=== PATIENT | male | born 1965 | race Caucasian/White ===

== ENCOUNTER 2016-07-20 06:43 | Day surgery (SDC) | payer BC ==
[2016-07-16 11:26] VITALS: BMI 33.0
[~2016-07-20 06:43] MED LIST: LACTATED RINGERS 1,000 ML IV SCH
[2016-07-20 07:04] VITALS: RESP 18; TEMP 98.2
[2016-07-20] MEDS ORDERED: LIDOCAINE 1% 20 ML VIAL (10MG/ML) FOR IV START SQ ONE (07:14)
[2016-07-20] MEDS ORDERED: LACTATED RINGERS 1,000 ML IV ONE (07:16)
[2016-07-20] MEDS ORDERED: fentaNYL (PF) 50 MCG/ML 2 ML AMP ONE (07:40)
[2016-07-20] MEDS ORDERED: IOHEXOL 180 MG/ML 1 ML ML ONE (07:40)
[2016-07-20] MEDS ORDERED: BUPIVACAINE (PF) 0.25% 30 ML VIAL ONE (07:40)
[2016-07-20] MEDS ORDERED: MIDAZOLAM 2 MG/2 ML VIAL ONE (07:40)
[2016-07-20] MEDS ORDERED: TRIAMCINOLONE ACETONIDE 40 MG/ML 1 ML VIAL ONE (07:40)
--- NOTE | 2016-07-20 08:14 | P.PCN ---
Date of Procedure: 07/20/16 Preoperative Diagnosis: Left lumbar radiculopathy Postoperative Diagnosis: Left lumbar radiculopathy Procedure(s) Performed: Lumbar epidural steroid injection under fluoroscopic guidance Implants: Anesthesia: MAC Surgeon: Librado Valdez Pathology: none sent Condition: stable Disposition: PACU Indications for Procedure: Operative Findings: Description of Procedure: The patient was seen in preoperative holding area consent was obtained then he was brought into the procedure room and placed in prone position. Skin was prepped with Betadine 3 and draped in a sterile manner. Lidocaine 1% was used to numb the skin over the target point was at the L4 5 level in the left paramedian approach. I used 5 inch 18-gauge Touhy epidural needle with loss-of- resistance to air to identify the epidural space. There was positive loss-of- resistance to air at about 11 cm from skin negative aspiration for any CSF or blood negative paresthesia. 1 mL of Omnipaque was given given which showed typical epidurogram on AP and lateral views of fluoroscopy after that I injected 40 mg of Kenalog +2 MLS of Marcaine 0.25% +4 MLS of preservative free normal saline to a total volume of 7 MLS in epidural space. Pt tolerated Procedure well. I ordered an MRI on the lumbar spine without contrast for the patient's lumbar radiculopathy on the left side and I will give him prescription of Percocet to last him until he comes back to see us on August 16. The patient also will be given prescription for Lyrica 50 mg 3 times a day for 3 months.
[2016-07-20] MEDS ORDERED: IV FLUID CONTINUATION 1,000 ML IV ONE (08:16)
[2016-07-20 08:41] VITALS: BP 105/67; PULSE 53
--- NOTE | 2016-07-20 11:59 | FL ---
EXAMINATION TYPE: FL guided pain mgmt statistic DATE OF EXAM: 07/20/2016 8:11 AM COMPARISON: NONE HISTORY: Back pain Fluoroscopy support supplied to the referring clinician. See dictated report from anesthesia, 2 intr aoperative C-arm images document the procedure, 11 seconds of fluoroscopy time supplied
== END 2016-07-20 09:02 | disposition home or self-care (01) ==
LOC: ORPAIN 06:43
PROVIDERS: ATTEND Anesthesiology
DX: M54.16 Radiculopathy, lumbar region (principal); I10 Essential (primary) hypertension; Z79.899 Other long term (current) drug therapy
CPT/HCPCS: 62323; J2250; J3301; Q9965; J3010

== ENCOUNTER → 2016-08-17 | Outpatient (CLI) | payer BC ==
[2016-08-17 13:48] VITALS: BP 143/79; PULSE 71; RESP 16; TEMP 98.4
--- NOTE | 2016-08-18 11:56 | P.PN ---
Subjective This is follow-up visit for this patient with a history of severe and chronic low back pain secondary to lumbar degenerative disc disease, lumbar facet arthropathy, sacroiliitis we have done interventional pain management injection , lumbar epidural steroid injections, and is currently on pain medications 1- fentanyl patch 75 g every 72 hours 2-Percocet 10/325 every 4-6 hours 3-baclofen 10 mg daily to 8 hours, trazodone 100 mg daily at bedtime , amitriptyline 50 mg daily at bedtime , Lyrica 50 3 times a day Patient denies any side effects of the medication, denies excessive drowsiness or sleepiness, denies suicidal ideation, and reports that the current pain medication is helping To control the pain and improve activity of daily living, he reported that he has difficulty sleeping at night, and he feel depressed mood and he is asking if he can refer him to get professional help regarding his depression Physical Examinations : 1-Constitutiona : Cooperative , not in acute distress . 2-HEENT : nech ; supple , no Lymphadenopathy , no Thyromegaly , normal thyroid size . eyes : no ptosis , no icterus, no photophobia . ENT : normal of hearing , normal oropharynx , no Thrush . 3- Respiratory : Chest clear to auscultations Bilaterally , no wheezing , no Rhonchi . 4- Cardiovascular : regular rate and rhythem , S1 , S2 , no S3 , no S4. 5- Gastrointestinal : abdomen soft no tenderness , bowel sounds positive all four quadrents , no organomegally . 6- Genitourinary : Defferred . 7- neurologic : Cranial nerve II to XII intact , no focal neurological deffecit . 8-psychatric : alert , oriented X 3 , appropriate affect , intact judgment and insight . 9-Lymphatic : no Lymphadenopathy . 10- musculoskeltal : exams of the cervical spine = motor strength normal bilateral upper extremities facet loading test cervical area positive. exams of the Lumber spine = motor strength lower extremities ,thigh and legs .5/5 deep tendon reflexes : normal Knee Jerk , normal ankle Jerk . lumber facet Loading Test positive strait leg raising test positive at 30 degree , RT ,LT , Fabere test positive RT and positive LT . Range of motion: Range of motion in flexion of the lumbar spine 30 degrees Range of motion range of motion of extension of the lumbar spine 10 Sever tenderness over the Sacroiliac joint on the Left side Assessment and plan = - Chronic low back pain secondary to lumbar degenerative disc disease , lumbar spondylosis with facet arthropathy without myelopathy , and left sacroiliitis -chronic and current use of high-risk medication (Opioids). The patient was counseled about risk of opioid use, psychological risk associated with opioids and was orally counseled to not overuse , abuse , divert ,or sell dictations to take medications as prescribed only , and to restore medication in safe location , and patient counseled against driving while using narcotic medications, and also not to use alcohol or any illicit recreational drugs the patient's verbalized understanding that the lack of compliance will result in failure to renew narcotic prescription and possible discharge from the clinic - diagnoses, prognosis, and treatment options including but not limited to physical therapy, surgical interventions, interventional therapies and medication management including narcotics and adjuvant medication were discussed with the patient and all questions answered to the patient's satisfaction. -medication refile =1-fentanyl patch 75 g every 72 hours 2-increased trazodone to 200 mg daily at bedtime to improve his sleeping habits and also to help his depression 3-discontinue amitriptyline 4-start patient on Cymbalta 30 mg daily 5-continue baclofen 10 mg every 8 hours continue Lyrica 50 mg every 8 hours , and patient will be referred to psychology/ psychiatry evaluation regarding his depression and patient will follow up with the pain clinic in 2 months Objective - Vital Signs Vital signs: Vital Signs Temp 98.4 F 08/17/16 13:37 Pulse 71 08/17/16 13:37 Resp 16 08/17/16 13:37 BP 143/79 08/17/16 13:37 Pulse Ox 96 08/17/16 13:37 Intake & Output 08/17/16 08/18/16 08/18/16 18:59 06:59 18:59 Weight 104.326 kg
== END | disposition home or self-care (01) ==
LOC: PNWHC3 12:49
PROVIDERS: ATTEND Specialist
DX: G89.29 Other chronic pain (principal); M51.36 Other intervertebral disc degeneration, lumbar region; M46.96 Unspecified inflammatory spondylopathy, lumbar region; M47.816 Spondylosis without myelopathy or radiculopathy, lumbar region; M46.1 Sacroiliitis, not elsewhere classified; F32.9 Major depressive disorder, single episode, unspecified; Z79.891 Long term (current) use of opiate analgesic; Z79.899 Other long term (current) drug therapy
CPT/HCPCS: 99211

== ENCOUNTER → 2016-10-13 | Outpatient (CLI) | payer BC ==
[2016-10-13 14:33] VITALS: BP 116/69; PULSE 62; RESP 16; TEMP 98.1
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
== END | disposition home or self-care (01) ==
LOC: PNWHC3 13:20
PROVIDERS: ATTEND Anesthesiology
DX: G89.29 Other chronic pain (principal); I10 Essential (primary) hypertension; D64.9 Anemia, unspecified; Z79.899 Other long term (current) drug therapy; Z98.1 Arthrodesis status
CPT/HCPCS: 80307; 80354; 80364; 99211

== ENCOUNTER → 2016-11-03 | Outpatient (CLI) | payer BC ==
--- NOTE | 2016-11-03 18:38 | MR ---
EXAMINATION TYPE: MR lumbar spine wo con DATE OF EXAM: 11/03/2016 4:35 PM COMPARISON: NONE HISTORY: LOW BACK PAIN SINCE 2001 TECHNIQUE: Multiplanar, multisequence images of the lumbar spine were acquired. L1-L2: Normal disc appearance without desiccation. No herniation, protrusion or disc bulging. No ca nal stenosis is present. Foramina are patent bilaterally. L2-L3: Normal disc appearance without desiccation. No herniation, protrusion or disc bulging. No ca nal stenosis is present. Foramina are patent bilaterally. L3-L4: Normal disc appearance without desiccation. No herniation, protrusion or disc bulging. No ca nal stenosis is present. Foramina are patent bilaterally. L4-L5: Mild decreased signal compatible with degenerative disc desiccation. Mild posterior disc bulge . No herniation or protrusion. No evidence for central stenosis. Foramina are patent. There is grade 1 anterolisthesis of L4 on L5 measuring 2 mm. No evidence of spondylolysis. L5-S1: Mild decreased signal compatible with degenerative disc desiccation. Mild posterior disc bulge . No herniation or protrusion. No evidence for central stenosis. Foramina are patent. There is grade 1 posterior listhesis of L5 on S1 measuring 2 mm. No evidence of spondylolysis. Lumbar segments are intact. No paraspinal masses are identified. Conus medullaris has a normal appe arance. IMPRESSION: 1. Mild degenerative disc disease at L4-5 and L5-S1 with associated degenerative listhesis.
== END | disposition home or self-care (01) ==
LOC: RADMRIMAIN 15:44
PROVIDERS: ATTEND Anesthesiology
DX: M51.17 Intervertebral disc disorders with radiculopathy, lumbosacral region (principal)
CPT/HCPCS: 72148

== ENCOUNTER → 2016-12-15 | Outpatient (CLI) | payer BC ==
[2016-12-15 12:20] VITALS: BP 110/64; PULSE 56; RESP 18; TEMP 97.9
--- NOTE | 2016-12-15 12:51 | P.PN ---
Subjective This is follow-up visit for this patient with a history of severe and chronic low back pain secondary to lumbar degenerative disc diseases , lumbar spondylosis with facet arthropathy , we have done interventional pain management injection,, continued to have severe low back pain and is currently on pain medications 1-fentanyl patch 75 g every 72 hours 2-Percocet 10/325 every 4-6 hours 3-Lyrica 50 mg every 8 hours 4-baclofen 10 mg 3 times a day Patient denies any side effects of the medication, denies excessive drowsiness or sleepiness, denies suicidal ideation, and reports that the current pain medication is helping To control the pain and improve activity of daily living Patient denies any motor or sensory deficit , patient denies any fever or night sweats, denies any change in the bowel movements or urination Objective - Vital Signs Vital signs: Vital Signs Temp 97.9 F 12/15/16 12:15 Pulse 56 L 12/15/16 12:15 Resp 18 12/15/16 12:15 BP 110/64 12/15/16 12:15 Pulse Ox 97 12/15/16 12:15 Intake & Output 12/14/16 12/15/16 12/15/16 18:59 06:59 18:59 Weight 104.326 kg - Exam Physical Examinations : 1-Constitutiona : Cooperative , not in acute distress . 2-HEENT : nech ; supple , no Lymphadenopathy , normal thyroid size . eyes : no ptosis , no icterus, no photophobia . ENT : normal of hearing , normal oropharynx , no Thrush . 3- Respiratory : Chest clear to auscultations Bilaterally , no wheezing , no Rhonchi . 4- Cardiovascular : regular rate and rhythem , S1 , S2 , no S3 , no S4. 5- Gastrointestinal : abdomen soft no tenderness , bowel sounds positive all four quadrents , no organomegally . 6- Genitourinary : Defferred . 7- neurologic : Cranial nerve II to XII intact , no focal neurological deffecit . 8-psychatric : alert , oriented X 3 , appropriate affect , intact judgment and insight . 9-Lymphatic : no Lymphadenopathy . 10- musculoskeltal : exams of the Lumber spine = normal moter stegnth lower extremities ,thigh and legs .5/5 deep tendon reflexes : normal Knee Jerk , normal ankle Jerk . positive lumber facet Loading Test strait leg raising test positive at 30 degree , RT ,LT , Fabere test positive RT and positive LT . Sever tenderness over the Sacroiliac joint on the Right , and Left side Assessment and Plan Plan: Assessment and plan = - Chronic low back pain secondary to lumbar degenerative disc disease , lumbar spondylosis with facet arthropathy without myelopathy , sacroiliitis -chronic and current use of high-risk medication (Opioids). -Patient denies any side effect of the medication, and the current medication helped the patient to control the pain and improve activity of daily living, The patient was counseled about risk of opioid use, psychological risk associated with opioids discussed with the patient, body mass index and exercise. Patient signed the narcotic agreement , and was orally counseled not to overuse , abuse , divert, or sell medications ,and take them as prescribed only , and the patient was counseled against driving and while you are using the narcotic medication also not to use alcohol or any illicit drugs and the patient verbalized understanding that lack of compliance and could result in failure to renew narcotics prescriptions and possible discharge from the clinic - diagnoses, prognosis, and treatment options including but not limited to physical therapy, surgical interventions, interventional therapies and medication management including narcotics and adjuvant medication were discussed with the patient and all questions answered to the patient's satisfaction. -medication refile =1-fentanyl patch 75 g every 72 hours dispense 10 with one refill 2-Percocet 10/325 every 4-6 hours dispense 150 with 1 refill 3-increase Lyrica to 75 g 3 times a day dispense 90 with 1 refill -procedure=none Time with Patient: Less than 30
== END | disposition home or self-care (01) ==
LOC: PNWHC3 11:50
PROVIDERS: ATTEND Specialist
DX: M51.36 Other intervertebral disc degeneration, lumbar region (principal); M47.816 Spondylosis without myelopathy or radiculopathy, lumbar region; M46.86 Other specified inflammatory spondylopathies, lumbar region; M46.1 Sacroiliitis, not elsewhere classified
CPT/HCPCS: 99211

== ENCOUNTER → 2017-02-09 | Outpatient (CLI) | payer BC ==
[2017-02-09 12:59] VITALS: BP 103/69; PULSE 50; RESP 16; TEMP 97.1
--- NOTE | 2017-02-09 13:41 | P.PN ---
Progress Note - Text Patient returns for followup for chronic back pain with radiation to left leg > R leg. Patient underwent MRI in October, results below. Patient continues on high-dose fentanyl patch, Percocet, Lyrica medications for pain with good relief. Patient denies adverse drug effects from medications. Today, pt denies new-onset weakness, bowel/bladder incontinence, or any other signs or symptoms of cauda equina syndrome. There are no signs of acute intoxication, and no indications of medication diversion or overuse. In addition to above, 13-point review of systems is also negative for chest pain , shortness of breath, changes in vision, changes in hearing, new onset weakness , abdominal pain, diarrhea, extreme fatigue, malaise, fever, skin changes, homicidal or suicidal ideation, or bowel or bladder incontinence. Vital Signs: Reviewed in EMR Gen: WDWN, AAOx3, NAD HEENT: NCAT, EOMI, hearing grossly normal Pulm: resp unlabored Abd: soft, NT, ND Neck: supple, trachea midline ROM in flexion lumbar spine: reduced ROM in extension lumbar spine: reduced Lumbar paravertebral tenderness: ++ Facet loading: ++ bilateral SI joint tenderness: + bilaterally Stas's test: + R > L Straight leg raise: + RLE at 30 degrees Lower extremity: +4/5 strength bilateral LEs due to pain, more pain with movement of RLE Neuro: CN II-XII grossly intact, muscle strength lower extremities PRESERVED Imaging: MRI lumbar spine dated 11/03/2016 demonstrates a mild posterior disc bulge at the L4-L5 level with no evidence of herniation or protrusion or evidence of's central canal stenosis. There is grade 1 anterolisthesis of L4 on L5 measuring 2 mm. The L5-S1 level there is mild decreased signal compatible with degenerative disc desiccation. There is a mild posterior disc bulge without evidence of central canal stenosis, herniation, or protrusion. There is grade 1 posterolisthesis of L5 on S1 measuring 2 mm. Assessment: 1. lumbar DDD 2. sacroiliitis 3. lumbar spondylosis without myelopathy 4. knee OA Plan: 1. Explanation: Opioid and psychological risk scores were reviewed. Diagnoses , prognoses, and multiple treatment options including but not limited to physical therapy, interventional therapies, adjuvant medical therapies, narcotic medication therapies, and surgery were discussed with the patient and all questions were answered to the patient's satisfaction. 2. Opioid agreement: Patient has previously signed narcotic agreement, and was orally counseled to not overuse, abuse, divert, or cell medications, and to take them as prescribed by only 1 healthcare provider. The patient was also counseled to store opioid medications in a safe and preferably locked location. Patient was also counseled against driving while using narcotic medications and also to not use alcohol or any illicit or recreational drugs. The patient verbalized understanding that lack of compliance with any of the above and likely result in failure to renew narcotic prescriptions, possible discharge from the clinic, and possible legal ramifications thereafter if indicated. 3. Counseling: The patient was counseled extensively on BODY MASS INDEX, EXERCISE. Specifically, the patient was instructed regarding the importance of smoking cessation, obesity, and exercise in the context of both chronic pain and overall health. 4. Procedures: none for now 5. Consultations: None 6. Investigations: None 7. Medications: refill fentanyl patch 75 mcg x 10 with one refill, Percocet 10/ 325 #135 and then #120 8. Disposition: f/u for re-eval in 2 months. MRI findings from October are largely negative. I believe strongly that this patient's pain is due to some component of psychological issues (depression/anxiety) and in part from opioid- induced hyperalgesia. For this reason and the fact that he is at 270 MME/day with his opioids, we will decrease his Percocet to #120 over the next two months and to #90 over the next two months after that. Once this is completed, we can begin to decrease his fentanyl patch and I anticipate that his pain will improve. PQRS measures: 1-Patient's medications are documented in the chart. 2-Tobacco use is negative, counseling NOT given 3-Patient has not had a pneumococcal vaccine. 4-Advanced care planning discussed, patient unable to give. 5-Opioid contract signed with the patient. 6-Pain positive, follow-up visit or procedure scheduled 7-Patient's blood pressure measured and documented, and patient will follow up with the primary care due to hypertension. 8-Patient's weight was measured, and body mass index ABOVE the normal limits, and counseling was done. Patient instructed to follow up with PCP. 9-Patient WAS NOT identified as an unhealthy alcohol user.
== END ==
LOC: PNWHC3 12:24
PROVIDERS: ATTEND Anesthesiology
DX: M51.36 Other intervertebral disc degeneration, lumbar region (principal); M47.816 Spondylosis without myelopathy or radiculopathy, lumbar region; M53.3 Sacrococcygeal disorders, not elsewhere classified; M17.9 Osteoarthritis of knee, unspecified; Z79.899 Other long term (current) drug therapy; Z79.891 Long term (current) use of opiate analgesic
CPT/HCPCS: 99211

== ENCOUNTER 2017-03-29 12:29 | Emergency (ER) | payer BC ==
--- NOTE | 2017-03-29 14:29 | XR ---
Lumbosacral spine HISTORY: Pain 10 views of the lumbosacral spine are submitted. There is multilevel spondylosis. No spondylolysis or spondylolisthesis. Lumbar vertebral bodies show preserved height and bone mineralization. Minimal anterolisthesis grade 1 L4-5. Loss of disc height p resent at L4-5. Vascular calcifications are noted incidentally. Large amount of retained fecal debris is suspected. IMPRESSION: Degenerative disc disease, spondylolisthesis. Correlate for possible fecal stasis.
--- NOTE | 2017-03-29 14:31 | XR ---
Thoracic spine HISTORY: Pain 3 views of the thoracic spine submitted on 6 images There is a mild levoscoliosis centered at the lower thoracic spine. Postop changes are noted in the l ower cervical spine. There is multilevel spondylosis. Thoracic vertebral bodies show preserved height , alignment, and bone mineralization. Mild disc height loss present at the inferior thoracic spine. IMPRESSION: Scoliosis, degenerative disc disease. Postop changes.
--- NOTE | 2017-03-29 14:38 | XR ---
PA chest x-ray with right RIBS HISTORY: Pain Frontal view of the chest and 4 views of the right ribs are submitted on a total of 11 images. Exam correlated to the thoracic spine same date. Postop changes are noted to the lower cervical spine. Chest x-ray shows no acute cardiopulmonary dise ase. Cardiac mediastinal silhouette, pulmonary vascularity and jordan within normal limits. There is no evident pneumonia, pneumothorax, or pleural effusion. There is no evident displaced rib fracture, bone mineralization is maintained. Thoracic spondylosis is present. Acromioclavicular joint arthropathy changes present. IMPRESSION: No acute abnormality. Bone scan could be performed for increased sensitivity as indicated .
[2017-03-29 14:55] VITALS: BP 110/68; PULSE 66; RESP 18; TEMP 98.6
== END 2017-03-29 14:53 ==
LOC: EC 12:29
DX: M51.36 Other intervertebral disc degeneration, lumbar region (principal); M41.9 Scoliosis, unspecified; Z79.899 Other long term (current) drug therapy
CPT/HCPCS: 72072; 72110; 96372; 99283

== ENCOUNTER → 2017-04-06 | Outpatient (CLI) | payer BC ==
[2017-04-06 13:12] VITALS: BP 129/77; PULSE 53; RESP 16
--- NOTE | 2017-04-06 13:25 | P.PN ---
Progress Note - Text Patient returns for followup for chronic back pain with radiation to left leg > R leg. Patient recently went to ER with right-sided thoracic pain and rib pain , MRI ordered for later this week. Patient continues on high-dose fentanyl patch, Percocet, Lyrica medications for pain with some relief. Patient denies adverse drug effects from medications. Today, pt denies new-onset weakness, bowel/bladder incontinence, or any other signs or symptoms of cauda equina syndrome. There are no signs of acute intoxication, and no indications of medication diversion or overuse. In addition to above, 13-point review of systems is also negative for chest pain , shortness of breath, changes in vision, changes in hearing, new onset weakness , abdominal pain, diarrhea, extreme fatigue, malaise, fever, skin changes, homicidal or suicidal ideation, or bowel or bladder incontinence. Vital Signs: Reviewed in EMR Gen: WDWN, AAOx3, NAD HEENT: NCAT, EOMI, hearing grossly normal Pulm: resp unlabored Abd: soft, NT, ND Neck: supple, trachea midline Thoracic spine: + TTP R thoracic facets, TTP over lower right ribs Neuro: CN II-XII grossly intact, muscle strength lower extremities PRESERVED Imaging: MRI lumbar spine dated 11/03/2016 demonstrates a mild posterior disc bulge at the L4-L5 level with no evidence of herniation or protrusion or evidence of's central canal stenosis. There is grade 1 anterolisthesis of L4 on L5 measuring 2 mm. The L5-S1 level there is mild decreased signal compatible with degenerative disc desiccation. There is a mild posterior disc bulge without evidence of central canal stenosis, herniation, or protrusion. There is grade 1 posterolisthesis of L5 on S1 measuring 2 mm. Assessment: 1. lumbar DDD 2. sacroiliitis 3. lumbar spondylosis without myelopathy 4. knee OA Plan: 1. Explanation: Opioid and psychological risk scores were reviewed. Diagnoses , prognoses, and multiple treatment options including but not limited to physical therapy, interventional therapies, adjuvant medical therapies, narcotic medication therapies, and surgery were discussed with the patient and all questions were answered to the patient's satisfaction. 2. Opioid agreement: Patient has previously signed narcotic agreement, and was orally counseled to not overuse, abuse, divert, or cell medications, and to take them as prescribed by only 1 healthcare provider. The patient was also counseled to store opioid medications in a safe and preferably locked location. Patient was also counseled against driving while using narcotic medications and also to not use alcohol or any illicit or recreational drugs. The patient verbalized understanding that lack of compliance with any of the above and likely result in failure to renew narcotic prescriptions, possible discharge from the clinic, and possible legal ramifications thereafter if indicated. 3. Counseling: The patient was counseled extensively on BODY MASS INDEX, EXERCISE. Specifically, the patient was instructed regarding the importance of smoking cessation, obesity, and exercise in the context of both chronic pain and overall health. 4. Procedures: none for now 5. Consultations: None 6. Investigations: None 7. Medications: refill fentanyl patch 75 mcg x 10 with no refill, Percocet 10/ 325 #120 with no refill 8. Disposition: f/u for re-eval in 1 month. Will review MRI findings at next visit. Consider R intercostal nerve blocks vs. thoracic MBB at next visit. PQRS measures: 1-Patient's medications are documented in the chart. 2-Tobacco use is negative, counseling NOT given 3-Patient has not had a pneumococcal vaccine. 4-Advanced care planning discussed, patient unable to give. 5-Opioid contract signed with the patient. 6-Pain positive, follow-up visit or procedure scheduled 7-Patient's blood pressure measured and documented, and patient will follow up with the primary care due to hypertension. 8-Patient's weight was measured, and body mass index ABOVE the normal limits, and counseling was done. Patient instructed to follow up with PCP. 9-Patient WAS NOT identified as an unhealthy alcohol user.
== END | disposition home or self-care (01) ==
LOC: PNWHC3 12:45
PROVIDERS: ATTEND Anesthesiology
DX: M51.36 Other intervertebral disc degeneration, lumbar region (principal); M47.816 Spondylosis without myelopathy or radiculopathy, lumbar region; M46.1 Sacroiliitis, not elsewhere classified; M17.10 Unilateral primary osteoarthritis, unspecified knee
CPT/HCPCS: 99211

== ENCOUNTER → 2017-04-08 | Outpatient (CLI) | payer BC ==
--- NOTE | 2017-04-10 07:46 | MR ---
MR thoracic spine without contrast HISTORY: Thoracic spine pain Multiplanar multisequence imaging through the thoracic spine Correlation to plain film 03/29/2017 There is a levoscoliosis as noted on plain film. No significant foraminal encroachment is evident, no significant spinal stenosis. There is artifact on the exam. Postop changes noted in the cervical spi ne. There is multilevel spondylosis. Loss of disc height and signal is greatest at T7-8, T8-9, T9-10 and T10-11. Some endplate Schmorl's nodes are present. Thoracic vertebral bodies show preserved heigh t. Endplate discogenic marrow signal changes are present compatible with degenerative disc disease. T horacic cord signal is maintained. Posterior to the T10 vertebral body to the right of midline suspect there is right paracentral disc h erniation with possible sequestered fragment causing minimal anterolateral mass effect on the thecal sac. This is not well seen in the axial plane however. This may arise from T10-11 disc space. IMPRESSION: Scoliosis, degenerative disc disease. Suspect disc herniation as described with possible sequestered fragment with limitations as above.
== END | disposition home or self-care (01) ==
LOC: RADMRIMAIN 20:59
PROVIDERS: ATTEND Nurse Practitioner
DX: M51.34 Other intervertebral disc degeneration, thoracic region (principal); M41.9 Scoliosis, unspecified
CPT/HCPCS: 72146

== ENCOUNTER → 2017-09-01 | Outpatient (CLI) | payer BC ==
[2017-09-01 13:28] VITALS: BP 111/68; PULSE 68; RESP 18; TEMP 98.7
--- NOTE | 2017-09-01 15:05 | P.PN ---
Subjective Progress Note Date: 09/01/17 This is follow-up visit for this patient with a history of severe and chronic mid and low back pain secondary to lumbar degenerative disc disease, lumbar facet arthropathy,, and also patient had thoracic degenerative disc disease , currently is complaining of severe left-sided low back pain patient currently on Percocet 10/325 every 6 hours , fentanyl patch 75 g every 72 hours , baclofen 10 mg 3 times a day Patient denies any side effects of the medication, denies excessive drowsiness or sleepiness, denies suicidal ideation, and reports that the current pain medication is NOT helping To control the pain and improve activity of daily living . Patient denies any motor or sensory deficit, denies change in bowel movement or urination, patient denies any fever or night sweats and patient here for follow-up visit and medication refill Objective - Vital Signs Vital signs: Vital Signs Temp 98.7 F 09/01/17 13:22 Pulse 68 09/01/17 13:22 Resp 18 09/01/17 13:22 BP 111/68 09/01/17 13:22 Pulse Ox 97 09/01/17 13:22 Intake & Output 08/31/17 09/01/17 09/01/17 18:59 06:59 18:59 Weight 92.986 kg - Exam Physical Examinations : 1-Constitutiona : Cooperative , not in acute distress . 2-HEENT : nech ; supple , no Lymphadenopathy , normal thyroid size . eyes : no ptosis , no icterus, no photophobia . ENT : normal of hearing , normal oropharynx , no Thrush . 3- Respiratory : Chest clear to auscultations Bilaterally , no wheezing , no Rhonchi . 4- Cardiovascular : regular rate and rhythem , S1 , S2 , no S3 , no S4. 5- Gastrointestinal : abdomen soft no tenderness , bowel sounds positive all four quadrents , no organomegally . 6- Genitourinary : Defferred . 7- neurologic : Cranial nerve II to XII intact , no focal neurological deffecit . 8-psychatric : alert , oriented X 3 , appropriate affect , intact judgment and insight . 9-Lymphatic : no Lymphadenopathy . 10- musculoskeltal : cervical spine = motor stregnth in the deltoid and biceps, motor stregnth biceps and the wrist extensors (C6) . motor stregnth in the triceps muscle . deep tendon reflexes normal at the biceps , normal at Brachioradialis , normal at the Triceps positive cervical facet loading test . , Lumber spine = normal moter stegnth lower extremities ,thigh and legs .5/5 deep tendon reflexes : normal Knee Jerk , normal ankle Jerk . lumber facet Loading Test positive strait leg raising test positive at 30 degree Right , positve at 30 degree Left Fabere test positive Right and positive Left Sever tenderness over the Sacroiliac joint on the Left side Assessment and Plan Plan: Assessment and plan= chronic low back pain secondary to lumbar degenerative disc disease , lumbar spondylosis with lumbar facet arthropathy , thoracic degenerative disc disease Currently is complaining of severe low back pain mainly on the left side, and excellent support that the cause of his pain mostly from the sacroiliitis chronic and current use of high-risk medication (opioids) Patient denies any side effects of the current pain medication and the current treatment/medication ML and the patient to do activity of daily living , Diagnoses, prognosis, treatment options, including but not limited to physical therapy, medication management, interventional therapies, and surgery, were discussed with the patient All the questions answered Patient signed the narcotic agreement, and he was orally counseled, not to overuse, not to abuse, not to Divert , not tp sell pain medication, and to take it as prescribed only, Patient was counseled not to drive or operate heavy equipment while using narcotic medication, and advised not to use alcohol or any Illicit drugs while using the narcotis, the patient's verbalized understanding that lack of compliance with any of the above instructions and will likely to cause discharge from the pain service, not to renew his narcotic prescriptions Medication managements= e prescription refills for Percocet 10/325 every 6 hours dispensed 120 with one refill, fentanyl patch 75 g every 72 hours dispense 10 with one refill, Baclofen 10 mg 3 times a day dispense 90 with 1 refill Patient could benefit from left-sided sacroiliac joint steroid injection , will do it was initially had good relief on 2 different occasions and he will be good candidate to have left- sided radiofrequency ablation of the left sacroiliac joint , Time with Patient: Less than 30
== END | disposition home or self-care (01) ==
LOC: PNWHC3 13:00
PROVIDERS: ATTEND Specialist
DX: G89.29 Other chronic pain (principal); M51.36 Other intervertebral disc degeneration, lumbar region; M47.816 Spondylosis without myelopathy or radiculopathy, lumbar region; M46.86 Other specified inflammatory spondylopathies, lumbar region; M51.34 Other intervertebral disc degeneration, thoracic region; Z79.891 Long term (current) use of opiate analgesic; Z79.899 Other long term (current) drug therapy
CPT/HCPCS: 99211

== ENCOUNTER 2017-09-21 08:35 | Day surgery (SDC) | payer BC ==
[2017-09-20 11:46] VITALS: BMI 29.4
[~2017-09-21 08:35] MED LIST changes: +LACTATED RINGERS 1,000 ML IV ONE; -LACTATED RINGERS 1,000 ML IV SCH
[2017-09-21 09:25] VITALS: TEMP 98.3
--- NOTE | 2017-09-21 10:00 | P.PCN ---
Date of Procedure: 09/21/17 Procedure(s) Performed: Preoperative diagnoses= 1-left sacroiliitis. 2-left sacroiliac joint degenerations Postoperative diagnoses= same as preoperative diagnosis. Procedure= Left sacroiliac joint steroid injection under fluoroscopic guidance. Anesthesia= moderate sedation with Versed 4 mg and fentanyl 100 micrograms and local infiltration with lidocaine 1% 2 ml Estimated blood loss=minimal. Procedure indication= the patient had a history of severe chronic low back pain , diagnosed with sacroiliitis and lumbar sacral facet arthropathy unresponsive to conservative treatment. Procedure description= the patient was seen and identified in the preoperative holding area, risks and benefits and alternative of the procedure and possible complications discussed with the patient, and he agreed with the preceding, patient signed the consent, an IV was started, and vital signs were monitored and were stable throughout the procedure, patient was placed in the prone position or table and the lumbosacral area was prepped and draped with a sterile fashion, vital signs were closely monitored during the procedure, the fluoroscopy camera was placed in the contralateral oblique view on the left sacroiliac joint and the lower part of the joint was identified, local infiltration of the skin and subcutaneous tissue with lidocaine 1% 2 mL then a 22-gauge Quincke-type spinal needle advanced slowly under fluoroscopy and placed in the posterior and inferior border of the left sacroiliac joint, placement confirmed with AP and lateral view, and after appropriate needle placement confirmed and after negative aspiration for heme and CSF and there was no paresthesia during the injection, 3 ml of Marcaine 0.5% and 40 mg of Kenalog injected after negative aspiration, the needle removed, Patient tolerated the procedure well without any complication, The patient returned to supine position after the back was cleaned and a Band- Aid applied, the patient transported to recovery room in stable condition and he was monitored for 30 minutes before he was discharged home and then patient was reexamined before going home and patient was discharged in stable condition and patient will follow up with the pain clinic in a few weeks
[2017-09-21] MEDS ORDERED: IV FLUID CONTINUATION 1,000 ML IV ONE (10:02)
[2017-09-21 10:09] VITALS: RESP 18
[2017-09-21 10:37] VITALS: BP 109/78; PULSE 78
--- NOTE | 2017-09-26 11:01 | FL ---
EXAMINATION TYPE: FL guided pain mgmt statistic DATE OF EXAM: 09/21/2017 COMPARISON: NONE HISTORY: Sacroiliac joint injection secondary to pain TECHNIQUE: Fluoroscopy. FINDINGS/IMPRESSION: Fluoroscopic guidance was provided during procedure performed by Dr. Pate. A total of 32 seconds of fluoroscopic time was utilized during the procedure and 1 spot images was a cquired demonstrating localization of the sacroiliac joint.
== END 2017-09-21 10:48 | disposition home or self-care (01) ==
LOC: ORPAIN 08:35
PROVIDERS: ATTEND Specialist
DX: G89.29 Other chronic pain (principal); M46.1 Sacroiliitis, not elsewhere classified; M47.817 Spondylosis without myelopathy or radiculopathy, lumbosacral region; I10 Essential (primary) hypertension; Z98.84 Bariatric surgery status
CPT/HCPCS: 27096; J2250; J3301; J3010; 99152

== ENCOUNTER 2017-10-17 09:34 | Day surgery (SDC) | payer BC ==
[2017-10-12 09:28] VITALS: BMI 29.4
[~2017-10-17 09:34] MED LIST changes: -LACTATED RINGERS 1,000 ML IV ONE; +LACTATED RINGERS 1,000 ML IV SCH
[2017-10-17] MEDS ORDERED: LIDOCAINE 1% 20 ML VIAL (10MG/ML) FOR IV START INTRADERMA ONE (10:51)
[2017-10-17 10:54] VITALS: TEMP 98.4
--- NOTE | 2017-10-17 11:47 | P.PCN ---
Date of Procedure: 10/17/17 Procedure(s) Performed: Preoperative diagnoses= 1-sacroiliitis. 2-lumbar spondylosis Postoperative diagnoses= same as preoperative diagnosis. Procedure= Left sacroiliac joint steroid injection under fluoroscopic guidance. Anesthesia= moderate sedation with Versed 2 mg and fentanyl 100 micrograms and local infiltration with lidocaine 1% 4 ml Estimated blood loss=minimal. Procedure indication= the patient had a history of severe chronic low back pain , diagnosed with sacroiliitis and lumbar sacral facet arthropathy unresponsive to conservative treatment. Procedure description= the patient was seen and identified in the preoperative holding area, risks and benefits and alternative of the procedure and possible complications discussed with the patient, and he agreed with the preceding, patient signed the consent, an IV was started, and vital signs were monitored and were stable throughout the procedure, patient was placed in the prone position or table and the lumbosacral area was prepped and draped with a sterile fashion, vital signs were closely monitored during the procedure, the fluoroscopy camera was placed in the contralateral oblique view on the right sacroiliac joint and the lower part of the joint was identified, local infiltration of the skin and subcutaneous tissue with lidocaine 1% 2 mL then a 22-gauge Quincke-type spinal needle advanced slowly under fluoroscopy and placed in the posterior and inferior border of the left sacroiliac joint, placement confirmed with AP and lateral view, and after appropriate needle placement confirmed and after negative aspiration for heme and CSF and there was no paresthesia during the injection, 4 ml of Marcaine 0.5% and 40 mg of Kenalog injected after negative aspiration, the needle removed, Patient tolerated the procedure well without any complication, The patient returned to supine position after the back was cleaned and a Band- Aid applied, the patient transported to recovery room in stable condition and he was monitored for 30 minutes before he was discharged home and then patient was reexamined before going home and patient was discharged in stable condition and patient will follow up with the pain clinic in a few weeks
--- NOTE | 2017-10-17 11:55 | FL ---
EXAMINATION TYPE: FL guided pain mgmt statistic DATE OF EXAM: 10/17/2017 FLUOROSCOPY Fluoroscopy time of 6 seconds was used during left SI joint injection. 1 image/s document/s the proc edure.
[2017-10-17] MEDS ORDERED: IV FLUID CONTINUATION 600 ML IV ONE (12:03)
[2017-10-17 12:37] VITALS: BP 103/66; PULSE 62; RESP 16
== END 2017-10-17 12:44 | disposition home or self-care (01) ==
LOC: ORPAIN 09:34
PROVIDERS: ATTEND Specialist
DX: G89.29 Other chronic pain (principal); M46.1 Sacroiliitis, not elsewhere classified; M47.816 Spondylosis without myelopathy or radiculopathy, lumbar region; I10 Essential (primary) hypertension
CPT/HCPCS: 27096; J2250; J3301; J3010

== ENCOUNTER → 2017-10-27 | Outpatient (CLI) | payer BC ==
[2017-10-27 12:34] VITALS: BP 157/87; PULSE 53; RESP 16
--- NOTE | 2017-10-27 13:12 | P.PN ---
Progress Note - Text Progress Note Date: 10/27/17 Patient returns for followup for chronic back pain with radiation to left leg > R leg. Patient continues on high-dose fentanyl patch, Percocet, Lyrica medications for pain with some relief. Patient denies adverse drug effects from medications. Today, pt denies new-onset weakness, bowel/bladder incontinence, or any other signs or symptoms of cauda equina syndrome. There are no signs of acute intoxication, and no indications of medication diversion or overuse. I reviewed patient's MRI with him and discuss his diagnosis of anterior listhesis. Patient states that he has radicular pain on his left side radiating down to the anterior aspect of his foot along the dorsum. Also describes radiating pain into his big toe. I discussed with him a transforaminal epidural steroid injection as a diagnostic and therapeutic tool to identify if that is the nerve root that is causing the majority of his low back pain and radiating pain. If he does have relief with transforaminal epidural injection we will likely refer him back to Dr. Thorne for surgical evaluation. In addition to above, 13-point review of systems is also negative for chest pain , shortness of breath, changes in vision, changes in hearing, new onset weakness , abdominal pain, diarrhea, extreme fatigue, malaise, fever, skin changes, homicidal or suicidal ideation, or bowel or bladder incontinence. Vital Signs: Reviewed in EMR Gen: WDWN, AAOx3, NAD HEENT: NCAT, EOMI, hearing grossly normal Pulm: resp unlabored Abd: soft, NT, ND Neck: supple, trachea midline Thoracic spine: + TTP R thoracic facets > L side Lumbar spine: + facet loading bilateral, L > R. lumbar flexion limited secondary to pain. Positive straight leg raise left at 30 with reproduced symptoms along L5 nerve root. Dorsiflexion left foot 4/5, left extensor hallux longus 4/5 Gait: Antalgic Neuro: CN II-XII grossly intact, muscle strength lower extremities PRESERVED Imaging: MRI lumbar spine dated 11/03/2016 demonstrates a mild posterior disc bulge at the L4-L5 level with no evidence of herniation or protrusion or evidence of's central canal stenosis. There is grade 1 anterolisthesis of L4 on L5 measuring 2 mm. The L5-S1 level there is mild decreased signal compatible with degenerative disc desiccation. There is a mild posterior disc bulge without evidence of central canal stenosis, herniation, or protrusion. There is grade 1 posterolisthesis of L5 on S1 measuring 2 mm. MRI thoracic spine demonstrates a potential right paracentral disc herniation at the T10 level with possible sequestered fragment. This is only seen in the sagittal not in the axial plane. There is also endplate discogenic marrow signal changes compatible with degenerative disc disease. There is multilevel spondylosis. There is loss of disc height and signal greatest at the T7-T8, T8- T9, T9-T10, and T10-T11 levels. Assessment: 1. Lumbar anterior listhesis L4-5 L5-S1 2. lumbar and thoracic DDD 3. Lumbosacral spondylosis 4.. lumbar spondylosis without myelopathy Plan: 1. Explanation: Opioid and psychological risk scores were reviewed. Diagnoses , prognoses, and multiple treatment options including but not limited to physical therapy, interventional therapies, adjuvant medical therapies, narcotic medication therapies, and surgery were discussed with the patient and all questions were answered to the patient's satisfaction. 2. Opioid agreement: Patient has previously signed narcotic agreement, and was orally counseled to not overuse, abuse, divert, or cell medications, and to take them as prescribed by only 1 healthcare provider. The patient was also counseled to store opioid medications in a safe and preferably locked location. Patient was also counseled against driving while using narcotic medications and also to not use alcohol or any illicit or recreational drugs. The patient verbalized understanding that lack of compliance with any of the above and likely result in failure to renew narcotic prescriptions, possible discharge from the clinic, and possible legal ramifications thereafter if indicated. 3. Counseling: The patient was counseled extensively on BODY MASS INDEX, EXERCISE. Specifically, the patient was instructed regarding the importance of smoking cessation, obesity, and exercise in the context of both chronic pain and overall health. 4. Procedures: Left L5 transforaminal epidural steroid injection 5. Consultations: Possible future referral to Dr. Thorne if patient has positive response to L5 transforaminal 6. Investigations: Maps reviewed and appropriate. UDS today 7. Medications: refill fentanyl patch 75 mcg x 10 with one refill, Percocet 10/ 325 #120 with one refill 8. Disposition: L5 left transforaminal PQRS measures: 1-Patient's medications are documented in the chart. 2-Tobacco use is negative, counseling NOT given 3-Patient has not had a pneumococcal vaccine. 4-Advanced care planning discussed, patient unable to give. 5-Opioid contract signed with the patient. 6-Pain positive, follow-up visit or procedure scheduled 7-Patient's blood pressure measured and documented, and patient will follow up with the primary care due to hypertension. 8-Patient's weight was measured, and body mass index ABOVE the normal limits, and counseling was done. Patient instructed to follow up with PCP. 9-Patient WAS NOT identified as an unhealthy alcohol user.
== END | disposition home or self-care (01) ==
LOC: PNWHC3 11:56
PROVIDERS: ATTEND Anesthesiology
DX: M43.17 Spondylolisthesis, lumbosacral region (principal); M51.35 Other intervertebral disc degeneration, thoracolumbar region; M47.816 Spondylosis without myelopathy or radiculopathy, lumbar region; Z79.899 Other long term (current) drug therapy
CPT/HCPCS: 80356; 99211

== ENCOUNTER → 2017-11-24 | Outpatient (CLI) | payer BC ==
[2017-11-24 13:23] VITALS: BP 116/77; PULSE 74; RESP 16
--- NOTE | 2017-11-25 11:13 | P.PAINPG ---
Subjective Progress Note Date: 11/24/17 This is follow-up visit for this patient with a history of severe and chronic mid and low back pain secondary to lumbar degenerative disc disease, lumbar facet arthropathy,,and Sacroiliitis , she had good result after the sacroiliac joint steroid injection , he reports occasionally the pain radiates to the lower extremity with occasional numbness and tingling sensation ,currently is complaining of severe left-sided low back pain patient currently on Percocet 10/325 every 6 hours , fentanyl patch 75 g every 72 hours , baclofen 10 mg 3 times a day ,cymbalta 60 mg Q hs Patient denies any side effects of the medication, denies excessive drowsiness or sleepiness, denies suicidal ideation, and reports that the current pain medication is helping To control the pain and improve activity of daily living . Patient denies any motor or sensory deficit, denies change in bowel movement or urination, patient denies any fever or night sweats and patient here for follow-up visit and medication refill, vision denies any side effects of the medication he denies any suicidal ideations. Objective - Vital Signs Vital signs: Vital Signs Temp Pulse 74 11/24/17 13:17 Resp 16 11/24/17 13:17 BP 116/77 11/24/17 13:17 Pulse Ox 96 11/24/17 13:17 Intake & Output 11/24/17 11/25/17 11/25/17 18:59 06:59 18:59 Weight 104.326 kg - Exam Physical Examinations : 1-Constitutiona : Cooperative , not in acute distress . 2-HEENT : nech ; supple , no Lymphadenopathy , normal thyroid size . eyes : no ptosis , no icterus, no photophobia . ENT : normal of hearing , normal oropharynx , no Thrush . 3- Respiratory : Chest clear to auscultations Bilaterally , no wheezing , no Rhonchi . 4- Cardiovascular : regular rate and rhythem , S1 , S2 , no S3 , no S4. 5- Gastrointestinal : abdomen soft no tenderness , bowel sounds , no organomegally . 6- Genitourinary : Defferred . 7- neurologic : Cranial nerve II to XII intact , no focal neurological deffecit . 8-psychatric : alert , oriented X 3 , appropriate affect , intact judgment and insight . 9-Lymphatic : no Lymphadenopathy . 10- musculoskeltal : cervical spine = motor stregnth in the deltoid and biceps, Lumber spine = normal moter stegnth lower extremities ,thigh and legs 4/5 deep tendon reflexes : normal Knee Jerk , normal ankle Jerk . lumber facet Loading Test positive strait leg raising test positive at 30 degree Right , positve at 30 degree Left Fabere test positive Right and positive Left Sever tenderness over the Sacroiliac joint on the Left side >right side Assessment and Plan Plan: Assessment and plan= - chronic low back pain secondary to lumbar spondylosis with lumbar facet arthropathy , sacroiliitis Patient had good results after the sacroiliac joint steroid injection x2 - chronic and current use of high-risk medication (opioids) Patient denies any side effects of the current pain medication and the current treatment/medication helping the patient to do activity of daily living , Diagnoses, prognosis, treatment options, including but not limited to physical therapy, medication management, interventional therapies, and surgery, were discussed with the patient Patient signed the narcotic agreement, and was orally counseled, not to overuse, not to abuse, not to Divert , not tp sell pain medication, and to take it as prescribed only, Patient was counseled not to drive or operate heavy equipment while using narcotic medication, and advised not to use alcohol or any Illicit drugs while using the narcotis, the patient's verbalized understanding that lack of compliance with any of the above instructions, will likely to cause discharge from, the pain service, not to renew his narcotic prescriptions Medication managements= patient will be given prescription refills for fentanyl patch 75 g every 72 hours dispense 10 with one refills, Percocet 10/ 325 every 6 hours dispense 120 with one refill, Lyrica 75 mg 3 times a day dispense 90 with 1 refill Patient had sacroiliac joint steroid injections 2 and he would be a good candidate to have radiofrequency ablation of the left side L5-S1 dorsal ramus, and radiofrequency ablation of the left side lateral branches S1/S2/S3 , PQRS Measure Charge Sheet Measure #130: Documentation of Current Meds in Medical Chart: Patient's medications documented in chart Measure #226: Tobacco Use: Screen & Cessation Intervention: Pt not a tobacco user Measure #111: Pneumonia Vaccination: Pneumococcal vaccine NOT administered or previously given Measure #47: Advance Care Plan: Advance care planning discussed & documented, plan or surrogate given Measure #412: Opioid Treatment Agreement: Documented signed opioid trtmnt agreemnt min once during opioid trtmnt Measure #408: Opioid Therapy Follow-up Evaluation: Patient had f/u eval minimum every 3 months during opioid therapy Measure #317: Preventitive Care & Scrn High Bld Press & F/U: Normal blood pressure, f/u not required Measure #128: Body Mass Index (BMI) Screening & Follow-up: BMI documented ABOVE normal parameters - f/u documented Measure #131: Pain Assessment & Follow-up: Pain positive & plan documented, Follow-up scheduled Measure #431: Unhealthy Alcohol Use Preventative Care & Scrn: Patient identified as unhealthy alcohol user; counseling given PQRS Narrative: Smoking Status Never smoker Do You Want the Pneumonia No Vaccine AT THIS TIME? Narcotic Agreement Date Signed 08/17/16 Blood Pressure 116/77 Pain Intensity [Left Lower 6 Back] Scale Used Numeric (1 - 10) Hx Alcohol Use (MH) No Home Medications: Ambulatory Orders Atenolol [Tenormin] 25 mg PO DAILY 01/07/14 Furosemide [Lasix] 20 mg PO BID 09/20/14 Ascorbic Acid [Vitamin C] 500 mg PO BID 08/25/15 Cholecalciferol [Vitamin D3] 20,000 unit PO DAILY 08/25/15 Cyanocobalamin (Vitamin B-12) [Vitamin B-12] 3,000 mcg PO DAILY 06/02/16 Melatonin 10 mg PO HS 08/17/16 Baclofen [Lioresal] 10 mg PO TID #270 tablet 09/01/17 DULoxetine HCL [Cymbalta] 60 mg PO HS 09/01/17 QUEtiapine [SEROquel] 50 mg PO HS 09/20/17 traZODone HCL [Desyrel] 300 mg PO HS 09/20/17 Naloxegol Oxalate [Movantik] 25 mg PO DAILY 10/17/17 Pregabalin [Lyrica] 75 mg PO TID #90 cap 11/24/17 fentaNYL 75MCG/HR PATCH [Duragesic 75MCG/HR] 1 patch TRANSDERM Q72H #10 patch fentaNYL 75MCG/HR PATCH [Duragesic 75MCG/HR] 75 mcg TRANSDERM Q72H #10 patch 05/04 oxyCODONE HCL/ACETAMINOPHEN [Percocet 10-325 mg] 1 tab PO Q6HR PRN #120 tab 05/04 oxyCODONE HCL/ACETAMINOPHEN [Percocet 10-325 mg] 1 tab PO Q6HR PRN #120 tab 05/04 Controlled Substance Measures - Controlled Substance Measures Is patient prescribed a controlled substance at discharge?: Yes If prescribed controlled substance>3 days was MAPS reviewed?: Yes When asked, does pt state using other controlled substances?: No
== END | disposition home or self-care (01) ==
LOC: PNWHC3 13:04
PROVIDERS: ATTEND Specialist
DX: G89.29 Other chronic pain (principal); M47.816 Spondylosis without myelopathy or radiculopathy, lumbar region; M46.96 Unspecified inflammatory spondylopathy, lumbar region; M46.1 Sacroiliitis, not elsewhere classified; Z79.899 Other long term (current) drug therapy; Z79.891 Long term (current) use of opiate analgesic
CPT/HCPCS: 99211

== ENCOUNTER 2017-12-21 08:51 | Day surgery (SDC) | payer BC ==
[2017-12-20 10:39] VITALS: BMI 33.0
[2017-12-21 09:15] VITALS: TEMP 98
[2017-12-21] MEDS ORDERED: LACTATED RINGERS 1,000 ML IV ONE (09:32)
[2017-12-21] MEDS ORDERED: LIDOCAINE 1% 20 ML VIAL (10MG/ML) FOR IV START INTRADERMA ONE (09:32)
[2017-12-21] MEDS ORDERED: LACTATED RINGERS 1,000 ML IV SCH (10:00)
[2017-12-21] MEDS ORDERED: KETOROLAC 30 MG/ML 1 ML VIAL IVP STA (10:15)
[2017-12-21] MEDS ORDERED: IV FLUID CONTINUATION 1,000 ML IV ONE (10:24)
--- NOTE | 2017-12-21 10:25 | P.PCN ---
Date of Procedure: 12/21/17 Surgeon: Leonardo Perkins Pathology: none sent Condition: stable Disposition: PACU Description of Procedure: PREOPERATIVE DIAGNOSIS: Sacroiliitis; lumbar spondylosis without myelopathy POSTOPERATIVE DIAGNOSIS: Sacroiliitis; lumbar spondylosis without myelopathy PROCEDURE: Radiofrequency thermocoagulation/ablation of the Medial branch of L5 and S1, S2, S3 lateral branch levels under fluoroscopic guidance, left side ANESTHESIA: Local with 1% lidocaine; IV sedation with Versed/fentanyl EBL: Minimal PROCEDURE INDICATION: The patient with low back pain secondary to sacroiliitis with marked decrease in pain with prior sacroiliac joint injections. No use of blood thinners. PROCEDURE DESCRIPTION: The patient was seen and identified in the preoperative area. Risks, benefits, complications, and alternatives were discussed with the patient, with risks including but not limited to bleeding, infection, nerve damage, incomplete pain relief, and allergic reactions to medications. The patient agreed to proceed with the procedure and signed the informed consent after all questions were answered. IV was started. Vital signs were stable throughout the procedure. Patient was taken to the OR and time out was completed.The patient was placed in the prone position on procedure table and a pillow was placed under the abdomen to reduce lumbar lordosis. The lumbosacral area was prepped and draped in the usual sterile fashion. Critical pause was taken. Vital signs were closely monitored during the procedure. L5 Medial Branch: Using left oblique fluoroscopy, the junction of the transverse process and the superior articular process of the top of the sacrum on the right side, which correspond to the fluoroscopic image of the "eye of the Isaías dog" was identified. Skin and deeper tissues were localized with 1% lidocaine at the identified level. Then using fluoroscopy, a 10-cm 20-gauge radiofrequency cannula with a 10-mm active tip was was advanced under fluoroscopic guidance until contact was made with periosteum. At this level, the Sensory testing of L5 Medial branch was performed at 50 Hz and 0 to 1 volt with production of concordant pain. Motor stimulation was done at 2 Hz with stimulation of multifidus muscle contraction at (0.1-2.5) volts. No radicular symptoms or paresthesias were produced during the testing. Subsequently, the L5 medial branch was subjected to a radiofrequency ablation at a mode of 90 seconds at 80 degrees Celsius after negative motor and sensory testing as indicated and after injecting 0.5 ml of preservative free Lidocaine 1%. Then after the radiofrequency procedure was done, 1 mL of a solution containing 4 mL of 0.5% preservative-free lidocaine mixed with 40 mg of Kenalog. S1, S2, and S3 Medial branches: Using the oblique position, the left sacroiliac joint was identified. Skin and deeper tissues corresponding to the site were anesthetized with 1% lidocaine. Under fluoroscopic guidance, a total of three 10-cm 18-gauge radiofrequency cannula with 10-mm active tips were advanced to the lateral aspects of the S1, S2, and S3 vertebral foramina. Subsequently, sensory and motor testings were performed at a total of 3 segments at 50 Hz and 2 Hz respectively which produced concordant pain without radiculopathy or paresthesia. Then each segment was subjected to radiofrequency ablation at a mode of 90 seconds at 80 degrees Celsius for a total of 3 lesions with the bipolar technique. Then after the radiofrequency procedure was done, each site was injected with 1 mL of the aforementioned solution containing 4 mL of 1% preservative-free lidocaine mixed with 40 mg of Kenalog. The needles were withdrawn. Area was cleaned. Band-Aid was applied. COMPLICATIONS: None. COMMENTS: DISPOSITION / PLANS: The patient was placed in a supine position and transferred to the recovery area in a stable condition for observation and was discharged from the recovery room after meeting discharge criteria. Home discharge instructions given to the patient by the staff. The patient was reexamined prior to discharge and there were no issues. Patient was also given a prescription for baclofen 10 mg TID #90 with one refill. Patient will follow- up for re-eval in clinic in 4-6 weeks.
[2017-12-21 10:28] VITALS: RESP 16
[2017-12-21] MEDS ORDERED: KETOROLAC 30 MG/ML 1 ML VIAL IVP ONE (10:30)
[2017-12-21 10:46] VITALS: BP 99/50; PULSE 51
--- NOTE | 2017-12-21 10:53 | FL ---
EXAMINATION TYPE: FL guided pain mgmt statistic DATE OF EXAM: 12/21/2017 HISTORY: Pain rad freq epi lt si. dr river. 5 sec fluoro 3 images saved
== END 2017-12-21 11:05 | disposition home or self-care (01) ==
LOC: ORPAIN 08:51
PROVIDERS: ATTEND Anesthesiology
DX: G89.29 Other chronic pain (principal); M46.1 Sacroiliitis, not elsewhere classified; I10 Essential (primary) hypertension; M51.36 Other intervertebral disc degeneration, lumbar region; Z98.84 Bariatric surgery status; M47.816 Spondylosis without myelopathy or radiculopathy, lumbar region; Z79.891 Long term (current) use of opiate analgesic; Z79.899 Other long term (current) drug therapy
CPT/HCPCS: 64640 ×3; 64635; J2250; J3301; J3010; J1885; 99152

== ENCOUNTER → 2018-01-19 | Outpatient (CLI) | payer BC ==
[2018-01-19 12:15] VITALS: BP 120/81; PULSE 73; RESP 18
--- NOTE | 2018-01-19 13:05 | P.PAINPG ---
Subjective Progress Note Date: 01/19/18 Principal diagnosis: Left sacroiliac pain, left myofascial pain This is a pleasant 52 year old gentleman with a history of substantial left- sided low back and buttock pain. He is recently undergone a left-sided sacroiliac radio frequency ablation. He reports that this does help his pain somewhat. He still has significant pain in the area. He is taking his pain medicines as prescribed and reports minimal side effects from them. He does walk with a cane. He denies bowel or bladder dysfunction. Objective - Vital Signs Vital signs: Vital Signs Temp Pulse 73 01/19/18 12:07 Resp 18 01/19/18 12:07 BP 120/81 01/19/18 12:07 Pulse Ox 98 01/19/18 12:07 Intake & Output 01/18/18 01/19/18 01/19/18 18:59 06:59 18:59 Weight 104.326 kg - Exam General: The patient is alert and oriented. Patient is not sedateded Patient answers all question appropriately. Cardiac: Heart is regular in rate and rhythm Respiratory: Clear to auscultation. No audible wheezes. Abdomen: Soft nontender nondistended. Lower extremities: Strength is normal bilaterally. Sensation is normal bilaterally. Reflexes are preserved and symmetric bilaterally. Straight leg raise is negative bilaterally. The patient is very sensitive to palpation over his left sacroiliac joint. Sacroiliac joint stressing maneuvers are floridly positive. Palpation over his lumbar facets is negative. Reflexes are blunted but symmetric at the Achilles and patella bilaterally. Assessment and Plan (1) Myofascial pain dysfunction syndrome Narrative/Plan: Plan of Care 1. Medications: I will refill the patient's medications today. He did sign the [place] start talking form today. I have reviewed the patient's MAPS report and it reveals expected results. Patient has signed an opiate agreement as well as opiate consent for treatment in our clinic. They understand the risks and benefits of opiate medications. They are aware of the potential for addiction. 2. Interventions: No interventions are indicated this time. 3. Referrals: I did refer the patient to physical therapy. 4. Testing: No testing was ordered today. The patient feels receive any benefit from physical therapy I would recommend ordering a CAT scan with SPECT to evaluate for the possibility of occult fracture 5. Psychological: Patient denies any significant depression or anxiety today. Current Visit: Yes Status: Acute Code(s): M79.1 - MYALGIA SNOMED Code(s): 984698662 (2) Sacroiliac joint dysfunction of left side Current Visit: No Status: Acute Code(s): M53.3 - SACROCOCCYGEAL DISORDERS, NOT ELSEWHERE CLASSIFIED SNOMED Code(s): 832334840 PQRS Measure Charge Sheet Measure #130: Documentation of Current Meds in Medical Chart: Patient's medications documented in chart Measure #226: Tobacco Use: Screen & Cessation Intervention: Pt not a tobacco user Measure #111: Pneumonia Vaccination: Pneumococcal vaccine NOT administered or previously given Measure #47: Advance Care Plan: Advance care planning discussed & documented, pt chose/unable to give Measure #412: Opioid Treatment Agreement: Documented signed opioid trtmnt agreemnt min once during opioid trtmnt Measure #408: Opioid Therapy Follow-up Evaluation: Patient had f/u eval minimum every 3 months during opioid therapy Measure #317: Preventitive Care & Scrn High Bld Press & F/U: Normal blood pressure, f/u not required Measure #128: Body Mass Index (BMI) Screening & Follow-up: BMI documented within normal parameters Measure #131: Pain Assessment & Follow-up: Pain positive & plan documented Measure #431: Unhealthy Alcohol Use Preventative Care & Scrn: Patient identified as unhealthy alcohol user; counseling given PQRS Narrative: Smoking Status Never smoker Do You Want the Pneumonia No Vaccine AT THIS TIME? Narcotic Agreement Date Signed 08/17/16 Blood Pressure 120/81 Pain Intensity [Left Hip] 8 Scale Used Numeric (1 - 10) Hx Alcohol Use (MH) No Home Medications: Ambulatory Orders Atenolol [Tenormin] 25 mg PO DAILY 01/07/14 Furosemide [Lasix] 20 mg PO BID 09/20/14 Ascorbic Acid [Vitamin C] 500 mg PO BID 08/25/15 Cholecalciferol [Vitamin D3] 20,000 unit PO DAILY 08/25/15 Cyanocobalamin (Vitamin B-12) [Vitamin B-12] 3,000 mcg PO DAILY 06/02/16 Melatonin 10 mg PO HS 08/17/16 Baclofen [Lioresal] 10 mg PO TID #270 tablet 09/01/17 DULoxetine HCL [Cymbalta] 60 mg PO HS 09/01/17 QUEtiapine [SEROquel] 50 mg PO HS 09/20/17 traZODone HCL [Desyrel] 300 mg PO HS 09/20/17 Naloxegol Oxalate [Movantik] 25 mg PO DAILY 10/17/17 Pregabalin [Lyrica] 75 mg PO TID #90 cap 11/24/17 fentaNYL 75MCG/HR PATCH [Duragesic 75MCG/HR] 1 patch TRANSDERM Q72H #10 patch oxyCODONE HCL/ACETAMINOPHEN [Percocet 10-325 mg] 1 tab PO Q6HR PRN #120 tab 05/04 Controlled Substance Measures - Controlled Substance Measures Is patient prescribed a controlled substance at discharge?: Yes When asked, does pt state using other controlled substances?: No If Rx opioid, was Start Talking consent form obtained?: Yes Was information provided regarding opioid addiction?: Yes
== END | disposition home or self-care (01) ==
LOC: PNWHC3 11:52
PROVIDERS: ATTEND Pain Medicine Pain Medicine
DX: M79.1 Myalgia (principal); M53.3 Sacrococcygeal disorders, not elsewhere classified; Z79.899 Other long term (current) drug therapy
CPT/HCPCS: 99211

== ENCOUNTER → 2018-03-16 | Outpatient (CLI) | payer BC ==
[2018-03-16 13:05] VITALS: BP 147/85; PULSE 60; RESP 16
--- NOTE | 2018-03-16 13:55 | P.PAINPG ---
Subjective Progress Note Date: 03/16/18 This is follow-up visit for this patient with a history of severe and chronic low back pain secondary to lumbar degenerative disc disease, and sacroiliitis We have done an interventional pain procedure sacroiliac joint steroid injection , and later on did radiofrequency ablation of the left sacroiliac joint, he continued to have severe low back pain The patient currently on fentanyl patch 75 g every 72 hours, Lyrica 75 mg 3 times a day, baclofen 10 mg 3 times a day, Percocet 10/325 every 6 hours Patient denies any side effect of the medication , patient denies any excessive drowsiness or sleepiness, patient denies any suicidal ideation, Patient reported that the current medication is helping to control the pain and improve the activity of daily livings, Patient denies any motor or sensory deficit, denies any change in the bowel movement or urination, patient denies any fever or night sweats. Patient here today for follow-up visit and medication refill , last visit patient was referred to have aquatic therapy, but he couldn't do it , because he lives in [place] , and they don't have aquatic physical therapy . Objective - Vital Signs Vital signs: Vital Signs Temp Pulse 60 03/16/18 12:57 Resp 16 03/16/18 12:57 BP 147/85 03/16/18 12:57 Pulse Ox 97 03/16/18 12:57 Intake & Output 03/15/18 03/16/18 03/16/18 18:59 06:59 18:59 Weight 102.058 kg - Exam Physical Examinations : 1-Constitutiona : Cooperative , not in acute distress . 2-HEENT : nech ; supple , no Lymphadenopathy , normal thyroid size . eyes : no ptosis , no icterus , no photophobia . ENT : normal of hearing , normal oropharynx , no Thrush . 3- Respiratory : Chest clear to auscultations Bilaterally , no wheezing , no Rhonchi . 4- Cardiovascular : regular rate and rhythem , S1 , S2 , no S3 , no S4. 5- Gastrointestinal : abdomen soft no tenderness , bowel sounds , no organomegally . 6- Genitourinary : Defferred . 7- neurologic : Cranial nerve II to XII intact , no focal neurological deffecit . 8-psychatric : alert , oriented X 3 , appropriate affect , intact judgment and insight . 9-Lymphatic : no Lymphadenopathy . 10- musculoskeltal : Lumber spine moter stegnth lower extremities ,thigh and legs 5/5 Right side , 5/5 Left side deep tendon reflexes : normal Knee Jerk , normal ankle Jerk positive lumber facet Loading Test Range of motion of the lumbar spine Flexion 30 degrees, extension 10 degrees strait leg raising test , positive at degree Fabere test positive RT and positive LT . Sever tenderness over the Sacroiliac joint on the R and L sides Assessment and Plan Plan: Assessment and plan= chronic low back pain secondary to lumbar degenerative disc diseases , sacroiliitis . Patient continued to have severe low back pain ,after interventional pain management, patient was seen by orthopedics spine surgeon Dr. Thorne and he did not recommend surgical intervention chronic and current use of high-risk medication (opioids) Patient denies any side effects of the current pain medication and the current treatment/medication helping the patient to do activity of daily living , Diagnoses, prognosis, treatment options, including but not limited to physical therapy, medication management, interventional therapies, and surgery, were discussed with the patient All the questions answered The narcotic consent was signed and patient agreed and understood the side effects and complications of opioid treatment. Patient signed the narcotic agreement, and was orally counseled, not to overuse, not to abuse, not to Divert , not tp sell pain medication, and to take it as prescribed only, Patient was counseled not to drive or operate heavy equipment while using narcotic medication, and advised not to use alcohol or any Illicit drugs while using the narcotis, the patient's verbalized understanding that lack of compliance with any of the above instructions, will likely to cause discharge from, the pain service, not to renew his narcotic prescriptions Medication managements= patient will be given prescription refills for Percocet 10/325 every 6 hours dispense 120 with one refill, fentanyl patch 75 g every 72 hours dispense 10 with 1.,refile, baclofen 10 mg 3 times a day dispense 270, Lyrica 75 mg 3 times a day dispensed 70 MAPS reviewed and it was appropriate, patient signed narcotic agreement, opioid risk and benefits discussed with the patient and patient understood. Discussed with the patient the option of referring him for Suboxone treatment , and he will think about this option. Patient will follow up with the pain clinic in 2 months , Time with Patient: Less than 30 PQRS Measure Charge Sheet Measure #130: Documentation of Current Meds in Medical Chart: Patient's medications documented in chart Measure #226: Tobacco Use: Screen & Cessation Intervention: Pt not a tobacco user Measure #111: Pneumonia Vaccination: Pneumococcal vaccine NOT administered or previously given Measure #47: Advance Care Plan: Advance care planning discussed & documented, pt chose/unable to give Measure #412: Opioid Treatment Agreement: Documented signed opioid trtmnt agreemnt min once during opioid trtmnt Measure #408: Opioid Therapy Follow-up Evaluation: Patient had f/u eval minimum every 3 months during opioid therapy Measure #317: Preventitive Care & Scrn High Bld Press & F/U: Pre-hypertensive or hypertensive BP documented, pt will f/u with PCP Measure #128: Body Mass Index (BMI) Screening & Follow-up: BMI documented ABOVE normal parameters - f/u documented Measure #131: Pain Assessment & Follow-up: Pain positive & plan documented, Follow-up scheduled Measure #431: Unhealthy Alcohol Use Preventative Care & Scrn: Patient not identified as an unhealthy alcohol user PQRS Narrative: Smoking Status Never smoker Do You Want the Pneumonia No Vaccine AT THIS TIME? Narcotic Agreement Date Signed 08/17/16 Blood Pressure 147/85 Pain Intensity [Bilateral 7 Lower Back] Scale Used Numeric (1 - 10) Hx Alcohol Use (MH) No Home Medications: Ambulatory Orders Atenolol [Tenormin] 25 mg PO DAILY 01/07/14 Furosemide [Lasix] 20 mg PO BID 09/20/14 Ascorbic Acid [Vitamin C] 500 mg PO BID 08/25/15 Cholecalciferol [Vitamin D3] 20,000 unit PO DAILY 08/25/15 Cyanocobalamin (Vitamin B-12) [Vitamin B-12] 3,000 mcg PO DAILY 06/02/16 Melatonin 10 mg PO HS 08/17/16 DULoxetine HCL [Cymbalta] 60 mg PO HS 09/01/17 QUEtiapine [SEROquel] 50 mg PO HS 09/20/17 traZODone HCL [Desyrel] 300 mg PO HS 09/20/17 Naloxegol Oxalate [Movantik] 25 mg PO DAILY 10/17/17 Baclofen [Lioresal] 10 mg PO TID #270 tablet 03/16/18 Pregabalin [Lyrica] 75 mg PO TID #270 cap 03/16/18 fentaNYL 75MCG/HR PATCH [Duragesic 75MCG/HR] 1 patch TRANSDERM Q72H #10 patch fentaNYL 75MCG/HR PATCH [Duragesic 75MCG/HR] 75 mcg TRANSDERM Q72H 30 Days #10 patch 03/16/18 oxyCODONE HCL/ACETAMINOPHEN [Percocet 10-325 mg] 1 tab PO Q6HR PRN #120 tab oxyCODONE HCL/ACETAMINOPHEN [Percocet 10-325 mg] 1 tab PO Q6HR PRN 30 Days #120 tab 03/16/18 Controlled Substance Measures - Controlled Substance Measures Is patient prescribed a controlled substance at discharge?: Yes When asked, does pt state using other controlled substances?: No If prescribed controlled substance>3 days was MAPS reviewed?: Yes If Rx opioid, was Start Talking consent form obtained?: Yes If opioid is for acute pain is fill amount 7 days or less?: No Was information provided regarding opioid addiction?: Yes
== END | disposition home or self-care (01) ==
LOC: PNWHC3 12:45
PROVIDERS: ATTEND Specialist
DX: G89.29 Other chronic pain (principal); M51.36 Other intervertebral disc degeneration, lumbar region; M46.1 Sacroiliitis, not elsewhere classified; Z79.899 Other long term (current) drug therapy
CPT/HCPCS: 99211

== ENCOUNTER → 2018-05-11 | Outpatient (CLI) | payer BC ==
[2018-05-11 13:27] VITALS: BP 139/90; PULSE 78; RESP 18
--- NOTE | 2018-05-11 13:57 | P.PN ---
Subjective Progress Note Date: 05/11/18 Principal diagnosis: Lumbar degenerative disc disease Lumbar spondylosis without myelopathy Left sacroiliitis This is a 52-year-old gentleman with history of chronic lower back pain due to lumbar DDD, spondylosis, and sacroiliitis. The patient had notable injections in his back which gave him temporary relief of pain and his pain right now is controlled with oral opioids including Percocet 10 mg 4 times a day as needed for pain and transdermal fentanyl patch 75 mics an hour every 72 hours. The patient denies any side effects to these medications except for constipation which is treated with Movantik. The patient does not show any drug-seeking behavior and he denies any bowel or bladder dysfunction except for constipation mentioned above. Objective - Vital Signs Vital signs: Vital Signs Temp Pulse 78 05/11/18 13:18 Resp 18 05/11/18 13:18 BP 139/90 05/11/18 13:18 Pulse Ox 96 05/11/18 13:18 Intake & Output 05/10/18 05/11/18 05/11/18 18:59 06:59 18:59 Weight 104.326 kg - EENT Eyes: Present: PERRLA - Respiratory Respiratory: bilateral: CTA - Neurologic Neurologic: Present: CNII-XII intact - Musculoskeletal Musculoskeletal Comment(s): + tenderness around the left sacroiliac joint - Psychiatric Psychiatric: Present: A&O x's 3, appropriate affect, intact judgment & insight Assessment and Plan Plan: 52-year-old gentleman with chronic lower back pain that responded temporarily for interventional pain procedures. Continue the medications including fentanyl patch 75 mics an hour every 72 hours and Percocet 10 mg every 6 hours when necessary pain. Present to clinic in 3 months for reevaluation
== END | disposition home or self-care (01) ==
LOC: PNWHC3 12:40
PROVIDERS: ATTEND Anesthesiology
DX: G89.29 Other chronic pain (principal); M54.5 Low back pain; Z79.891 Long term (current) use of opiate analgesic
CPT/HCPCS: 99211

== ENCOUNTER → 2018-08-03 | Outpatient (CLI) | payer BC ==
[2018-08-03 12:31] VITALS: BP 134/84; PULSE 74; RESP 16
--- NOTE | 2018-08-03 15:01 | P.PN ---
Subjective Progress Note Date: 08/03/18 This is follow-up visit for this patient with a history of severe and chronic low back pain secondary to lumbar degenerative disc disease, and sacroiliitis We have done an interventional pain procedure sacroiliac joint steroid injection , and later on did radiofrequency ablation of the left sacroiliac joint, he continued to have severe low back pain The patient currently on fentanyl patch 75 g every 72 hours, Lyrica 100 mg 3 times a day, baclofen 10 mg 3 times a day, Percocet 10/325 every 6 hours Patient denies any side effect of the medication , patient denies any excessive drowsiness or sleepiness, patient denies any suicidal ideation, Patient reported that the current medication is helping to control the pain and improve the activity of daily livings, Patient denies any motor or sensory deficit, denies any change in the bowel movement or urination, patient denies any fever or night sweats. Patient here today for follow-up visit and medication refill , last visit patient was referred to have aquatic therapy, but he couldn't do it , because he lives in [place] , and they don't have aquatic physical therapy . Physical Examinations : 1-Constitutiona : Cooperative , not in acute distress . 2-HEENT : nech ; supple , no Lymphadenopathy , normal thyroid size . eyes : no ptosis , no icterus , no photophobia . ENT : normal of hearing , normal oropharynx , no Thrush . 3- Respiratory : Chest clear to auscultations Bilaterally , no wheezing , no Rhonchi . 4- Cardiovascular : regular rate and rhythem , S1 , S2 , no S3 , no S4. 5- Gastrointestinal : abdomen soft no tenderness , bowel sounds , no organomegally . 6- Genitourinary : Defferred . 7- neurologic : Cranial nerve II to XII intact , no focal neurological deffecit . 8-psychatric : alert , oriented X 3 , appropriate affect , intact judgment and insight . 9-Lymphatic : no Lymphadenopathy . 10- musculoskeltal : Lumber spine moter stegnth lower extremities ,thigh and legs 5/5 Right side , 5/5 Left side deep tendon reflexes : normal Knee Jerk , normal ankle Jerk positive lumber facet Loading Test Range of motion of the lumbar spine Flexion 30 degrees, extension 10 degrees strait leg raising test , positive at degree Fabere test positive RT and positive LT . Sever tenderness over the Sacroiliac joint on the R and L sides Assessment and plan= chronic low back pain secondary to lumbar degenerative disc diseases , sacroiliitis . Patient continued to have severe low back pain ,after interventional pain management, patient was seen by orthopedics spine surgeon Dr. Thorne and he did not recommend surgical intervention chronic and current use of high-risk medication (opioids) Patient denies any side effects of the current pain medication and the current treatment/medication helping the patient to do activity of daily living , Diagnoses, prognosis, treatment options, including but not limited to physical therapy, medication management, interventional therapies, and surgery, were discussed with the patient All the questions answered The narcotic consent was signed and patient agreed and understood the side effects and complications of opioid treatment. Patient signed the narcotic agreement, and was orally counseled, not to overuse, not to abuse, not to Divert , not tp sell pain medication, and to take it as prescribed only, Patient was counseled not to drive or operate heavy equipment while using narcotic medication, and advised not to use alcohol or any Illicit drugs while using the narcotis, the patient's verbalized understanding that lack of compliance with any of the above instructions, will likely to cause discharge from, the pain service, not to renew his narcotic prescriptions Medication managements= patient will be given prescription refills for Percocet 10/325 every 6 hours dispense 120 with one refill, fentanyl patch 75 g every 72 hours dispense 10 with 1.,refile, baclofen 10 mg 3 times a day dispense 270, Lyrica 100 mg 3 times a day dispensed 270 MAPS reviewed and it was appropriate, patient signed narcotic agreement, opioid risk and benefits discussed with the patient and patient understood. Discussed with the patient the option of referring him for Suboxone treatment , and he will think about this option. Patient will follow up with the pain clinic in 2 months , PQRS Measure Charge Sheet Measure #130: Documentation of Current Meds in Medical Chart: Patient's medications documented in chart Measure #226: Tobacco Use: Screen & Cessation Intervention: Pt not a tobacco user Measure #111: Pneumonia Vaccination: Pneumococcal vaccine NOT administered or previously given Measure #47: Advance Care Plan: Advance care planning discussed & documented, pt chose/unable to give Measure #412: Opioid Treatment Agreement: Documented signed opioid trtmnt agreemnt min once during opioid trtmnt Measure #408: Opioid Therapy Follow-up Evaluation: Patient had f/u eval minimum every 3 months during opioid therapy Measure #317: Preventitive Care & Scrn High Bld Press & F/U: normal BP documented, pt will f/u with PCP Measure #128: Body Mass Index (BMI) Screening & Follow-up: BMI documented ABOVE normal parameters - f/u documented Measure #131: Pain Assessment & Follow-up: Pain positive & plan documented, Follow-up scheduled Measure #431: Unhealthy Alcohol Use Preventative Care & Scrn: Patient not identified as an unhealthy alcohol user PQRS Narrative: - Controlled Substance Measures Is patient prescribed a controlled substance at discharge?: Yes When asked, does pt state using other controlled substances?: No If prescribed controlled substance>3 days was MAPS reviewed?: Yes If Rx opioid, was Start Talking consent form obtained?: Yes If opioid is for acute pain is fill amount 7 days or less?: No Was information provided regarding opioid addiction?: Yes Objective - Vital Signs Vital signs: Vital Signs Temp Pulse 74 08/03/18 12:26 Resp 16 08/03/18 12:26 BP 134/84 08/03/18 12:26 Pulse Ox 97 08/03/18 12:26 Intake & Output 08/02/18 08/03/18 08/03/18 18:59 06:59 18:59 Weight 104.326 kg
== END | disposition home or self-care (01) ==
LOC: PNWHC3 12:07
PROVIDERS: ATTEND Specialist
DX: G89.29 Other chronic pain (principal); M54.5 Low back pain; M51.36 Other intervertebral disc degeneration, lumbar region; M46.1 Sacroiliitis, not elsewhere classified; F11.20 Opioid dependence, uncomplicated; Z79.899 Other long term (current) drug therapy
CPT/HCPCS: 99211

== ENCOUNTER → 2018-09-28 | Outpatient (CLI) | payer BC ==
[2018-09-28 13:34] VITALS: BP 116/67; PULSE 62; RESP 16
--- NOTE | 2018-09-28 13:58 | P.PN ---
Subjective Progress Note Date: 09/28/18 This is a 52-year-old gentleman with history of chronic lower back pain with radiation to the left lower extremity with occasional numbness and tingling. The patient has been having a combination of interventional pain procedures and opioids to control his pain. Currently he takes Percocet 10 mg 4 times a day as needed for pain and fentanyl patch 75 mics an hour every 72 hours. He is also on baclofen and Lyrica. His pain has been getting worse lately. Today, pt denies new-onset weakness, bowel/bladder incontinence, or any other signs or symptoms of cauda equina syndrome. There are no signs of acute intoxication, and no indications of medication diversion or overuse. In addition to above, 13-point review of systems is also negative for chest pain, shortness of breath, changes in vision, changes in hearing, new onset weakness, abdominal pain, diarrhea, extreme fatigue, malaise, fever, skin changes, homicidal or suicidal ideation, or bowel or bladder incontinence. Vital Signs: Reviewed in EMR Gen: AAOx3, NAD HEENT: PERRLA,hearing grossly normal Pulm: resp unlabored,CTA Heart:S1,S2, No Mur Neck: supple, trachea midline Neuro exam of the lower extremities: Normal muscle strength in the lower extremities Straight leg raising test: Stas's test: Range of motion of the lumbar spine: Facet loading test: Tenderness in the paravertebral musculature: Positive tenderness in the lumbar paravertebral musculature more on the left side than the right side. Neuro: CN II-XII grossly intact, Imaging: Reviewed in EMR/chart Assessment: Morbid obesity Lumbar spondylosis without myelopathy Lumbar DDD Plan: 1. Explanation: Opioid and psychological risk scores were reviewed. Diagnoses, prognoses, and multiple treatment options including but not limited to physical therapy, interventional therapies, adjuvant medical therapies, narcotic medication therapies, and surgery were discussed with the patient and all questions were answered to the patient's satisfaction. 2. Opioid agreement: Signed with the patient and the patient is warned not to use opioids while driving or before driving and not to combine opioids with benzodiazepines or alcohol. 3. Counseling: The patient was counseled extensively on SMOKING CESSATION, BODY MASS INDEX, EXERCISE. Specifically, the patient was instructed regarding the importance of smoking cessation, obesity, and exercise in the context of both chronic pain and overall health. 4. Procedures: Scheduled for lumbar epidural steroid injection under fluoroscopic guidance at the L4 5 or L5-S1 level. 5. Consultations: None 6. Investigations: We will do UDS today 7. Medications: Decrease Percocet 10 mg to 3 times a day, increase baclofen to 4 times a day, continue Lyrica and fentanyl at 75 mics an hour every 72 hours. 8. Disposition: Return to the above-mentioned procedure as soon as possible and to our pain clinic in 2 months. 9. Maps were reviewed and were appropriate. PQRS measures: 1-Patient's medications are documented in the chart. 2-Tobacco use is negative, counseling given 3-Patient has not had a pneumococcal vaccine. 4-Advanced care planning discussed, patient unable to give 5-Opioid contract signed with the patient. 6-Pain positive, follow-up visit or procedure scheduled 7-Patient's blood pressure measured and documented within normal limits. 8-Patient's weight was measured, and body mass index ABOVE the normal limits, and counseling was done. Patient instructed to follow up with PCP. 9-Patient WAS NOT identified as an unhealthy alcohol user. Controlled Substance Measures Is patient prescribed a controlled substance at discharge?: Yes When asked, does pt state using other controlled substances?: No If prescribed controlled substance>3 days was MAPS reviewed?: Yes If Rx opioid, was Start Talking consent form obtained?: Yes If opioid is for acute pain is fill amount 7 days or less?: No Was information provided regarding opioid addiction?: Yes Objective - Vital Signs Vital signs: Vital Signs Temp Pulse 62 09/28/18 13:27 Resp 16 09/28/18 13:27 BP 116/67 09/28/18 13:27 Pulse Ox 95 09/28/18 13:27 Intake & Output 09/27/18 09/28/18 09/28/18 18:59 06:59 18:59 Weight 108.862 kg
== END | disposition home or self-care (01) ==
LOC: PNWHC3 13:17
PROVIDERS: ATTEND Anesthesiology
DX: G89.29 Other chronic pain (principal); M51.36 Other intervertebral disc degeneration, lumbar region; M47.816 Spondylosis without myelopathy or radiculopathy, lumbar region; E66.01 Morbid (severe) obesity due to excess calories; Z51.81 Encounter for therapeutic drug level monitoring; Z68.34 Body mass index [BMI] 34.0-34.9, adult
CPT/HCPCS: 80307; 99211; G0482

== ENCOUNTER 2018-10-26 06:52 | Day surgery (SDC) | payer BC ==
[2018-10-24 11:03] VITALS: BMI 33.0
[2018-10-26 07:23] VITALS: TEMP 98.5
[2018-10-26] MEDS ORDERED: LIDOCAINE 1% 20 ML VIAL (10MG/ML) FOR IV START INTRADERMA ONE (07:34)
[2018-10-26] MEDS: LACTATED RINGERS 1,000 ML IV SCH ×2 (07:34→08:24)
--- NOTE | 2018-10-26 08:39 | P.PCN ---
Date of Procedure: 10/26/18 Procedure(s) Performed: PREOPERATIVE DIAGNOSIS: 1- Lumbar Degenerative Disc Diseases 2-Lumbar spondylosis with Facet arthropathy without myelopathy POSTOPERATIVE DIAGNOSIS: 1-Lumber Degenerative Disc Diseases 2-Lumbar spondylosis with Facet arthropathy without myelopathy PROCEDURE 1. Lumbar epidural steroid injection under fluoroscopic guidance at the L5-S1 level. 2. Lumbar epidurogram. ANESTHESIA: Local with 1% lidocaine 3 ml and , moderate sedation with intravenous Versed 2 mg ,and fentanyle 100 Mcg EBL: Minimal PROCEDURE INDICATION: The patient with low back pain and radiculitis symptoms unresponsive to conservative treatment. Fluoroscopy was used to optimize visualization of the needle placement and to maximize safety. PROCEDURE DESCRIPTION / TECHNIQUE: The patient was seen and identified in the preoperative area. Risks, benefits, complications including but not limited to infections ,bleeding ,allergic reaction to the medications ,nerve damage and not complete pain releife , and alternatives were discussed with the patient. The patient agreed to proceed with the procedure and signed the consent. IV was started, and vital signs were stable. Patient was taken to the OR and time out was completed. The patient was placed in the prone position on procedure table and a pillow was placed under the abdomen to reduce lumbar lordosis. The lumbosacral area was prepped and draped in the usual sterile fashion.ere closely monitored during the procedure. Conscious sedation was used during the procedure to decrease patients anxiety. Vital signs was monitered during the entire procedure. Using anterior-posterior fluoroscopy, the L5-S1 interlaminar space was identified and the skin over this site was marked and then infiltrated with 1% lidocaine subcutaneously. Subsequently, a 20-gauge Tuohy epidural needle was inserted and advanced toward the epidural space using the ``Loss of resistance technique and guided by AP and lateral fluoroscopy. The correct needle position in the epidural space was verified with the injection of 2 mL of the water soluble contrast dye Isovue 200 contrast and observing an excellent epidurogram with the epidural spread of the dye, after negative aspiration for blood and CSF and in the absence of paresthesias. Again after negative aspiration, a 6 ml mixture containing 80 mg of Depo-medrol , and 2 ml of preservative free Normal Saline, and 2 ml of preservative free lidocaine 1% solution was injected and a washout of epidurogram was seen. Needle was withdrawn intact, skin was cleansed, and bandages were applied. COMPLICATIONS: None DISPOSITION / PLANS: The patient was placed in a supine position and transferred to the recovery area in a stable condition for observation. There was no evidence of lower extremity motor or sensory deficit after the procedure. Patient was discharged from the recovery room after meeting discharge criteria. Home discharge instructions were given to the patient by the staff. The patient was reexamined prior to discharge. The patient will schedule a follow up in the clinic in 2-4 weeks.
[2018-10-26 08:44] VITALS: PULSE 65; RESP 18
[2018-10-26] MEDS ORDERED: IV FLUID CONTINUATION 1,000 ML IV ONE (08:53)
[2018-10-26 08:59] VITALS: BP 115/78
--- NOTE | 2018-10-26 10:03 | FL ---
EXAMINATION TYPE: FL guided pain mgmt statistic DATE OF EXAM: 10/26/2018 HISTORY: Flouroscopy time 2 seconds of fluoroscopy provided. IMPRESSION: 1. Fluoroscopy time.
== END 2018-10-26 09:16 | disposition home or self-care (01) ==
LOC: ORPAIN 06:52
PROVIDERS: ATTEND Specialist
DX: M47.816 Spondylosis without myelopathy or radiculopathy, lumbar region (principal); M51.36 Other intervertebral disc degeneration, lumbar region; M46.1 Sacroiliitis, not elsewhere classified; I10 Essential (primary) hypertension
CPT/HCPCS: 62323; J2250; J1030; J3010; Q9966

== ENCOUNTER 2018-11-09 07:25 | Day surgery (SDC) | payer BC ==
[2018-11-09] MEDS ORDERED: LACTATED RINGERS 1,000 ML IV SCH (07:40)
[2018-11-09 07:51] VITALS: RESP 16; TEMP 98.6
[2018-11-09] MEDS ORDERED: LIDOCAINE 1% 20 ML VIAL (10MG/ML) FOR IV START INTRADERMA ONE (07:55)
[2018-11-09] MEDS ORDERED: LACTATED RINGERS 1,000 ML IV ONE (07:55)
--- NOTE | 2018-11-09 08:59 | P.PCN ---
Date of Procedure: 11/09/18 Procedure(s) Performed: PREOPERATIVE DIAGNOSIS: 1- Lumbar Degenerative Disc Diseases 2-Lumbar spondylosis with Facet arthropathy without myelopathy POSTOPERATIVE DIAGNOSIS: 1-Lumber Degenerative Disc Diseases 2-Lumbar spondylosis with Facet arthropathy without myelopathy PROCEDURE 1. Lumbar epidural steroid injection under fluoroscopic guidance at the L5-S1 level. 2. Lumbar epidurogram. ANESTHESIA: Local with 1% lidocaine 3 ml and , moderate sedation with intravenous Versed 2 mg ,and fentanyle 100 Mcg EBL: Minimal PROCEDURE INDICATION: The patient with low back pain and radiculitis symptoms unresponsive to conservative treatment. Fluoroscopy was used to optimize vis ualization of the needle placement and to maximize safety. PROCEDURE DESCRIPTION / TECHNIQUE: The patient was seen and identified in the preoperative area. Risks, benefits, complications including but not limited to infections ,bleeding ,allergic reaction to the medications ,nerve damage and not complete pain releife , and alternatives were discussed with the patient. The patient agreed to proceed with the procedure and signed the consent. IV was started, and vital signs were stable. Patient was taken to the OR and time out was completed. The patient was placed in the prone position on procedure table and a pillow was placed under the abdomen to reduce lumbar lordosis. The lumbosacral area was prepped and draped in the usual sterile fashion.ere closely monitored during the procedure. Conscious sedation was used during the procedure to decrease patients anxiety. Vital signs was monitered during the entire procedure. Using anterior-posterior fluoroscopy, the L5-S1 interlaminar space was identified and the skin over this site was marked and then infiltrated with 1% lidocaine subcutaneously. Subsequently, a 20-gauge Tuohy epidural needle was inserted and advanced toward the epidural space using the ``Loss of resistance technique and guided by AP and lateral fluoroscopy. The correct needle position in the epidural space was verified with the injection of 2 mL of the water soluble contrast dye Isovue 200 contrast and observing an excellent epidurogram with the epidural spread of the dye, after negative aspiration for blood and CSF and in the absence of paresthesias. Again after negative aspiration, a 6 ml mixture containing 80 mg of Depo-medrol , and 2 ml of preservative free Normal Saline, and 2 ml of preservative free lidocaine 1% solution was injected and a w ashout of epidurogram was seen. Needle was withdrawn intact, skin was cleansed, and bandages were applied. COMPLICATIONS: None DISPOSITION / PLANS: The patient was placed in a supine position and transferred to the recovery area in a stable condition for observation. There was no evidence of lower extremity motor or sensory deficit after the procedure. Patient was discharged from the recovery room after meeting discharge criteria. Home discharge instructions were given to the patient by the staff. The patient was reexamined prior to discharge. The patient will schedule a follow up in the clinic in 2-4 weeks.
[2018-11-09] MEDS ORDERED: IV FLUID CONTINUATION 1,000 ML IV ONE (09:05)
[2018-11-09 09:35] VITALS: BP 108/70; PULSE 78
--- NOTE | 2018-11-09 12:13 | FL ---
EXAMINATION TYPE: FL guided pain mgmt statistic DATE OF EXAM: 11/09/2018 FLUOROSCOPY Fluoroscopy time of 2 seconds was used during lumbar epidural steroid injection. 1 image/s document/ s the procedure.
== END 2018-11-09 09:37 | disposition home or self-care (01) ==
LOC: ORPAIN 07:25
PROVIDERS: ATTEND Specialist
DX: M51.36 Other intervertebral disc degeneration, lumbar region (principal); M47.816 Spondylosis without myelopathy or radiculopathy, lumbar region; I10 Essential (primary) hypertension
CPT/HCPCS: 62323; J2250; J1030; J3010; Q9966

== ENCOUNTER → 2018-11-23 | Outpatient (CLI) | payer BC ==
[2018-11-23 13:51] VITALS: BP 173/65; PULSE 84; RESP 18
--- NOTE | 2018-11-24 20:52 | P.PN ---
Subjective Progress Note Date: 11/23/18 This is follow-up visit for this patient with a history of severe and chronic low back pain secondary to lumbar degenerative disc disease ,ghassanley we have done lumbar epidural steroid injections 2 ,he continue to have severe low back pain , with radiation to the left buttock mainly The patient currently on fentanyl patch 75 g every 72 hours, Lyrica 100 mg 3 times a day, baclofen 10 mg 3 times a day, Percocet 10/325 every 6 hours, Patient denies any side effect of the medication , patient denies any excessive drowsiness or sleepiness, patient denies any suicidal ideation, Patient reported that the current medication is helping to control the pain and improve the activity of daily livings, Patient denies any motor or sensory deficit, denies any change in the bowel movement or urination, patient denies any fever or night sweats. Patient here today for follow-up visit and medication refill . Physical Examinations : -Constitutiona : Cooperative , not in acute distress . -HEENT : nech ; supple , no Lymphadenopathy , normal thyroid size . eyes : no ptosis , no icterus, no photophobia . ENT : normal of hearing , normal oropharynx , no Thrush . - Respiratory : Chest clear to auscultations Bilaterally , no wheezing , no Rhonchi . - Cardiovascula : regular rate and rhythem , S1 , S2 , no S3 , no S4. - Gastrointestina : abdomen soft no tenderness , bowel sounds , no organomegally . - Genitourinary : Defferred . - neurologic : Cranial nerve II to XII intact , no focal neurological deffecit . -psychatric : alert , oriented X 3 , appropriate affect , intact judgment and insight . -Lymphatic : no Lymphadenopathy . - musculoskeltal : Lumber spine moter stegnth lower extremities ,thigh and legs 5/5 Right side , 5/5 Left side deep tendon reflexes : normal Knee Jerk , normal ankle Jerk positive lumber facet Loading Test Range of motion of the lumbar spine Flexion 30 degrees, extension 10 degrees strait leg raising test , positive at 45 degree Fabere test positive RT and positive LT . Sever tenderness over the Sacroiliac joint on the Left sides Gaenslen test positive on the left side Seated flexion test positive on the left side Assessment and plan= chronic low back pain secondary to lumbar degenerative disc diseases ,left sacroiliitis . Patient continued to have severe low back pain with radiation into the left buttock area ,after lumbar epidural steroid injection x2 intervention chronic and current use of high-risk medication (opioids) Patient denies any side effects of the current pain medication and the current treatment/medication helping the patient to do activity of daily living , Diagnoses, prognosis, treatment options, including but not limited to physical therapy, medication management, interventional therapies, and surgery, were discussed with the patient All the questions answered The narcotic consent was signed and patient agreed and understood the side effects and complications of opioid treatment. Patient signed the narcotic agreement, and was orally counseled, not to overuse, not to abuse, not to Divert , not tp sell pain medication, and to take it as prescribed only, Patient was counseled not to drive or operate heavy equipment while using narcotic medication, and advised not to use alcohol or any Illicit drugs while using the narcotis, the patient's understanding that lack of compliance with any of the above instructions, will likely to cause discharge from, the pain service, not to renew his narcotic prescriptions Medication managements= patient will be given prescription refills for Percocet 10/325 every 6 hours dispense 120 with one refill, fentanyl patch 75 g every 72 hours dispense 10 with 1.,refile, baclofen 10 mg 3 times a day dispense 270, Lyrica 100 mg 3 times a day dispensed 270 MAPS reviewed and it was appropriate, patient signed narcotic agreement, opioid risk and benefits discussed with the patient and patient understood. Patient will follow up with the pain clinic in 2 months Patient will be scheduled to have left side sacroiliac joint steroid injections under fluoroscopy , PQRS Measure Charge Sheet Measure #130: Documentation of Current Meds in Medical Chart: Patient's medications documented in chart Measure #226: Tobacco Use: Screen & Cessation Intervention: Pt not a tobacco user Measure #111: Pneumonia Vaccination: Pneumococcal vaccine NOT administered or previously given Measure #47: Advance Care Plan: Advance care planning discussed & documented, pt chose/unable to give Measure #412: Opioid Treatment Agreement: Documented signed opioid trtmnt agreemnt min once during opioid trtmnt Measure #408: Opioid Therapy Follow-up Evaluation: Patient had f/u eval minimum every 3 months during opioid therapy Measure #317: Preventitive Care & Scrn High Bld Press & F/U: elevated BP documented, (145/103 ) pt will f/u with PCP Measure #128: Body Mass Index (BMI) Screening & Follow-up: BMI documented ABOVE normal parameters - f/u documented Measure #131: Pain Assessment & Follow-up: Pain positive & plan documented, Follow-up scheduled Measure #431: Unhealthy Alcohol Use Preventative Care & Scrn: Patient not iden tified as an unhealthy alcohol user PQRS Narrative: - Controlled Substance Measures Is patient prescribed a controlled substance at discharge?: Yes When asked, does pt state using other controlled substances?: No If prescribed controlled substance>3 days was MAPS reviewed?: Yes If Rx opioid, was Start Talking consent form obtained?: Yes If opioid is for acute pain is fill amount 7 days or less?: No Was information provided regarding opioid addiction?: Yes Objective - Vital Signs Vital signs: Vital Signs Temp Pulse 84 11/23/18 13:41 Resp 18 11/23/18 13:41 BP 173/65 11/23/18 13:41 Pulse Ox 97 11/23/18 13:41
== END | disposition home or self-care (01) ==
LOC: PNWHC3 13:21
PROVIDERS: ATTEND Specialist
DX: G89.29 Other chronic pain (principal); M51.36 Other intervertebral disc degeneration, lumbar region; M46.1 Sacroiliitis, not elsewhere classified; Z79.891 Long term (current) use of opiate analgesic
CPT/HCPCS: 99211

== ENCOUNTER 2018-12-06 09:01 | Day surgery (SDC) | payer BC ==
[2018-12-06 09:18] VITALS: RESP 16; TEMP 97.6
[2018-12-06] MEDS ORDERED: LACTATED RINGERS 1,000 ML IV ONE (09:23)
--- NOTE | 2018-12-06 09:43 | P.PCN ---
Date of Procedure: 12/06/18 Procedure(s) Performed: Procedure= left sacral iliac joints steroid injection under fluoroscopy guidance Preoperative diagnosis= 1-sacroiliitis 2-lumbar degenerative disc disease 3- lumbar spondylosis with facet arthropathy Postoperative diagnosis=1-sacroiliitis 2-lumbar degenerative disc disease 3- lumbar spondylosis with facet arthropathy Complication = none Condition= stable Anesthesia= moderate sedation with intravenous Versed 2 mg , and fentanyl 100 micrograms . Indication for the procedure= patient complaining of low back pain , examination was positive for severe tenderness over the left sacroiliac joints and patient diagnosed with sacroiliitis, for this reason he was good candidate for left sacroiliac joint steroid injection. Description of the procedure= procedure risk and benefits discussed with the patient, including but not limited, risk of infection and bleeding, and ALLERGIC reaction to the medication and not complete pain relief and patient agreed with the preceding patient taken to the operating room, placed in prone position or standard monitors applied to the patient then after induction of anesthesia back prepped with chlorhexidine 3 times , Then under strict sterile technique, first I did the left sacroiliac joint the which was identified under fluoroscopy guidance been local infiltration of the skin and subcu interstitial with lidocaine 1% then 22-gauge Quincke Needle advanced slowly under fluoroscopy and placed in the left sacroiliac joint needle placement confirmed with AP and oblique and lateral view and after appropriate needle placement confirmed and after negative aspiration, or heme , then Ropivacaine 0.5% 3 mL, and 40 mg of Depo-Medrol mixed together and injected in the left sacroiliac joint after negative aspiration patient tolerated the procedure well without any complication.
[2018-12-06] MEDS ORDERED: LACTATED RINGERS 900 ML IV ONE ×2 (09:45)
--- NOTE | 2018-12-06 09:49 | FL ---
Fluoroscopy HISTORY: Pain 5 seconds fluoroscopy time supplied to the referring clinician. 1 intraoperative C-arm images docume nt the procedure. See dictated report from anesthesia.
[2018-12-06 10:01] VITALS: BP 115/72; PULSE 59
== END 2018-12-06 10:15 | disposition home or self-care (01) ==
LOC: ORPAIN 09:01
PROVIDERS: ATTEND Specialist
DX: M46.1 Sacroiliitis, not elsewhere classified (principal); M51.36 Other intervertebral disc degeneration, lumbar region; M47.9 Spondylosis, unspecified
CPT/HCPCS: 27096; J2250; J1030; J3010

== ENCOUNTER → 2018-12-20 | Day surgery (SDC) | payer BC ==
[~2018-12-20] MED LIST changes: +IV FLUID CONTINUATION 650 ML IV ONE; +LACTATED RINGERS 1,000 ML IV ONE; -LACTATED RINGERS 1,000 ML IV SCH; +LIDOCAINE 1% 20 ML VIAL (10MG/ML) FOR IV START INTRADERMA ONE
[2018-12-20 09:52] VITALS: RESP 16; TEMP 97
--- NOTE | 2018-12-20 10:12 | P.PCN ---
Date of Procedure: 12/20/18 Description of Procedure: Procedure: Sacroiliac joint injection on the left Preoperative diagnosis: Sacroiliitis Postoperative diagnosis: Sacroiliitis Complications: none Anesthesia: 1% lidocaine 5cc 2 mg Versed 100 mics of fentanyl Description of the procedure: procedure risk and benefits discussed with the patient, including but not limited, risk of infection and bleeding, and allergic reaction to the medication and incomplete pain relief. Patient agreed and signed consent. Patient was taken to the room and placed in a prone position. Chlorhexidine was used to cleanse the skin. Under sterile conditions patient skin was anesthetized 1% lidocaine. Subcutaneous tissues were also anesthetized with a total 5 mL of 1% lidocaine. After that, a 22-gauge spinal needle was advanced through the anesthetized location under fluoroscopic guidance. Needle was advanced into the inferior portion of the sacroiliac joint. IV contrast was used to confirm spread within the joint. After adequate spread was achieved, 2.5 ML's of 0.5% ropivacaine with 40 mg of triamcinolone was injected into the joint. Patient tolerated the procedure well. Sent to the recovery room in stable condition. Patient will follow up for med refills in the clinic
[2018-12-20 10:51] VITALS: BP 107/70; PULSE 63
--- NOTE | 2018-12-20 11:19 | FL ---
EXAMINATION TYPE: FL guided pain mgmt statistic DATE OF EXAM: 12/20/2018 CLINICAL HISTORY: Left sacroiliac joint pain. TECHNIQUE: Fluoroscopy. COMPARISON: None. FINDINGS: Fluoroscopic guidance was provided during pain relief procedure performed by Dr. Back . A total of 3 seconds of fluoroscopic time was utilized during the procedure and single spot image i s acquired. Single image acquired shows needle localization at level of sacroiliac joint. IMPRESSION: As Above.
== END | disposition home or self-care (01) ==
LOC: ORPAIN 09:44
PROVIDERS: ATTEND Hospitalist
DX: M46.1 Sacroiliitis, not elsewhere classified (principal)
CPT/HCPCS: 27096; J2250; J1030; J3010

== ENCOUNTER → 2019-03-13 | Outpatient (CLI) | payer BC, OTHER ==
--- NOTE | 2019-03-13 16:23 | P.PAINPG ---
Subjective Progress Note Date: 03/13/19 Mr. Pimentel is a 53-year-old male on chronic opiates who presents for follow-up for medication refill. He reports no changes in his medical history. He denies any side effects from the medications. Otherwise he continues to complain of low back pain. She states that opiates to make him more functional. His constipation is treated by fiber. He denies diverting any of his medications. Objective - Vital Signs Vital signs: Intake & Output 03/12/19 03/13/19 03/13/19 18:59 06:59 18:59 Weight 86.183 kg - Exam Vital Signs: Reviewed in EMR GENERAL: Well appearing, in no acute distress, PSYCH: Mood and affect is appropriate. Awake, alert, and oriented SKIN: Skin color, texture, turgor normal, no rashes or lesions HEENT: Normocephalic, atraumatic. EOM intact CV: No pedal edema RESP: Respirations are unlabored, no audible wheezing GI: Abdomen non-distended MUSCULOSKELETAL: Bilateral upper and lower extremity strength is normal and symmetric. No atrophy or tone abnormalities are noted. Lumbar spine: Some tenderness to palpation, excellent range of motion. Buttocks: No pain to palpation over the PSIS, Jesus test is negative bilaterally Extremities: Peripheral joint ROM is full and pain free without obvious instability or laxity in all four extremities. No edema or skin discolorations noted. Gait: Gait is anantalgic NEUR: Bilateral upper and lower extremity coordination are physiologic and symmetric.No loss of sensation is noted. Cranial nerves are grossly intact. Assessment and Plan Assessment: Assessment: 1. Lumbar spondylosis 2. Chronic opioid use Plan: 1. Explanation: Opioid and psychological risk scores were reviewed. Diagnoses, prognoses, and multiple treatment options including but not limited to physical therapy, interventional therapies, adjuvant medical therapies, narcotic medication therapies, and surgery were discussed with the patient and all questions were answered to the patient's satisfaction. 2. Opioid agreement: In place 3. Counseling: The patient was advised to stay as active as possible. I did talk to him in depth about his opiate usage. He has tried to wean down in the past by himself, he however he was unable to. He is on board with slowly weaning his opiates. 4. Procedures: None at this time 5. Consultations: None 6. Investigations: None 7. Medications: Currently he is around 200 oral morphine equivalents. I discussed with him the CDC recommendation of not surpassing 90 oral morphine equivalents. Thus I will reduce his dose by 10 oral morphine equivalents. I will continue his fentayl patch at 75 mcg/hr. His percocet will be decreased from 10/325 QID to 7.5 TID. His lyrica and baclofen were also decreased. I would consider further weans of his opiates. 8. Disposition: 8 weeks for medication refill , PQRS Measure Charge Sheet Measure #130: Documentation of Current Meds in Medical Chart: Patient's medications documented in chart Measure #226: Tobacco Use: Screen & Cessation Intervention: Pt not a tobacco user Measure #111: Pneumonia Vaccination: Pneumococcal vaccine administered or previously received Measure #47: Advance Care Plan: Advance care planning discussed & documented, pt chose/unable to give Measure #408: Opioid Therapy Follow-up Evaluation: Patient had NO f/u eval minimum every 3 months during opioid therapy Measure #131: Pain Assessment & Follow-up: Pain positive & plan documented, Follow-up scheduled Measure #431: Unhealthy Alcohol Use Preventative Care & Scrn: Patient not identified as an unhealthy alcohol user PQRS Narrative: Smoking Status Never smoker Narcotic Agreement Date Signed 08/17/16 Pain Intensity [Left Lower 5 Back] Scale Used Numeric (1 - 10) Hx Alcohol Use (MH) No Home Medications: Ambulatory Orders Furosemide [Lasix] 20 mg PO BID 09/20/14 Ascorbic Acid [Vitamin C] 500 mg PO BID 08/25/15 Cholecalciferol [Vitamin D3] 20,000 unit PO DAILY 08/25/15 Cyanocobalamin (Vitamin B-12) [Vitamin B-12] 3,000 mcg PO DAILY 06/02/16 Melatonin 10 mg PO HS 08/17/16 DULoxetine HCL [Cymbalta] 60 mg PO HS 09/01/17 QUEtiapine [SEROquel] 50 mg PO HS 09/20/17 traZODone HCL [Desyrel] 300 mg PO HS 09/20/17 Naloxegol Oxalate [Movantik] 25 mg PO DAILY 10/17/17 Pregabalin [Lyrica] 75 mg PO TID #270 cap 03/16/18 Baclofen [Lioresal] 10 mg PO TID #270 tablet 01/17/19 Pregabalin [Lyrica] 100 mg PO TID 90 Days #270 cap 01/17/19 fentaNYL 75MCG/HR PATCH [Duragesic 75MCG/HR] 1 patch TRANSDERM Q72H 3 Days #10 patch 01/17/19 fentaNYL 75MCG/HR PATCH [Duragesic 75MCG/HR] 75 mcg TRANSDERM Q72H 30 Days #10 patch 01/17/19 oxyCODONE HCL/ACETAMINOPHEN [Percocet 10-325 mg] 1 tab PO Q6HR PRN #120 tab 01/17/19 oxyCODONE-APAP 10-325MG [Percocet 10-325 mg] 1 tab PO Q8HR PRN #120 tab 01/17/19 Controlled Substance Measures - Controlled Substance Measures Is patient prescribed a controlled substance at discharge?: Yes When asked, does pt state using other controlled substances?: No If prescribed controlled substance>3 days was MAPS reviewed?: Yes If Rx opioid, was Start Talking consent form obtained?: Yes If opioid is for acute pain is fill amount 7 days or less?: Yes Was information provided regarding opioid addiction?: Yes
== END | disposition home or self-care (01) ==
LOC: PNWHC3 14:24
PROVIDERS: ATTEND Student in an Organized Health Care Education/Training Program
DX: M47.816 Spondylosis without myelopathy or radiculopathy, lumbar region (principal); Z79.891 Long term (current) use of opiate analgesic; Z79.899 Other long term (current) drug therapy
CPT/HCPCS: 99211

== ENCOUNTER → 2019-03-26 | Outpatient (CLI) | payer BC ==
[2019-03-26 16:32] VITALS: BP 111/70; PULSE 73; TEMP 98.2; BMI 29.2
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
== END | disposition home or self-care (01) ==
LOC: BARWHC3 14:27
PROVIDERS: ATTEND Surgery
DX: Z46.51 Encounter for fitting and adjustment of gastric lap band (principal); L98.9 Disorder of the skin and subcutaneous tissue, unspecified
CPT/HCPCS: 99211

== ENCOUNTER → 2019-05-08 | Outpatient (CLI) | payer BC ==
[2019-05-08 13:14] VITALS: BP 116/66; PULSE 65; RESP 16
--- NOTE | 2019-05-09 10:46 | P.PAINPG ---
Subjective Progress Note Date: 05/08/19 This is follow-up visit for this patient with a history of severe and chronic low back pain secondary to lumbar degenerative disc disease. Lumbar spondylosis and sacroiliitis pain is controlled between interventional pain management and medication management, The patient currently on fentanyl patch 75 g every 72 hours, Lyrica 100 mg 3 times a day, baclofen 10 mg 3 times a day, Percocet 7.5/325 every 6 hours, Patient denies any side effect of the medication , patient denies any excessive drowsiness or sleepiness, patient denies any suicidal ideation, Patient reported that the current medication is helping to control the pain and improve the activity of daily livings. Patient here today for follow-up visit and medication refill . Objective - Vital Signs Vital signs: Vital Signs Temp Pulse 65 05/08/19 13:07 Resp 16 05/08/19 13:07 BP 116/66 05/08/19 13:07 Pulse Ox 99 05/08/19 13:07 Intake & Output 05/08/19 05/09/19 05/09/19 18:59 06:59 18:59 Weight 79.832 kg - Exam -Constitutiona : Cooperative , not in acute distress . -HEENT : neck ; supple , eyes : no ptosis , no icterus, no photophobia . ENT : normal of hearing - Respiratory : no audible wheezing . - Cardiovascular : No pedal edema - Gastrointestinal : abdomen nondistended. - Genitourinary : Deferred . - neurologic : Cranial nerve II to XII intact , no focal neurological defecit . -psychatric : alert , oriented X 3 , appropriate affect , intact judgment and insight . - musculoskeltal : Lumbar spine motor stegnth lower extremities ,thigh and legs 5/5 Right side , 5/5 Left side deep tendon reflexes : normal Knee Jerk , normal ankle Jerk positive lumber facet Loading Test bilaterally Range of motion of the lumbar spine Flexion 30 degrees, extension 10 degrees Jesus test positive LT . Sever tenderness over the Sacroiliac joint on the Left sides Assessment and Plan Plan: Assessment and plan= chronic low back pain secondary to , lumbar spondylosis with lumbar facet arthropathy . Sacroiliitis chronic and current use of high-risk medication (opioids) Patient denies any side effects of the current pain medication and the current treatment/medication helping the patient to do activity of daily living , Diagnoses, prognosis, treatment options, including but not limited to physical therapy, medication management, interventional therapies, and surgery, were discussed with the patient All the questions answered The narcotic consent was signed and patient agreed and understood the side effects and complications of opioid treatment. Patient signed the narcotic agreement, and was orally counseled, not to overuse, not to abuse, not to Divert , not tp sell pain medication, and to take it as prescribed only, Patient was counseled not to drive or operate heavy equipment while using narcotic medication, and advised not to use alcohol or any Illicit drugs while using the narcotis. understanding that lack of compliance with any of the above instructions, will likely to cause discharge from, the pain service, not to renew his narcotic prescriptions MAPS Reviwed and it was apropriate . Medication managements= patient will be given prescription refills for fentanyl patch 75 g every 72 hours dispense 10 with one refill Percocet 7.5/325 every 6 hours dispense 120 with one refill, Lyrica 100 mg 3 times a day dispense 90 with 1 refill baclofen 10 mg 3 times a day dispense 90 with 1 refill he will follow up in clinic in 2 months , Time with Patient: Less than 30 PQRS Measure Charge Sheet Measure #130: Documentation of Current Meds in Medical Chart: Patient's medications documented in chart Measure #226: Tobacco Use: Screen & Cessation Intervention: Pt not a tobacco user Measure #111: Pneumonia Vaccination: Pneumococcal vaccine NOT administered or previously given Measure #47: Advance Care Plan: Advance care planning discussed & documented, pt chose/unable to give Measure #412: Opioid Treatment Agreement: Documented signed opioid trtmnt agreemnt min once during opioid trtmnt Measure #408: Opioid Therapy Follow-up Evaluation: Patient had f/u eval minimum every 3 months during opioid therapy Measure #317: Preventitive Care & Scrn High Bld Press & F/U: Normal blood pressure, f/u not required Measure #128: Body Mass Index (BMI) Screening & Follow-up: BMI documented ABOVE normal parameters - f/u documented Measure #131: Pain Assessment & Follow-up: Pain positive & plan documented, Follow-up scheduled Measure #431: Unhealthy Alcohol Use Preventative Care & Scrn: Patient not identified as an unhealthy alcohol user PQRS Narrative: Smoking Status Never smoker Narcotic Agreement Date Signed 08/17/16 Blood Pressure 116/66 Pain Intensity [Left Back] 6 Scale Used Numeric (1 - 10) Hx Alcohol Use (MH) No Home Medications: Ambulatory Orders Furosemide [Lasix] 20 mg PO BID 09/20/14 Ascorbic Acid [Vitamin C] 500 mg PO BID 08/25/15 Cholecalciferol [Vitamin D3] 20,000 unit PO DAILY 08/25/15 Cyanocobalamin (Vitamin B-12) [Vitamin B-12] 3,000 mcg PO DAILY 06/02/16 Melatonin 10 mg PO HS 08/17/16 DULoxetine HCL [Cymbalta] 60 mg PO HS 09/01/17 QUEtiapine [SEROquel] 50 mg PO HS 09/20/17 traZODone HCL [Desyrel] 300 mg PO HS 09/20/17 Naloxegol Oxalate [Movantik] 25 mg PO DAILY 10/17/17 Nystatin 100,000 Unit/gm Powd [Mycostatin Powder] 1 applic TOPICAL BID #60 gm 03/26/19 Baclofen [Lioresal] 10 mg PO TID #270 tablet 05/08/19 Pregabalin [Lyrica] 100 mg PO TID 90 Days #270 cap 05/08/19 fentaNYL 75MCG/HR PATCH [Duragesic 75MCG/HR] 1 patch TRANSDERM Q72H 30 Days #10 patch 05/08/19 fentaNYL 75MCG/HR PATCH [Duragesic 75MCG/HR] 75 mcg TRANSDERM Q72H 30 Days #10 patch 05/08/19 oxyCODONE HCL/ACETAMINOPHEN [Percocet 7.5-325 mg] 1 tab PO Q6HR PRN 30 Days #120 tab 05/08/19 oxyCODONE-APAP 7.5-325MG [Percocet 7.5-325 mg] 1 tab PO Q6H PRN 05/08/19 Controlled Substance Measures - Controlled Substance Measures Is patient prescribed a controlled substance at discharge?: Yes When asked, does pt state using other controlled substances?: No If prescribed controlled substance>3 days was MAPS reviewed?: Yes If Rx opioid, was Start Talking consent form obtained?: Yes If opioid is for acute pain is fill amount 7 days or less?: No Was information provided regarding opioid addiction?: Yes
== END | disposition home or self-care (01) ==
LOC: PNWHC3 12:47
PROVIDERS: ATTEND Specialist
DX: G89.29 Other chronic pain (principal); M47.816 Spondylosis without myelopathy or radiculopathy, lumbar region; M46.96 Unspecified inflammatory spondylopathy, lumbar region; M46.1 Sacroiliitis, not elsewhere classified; Z79.891 Long term (current) use of opiate analgesic; Z79.899 Other long term (current) drug therapy
CPT/HCPCS: 99211

== ENCOUNTER → 2019-05-21 | Outpatient (CLI) | payer BC ==
[2019-05-21 15:48] VITALS: BP 117/80; PULSE 72; TEMP 98; BMI 25.9
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
== END | disposition home or self-care (01) ==
LOC: BARWHC3 14:01
PROVIDERS: ATTEND Surgery
DX: E65 Localized adiposity (principal); Z98.84 Bariatric surgery status
CPT/HCPCS: 99211

== ENCOUNTER → 2019-07-02 | Outpatient (CLI) | payer BC ==
[2019-07-02 12:30] VITALS: BP 111/73; PULSE 65; RESP 16
--- NOTE | 2019-07-04 14:50 | P.PAINPG ---
Subjective Progress Note Date: 07/02/19 This is follow-up visit for this patient with a history of severe and chronic low back pain secondary to lumbar degenerative disc disease. Lumbar spondylosis and sacroiliitis pain is controlled between interventional pain management and medication management. he is currently complaining of left low back pain radiating to left buttocks and lateral aspect of left leg up to knee. Pain is rated at as ranging from 3-7/10. Pain is worse with activity, standing and better with medications, laying down. The patient currently on fentanyl patch 75 g every 72 hours, Lyrica 100 mg 3 times a day, baclofen 10 mg 3 times a day, Percocet 7.5/325 every 6 hours, Patient denies any side effect of the medication , patient denies any excessive drowsiness or sleepiness, patient denies any suicidal ideation, Patient reported that the current medication is helping to control the pain and improve the activity of daily livings. Patient here today for follow-up visit and medication refill . Review of systems is negative for chest pain, shortness of breath, new onset weakness, numbness/tingling, abdominal pain, malaise, fever, night sweats, chills, homicidal or suicidal ideation, or bowel or bladder incontinence. Objective Physical exam: Vitals: Reviewed in EMR GENERAL: Well appearing, in no acute distress PSYCH: Mood and affect is appropriate. Awake, alert, and oriented SKIN: Skin color, texture, turgor normal, no rashes or lesions HEENT: Normocephalic, atraumatic. EOM intact CV: No pedal edema RESP: Respirations are unlabored, no audible wheezing GI: Abdomen non-distended MUSCULOSKELETAL: Bilateral lower extremity strength is normal and symmetric. No atrophy or tone abnormalities are noted. Lumbar spine: Straight leg raising in the sitting position is negative for radicular pain. Tenderness to palpation over the lumbar spine and paraspinous musclesbilaterally. Negative for pain with facet loading and back extension/rotation. Buttocks: tenderness to palpation over the left PSIS, Jesus's test positive on left, sacral thrust positive on left, Bryant's finger positive on left Extremities: Peripheral joint ROM is full and pain free without obvious instability or laxity in all four extremities. No edema or skin discolorations noted. Gait: Gait is slow NEUR: Bilateral lower extremity coordination and muscle stretch reflexes are physiologic and symmetric. Negative clonus bilaterally. No loss of sensation is noted. Assessment and Plan Plan: Assessment and plan= chronic low back pain secondary to , lumbar spondylosis with lumbar facet arthropathy . Sacroiliitis chronic and current use of high-risk medication (opioids) Patient denies any side effects of the current pain medication and the current treatment/medication helping the patient to do activity of daily living , Diagnoses, prognosis, treatment options, including but not limited to physical therapy, medication management, interventional therapies, and surgery, were discussed with the patient All the questions answered we had a lengthy discussion regarding chronic use of opioids and long-term side effects. We will plan on dose reducing gradually, patient was recently reduced from New Era 10 to New Era 7.5. Today, I did not reduce his medications further. At next visit, we will plan on continuing dose reduction. Patient is amenable to this plan. MAPS Reviewed and it was appropriate .UDS ordered today Medication managements= patient will be given prescription refills for fentanyl patch 75 g every 72 hours dispense 10 with one refill Percocet 7.5/325 every 6 hours dispense 120 with one refill, Lyrica 100 mg 3 times a day dispense 90 with 1 refill baclofen 10 mg 3 times a day dispense 90 with 1 refill he will follow up in clinic in 2 months I did offer him an SI joint injection on the left side, however he does not want to pursue this at this time, he will call us if he would like to schedule this. Time with Patient: Less than 30 PQRS Measure Charge Sheet Measure #130: Documentation of Current Meds in Medical Chart: Patient's medications documented in chart Measure #226: Tobacco Use: Screen & Cessation Intervention: Pt not a tobacco user Measure #111: Pneumonia Vaccination: Pneumococcal vaccine administered or previously given Measure #47: Advance Care Plan: Advance care planning discussed & documented, pt chose/unable to give Measure #412: Opioid Treatment Agreement: Documented signed opioid trtmnt agreemnt min once during opioid trtmnt Measure #408: Opioid Therapy Follow-up Evaluation: Patient had f/u eval minimum every 3 months during opioid therapy Measure #317: Preventitive Care & Scrn High Bld Press & F/U: Normal blood pressure, f/u not required Measure #128: Body Mass Index (BMI) Screening & Follow-up: BMI documented within normal parameters Measure #131: Pain Assessment & Follow-up: Pain positive & plan documented, Follow-up scheduled Measure #431: Unhealthy Alcohol Use Preventative Care & Scrn: Patient not identified as an unhealthy alcohol user Objective - Vital Signs Vital signs: Vital Signs Temp Pulse 65 07/02/19 12:25 Resp 16 07/02/19 12:25 BP 111/73 07/02/19 12:25 Pulse Ox 98 07/02/19 12:25 Intake & Output 07/01/19 07/02/19 07/02/19 18:59 06:59 18:59 Weight 79.379 kg PQRS Measure Charge Sheet PQRS Narrative: Smoking Status Never smoker Narcotic Agreement Date Signed 08/03/18 Blood Pressure 111/73 Pain Intensity [Left Lower 7 Back] Scale Used Numeric (1 - 10) Hx Alcohol Use (MH) No Home Medications: Ambulatory Orders Furosemide [Lasix] 20 mg PO BID 09/20/14 Ascorbic Acid [Vitamin C] 500 mg PO BID 08/25/15 Cholecalciferol [Vitamin D3] 20,000 unit PO DAILY 08/25/15 Cyanocobalamin (Vitamin B-12) [Vitamin B-12] 3,000 mcg PO DAILY 06/02/16 Melatonin 10 mg PO HS 08/17/16 DULoxetine HCL [Cymbalta] 60 mg PO HS 09/01/17 QUEtiapine [SEROquel] 50 mg PO HS 09/20/17 traZODone HCL [Desyrel] 300 mg PO HS 09/20/17 Naloxegol Oxalate [Movantik] 25 mg PO DAILY 10/17/17 Nystatin 100,000 Unit/gm Powd [Mycostatin Powder] 1 applic TOPICAL BID #60 gm 03/26/19 Baclofen [Lioresal] 10 mg PO TID #270 tablet 05/08/19 Pregabalin [Lyrica] 100 mg PO TID 90 Days #270 cap 05/08/19 fentaNYL 75MCG/HR PATCH [Duragesic 75MCG/HR] 1 patch TRANSDERM Q72H 30 Days #10 patch 05/08/19 fentaNYL 75MCG/HR PATCH [Duragesic 75MCG/HR] 75 mcg TRANSDERM Q72H 30 Days #10 patch 05/08/19 oxyCODONE HCL/ACETAMINOPHEN [Percocet 7.5-325 mg] 1 tab PO Q6HR PRN 30 Days #120 tab 05/08/19 oxyCODONE-APAP 7.5-325MG [Percocet 7.5-325 mg] 1 tab PO Q6H PRN 05/08/19 Controlled Substance Measures - Controlled Substance Measures Is patient prescribed a controlled substance at discharge?: Yes When asked, does pt state using other controlled substances?: No If prescribed controlled substance>3 days was MAPS reviewed?: Yes If Rx opioid, was Start Talking consent form obtained?: Yes If opioid is for acute pain is fill amount 7 days or less?: No Was information provided regarding opioid addiction?: Yes
== END | disposition home or self-care (01) ==
LOC: PNWHC3 12:04
PROVIDERS: ATTEND Anesthesiology
DX: M47.816 Spondylosis without myelopathy or radiculopathy, lumbar region (principal); M46.96 Unspecified inflammatory spondylopathy, lumbar region; M46.1 Sacroiliitis, not elsewhere classified; G89.29 Other chronic pain; Z79.891 Long term (current) use of opiate analgesic; Z79.899 Other long term (current) drug therapy
CPT/HCPCS: 80307; 99211; G0482

== ENCOUNTER → 2019-08-27 | Outpatient (CLI) | payer BC ==
[2019-08-27 13:35] VITALS: BP 121/77; PULSE 77; RESP 16
--- NOTE | 2019-08-27 20:28 | P.PAINPG ---
Subjective Progress Note Date: 08/27/19 This is follow-up visit for this patient with a history of severe and chronic low back pain secondary to lumbar degenerative disc disease. Lumbar spondylosis and sacroiliitis ,pain is controlled between interventional pain management and medication management. he is currently complaining of left low back pain radiating to the posterior aspect of lower extremity left side more prominent than the right side. Pain is rated at as ranging from 3-7/10. Pain is worse with activity, standing and better with medications, laying down. The patient currently on fentanyl patch 75 g every 72 hours, Lyrica 100 mg 3 times a day, baclofen 10 mg 3 times a day, Percocet 7.5/325 every 6 hours, Patient denies any side effect of the medication , patient denies any excessive drowsiness or sleepiness, patient denies any suicidal ideation, Patient reported that the current medication is helping to control the pain and improve the activity of daily livings.Patient here today for follow-up visit and medication refill . Review of systems is negative for chest pain, shortness of breath, new onset weakness, numbness/tingling, abdominal pain, malaise, fever, night sweats, chills, homicidal or suicidal ideation, or bowel or bladder incontinence. Objective - Vital Signs Vital signs: Vital Signs Temp Pulse 77 08/27/19 13:33 Resp 16 08/27/19 13:33 BP 121/77 08/27/19 13:33 Pulse Ox 97 08/27/19 13:33 - Exam Physical Examinations : -Constitutiona : Cooperative , not in acute distress . -HEENT : nech : supple , no Lymphadenopathy , normal thyroid size . : eyes : no ptosis , no icterus, no photophobia . - neurologic : Cranial nerve II to XII intact , no focal neurological deffecit . -psychatric : alert , oriented X 3 , appropriate affect , intact judgment and insight . -Lymphatic : no Lymphadenopathy . - musculoskeltal : Lumber spine moter stegnth lower extremities ,thigh and legs 5/5 Right side , 5/5 Left side deep tendon reflexes : normal Knee Jerk , normal ankle Jerk lumber facet Loading Test =positive Right , positive Left Range of motion of the lumbar spine Flexion 30 degrees, extension 10 degrees strait leg raising test = positive at 45 degree Fabere test= positive Right , and positive LT . Sever tenderness over the Sacroiliac joint on the Right , and Left sides Assessment and Plan Plan: chronic low back pain secondary to , lumbar spondylosis with lumbar facet arthropathy . Sacroiliitis chronic and current use of high-risk medication (opioids) Patient denies any side effects of the current pain medication and the current treatment/medication helping the patient to do activity of daily living , Diagnoses, prognosis, treatment options, including but not limited to physical therapy, medication management, interventional therapies, and surgery, were discussed with the patient All the questions answered The narcotic consent was signed and patient agreed and understood the side effects and complications of opioid treatment. Patient signed the narcotic agreement, and was orally counseled, not to overuse, not to abuse, not to Divert , not tp sell pain medication, and to take it as prescribed only, Patient was counseled not to drive or operate heavy equipment while using narcotic medication, and advised not to use alcohol or any Illicit drugs while using the narcotis. understanding that lack of compliance with any of the above instructions, will likely to cause discharge from, the pain service, not to renew his narcotic prescriptions MAPS Reviwed and it was apropriate . Medication managements= patient will be given prescription refills for fentanyl patch 75 g every 72 hours dispense 10 with one refill, decrease Percocet 7.5/325 to every 8 hours dispense 90 with one refill,( currently is getting a120 ) continue Lyrica 100 mg 3 times a day dispense 90 with 1 refill baclofen 10 mg 3 times a day dispense 90 with 1 refill he will follow up in clinic in 2 months Interrelations= patient would be good candidate for diagnostic medial branch block lumbar area L3, L4 , L5 bilaterally x2 and possible RFA in the future UDS reviewed ,and it was appropriate ( WAS DONE LAST VISIT ) , Time with Patient: Less than 30 PQRS Measure Charge Sheet Measure #130: Documentation of Current Meds in Medical Chart: Patient's medications documented in chart Measure #226: Tobacco Use: Screen & Cessation Intervention: Pt not a tobacco user Measure #111: Pneumonia Vaccination: Pneumococcal vaccine NOT administered or previously given Measure #47: Advance Care Plan: Advance care planning discussed & documented, pt chose/unable to give Measure #412: Opioid Treatment Agreement: Documented signed opioid trtmnt agreemnt min once during opioid trtmnt Measure #408: Opioid Therapy Follow-up Evaluation: Patient had f/u eval minimum every 3 months during opioid therapy Measure #317: Preventitive Care & Scrn High Bld Press & F/U: Normal blood pressure, f/u not required Measure #128: Body Mass Index (BMI) Screening & Follow-up: BMI documented within normal parameters Measure #131: Pain Assessment & Follow-up: Pain positive & plan documented, Follow-up scheduled Measure #431: Unhealthy Alcohol Use Preventative Care & Scrn: Patient not identified as an unhealthy alcohol user PQRS Narrative: Smoking Status Never smoker Narcotic Agreement Date Signed 08/03/18 Blood Pressure 121/77 Pain Intensity [Left Back] 6 Scale Used Numeric (1 - 10) Hx Alcohol Use (MH) No Home Medications: Ambulatory Orders Furosemide [Lasix] 20 mg PO BID 09/20/14 Ascorbic Acid [Vitamin C] 500 mg PO BID 08/25/15 Cholecalciferol [Vitamin D3] 20,000 unit PO DAILY 08/25/15 Cyanocobalamin (Vitamin B-12) [Vitamin B-12] 3,000 mcg PO DAILY 06/02/16 Melatonin 10 mg PO HS 08/17/16 DULoxetine HCL [Cymbalta] 60 mg PO HS 09/01/17 QUEtiapine [SEROquel] 50 mg PO HS 09/20/17 traZODone HCL [Desyrel] 300 mg PO HS 09/20/17 Naloxegol Oxalate [Movantik] 25 mg PO DAILY 10/17/17 Nystatin 100,000 Unit/gm Powd [Mycostatin Powder] 1 applic TOPICAL BID #60 gm 03/26/19 Baclofen [Lioresal] 10 mg PO TID #270 tablet 05/08/19 Pregabalin [Lyrica] 100 mg PO TID 90 Days #270 cap 05/08/19 fentaNYL 75MCG/HR PATCH [Duragesic 75MCG/HR] 75 mcg TRANSDERM Q72H 30 Days #10 patch 05/08/19 oxyCODONE-APAP 7.5-325MG [Percocet 7.5-325 mg] 1 tab PO Q8H PRN 05/08/19 Controlled Substance Measures - Controlled Substance Measures Is patient prescribed a controlled substance at discharge?: Yes When asked, does pt state using other controlled substances?: No If prescribed controlled substance>3 days was MAPS reviewed?: Yes If Rx opioid, was Start Talking consent form obtained?: Yes If opioid is for acute pain is fill amount 7 days or less?: No Was information provided regarding opioid addiction?: Yes
== END | disposition home or self-care (01) ==
LOC: PNWHC3 13:15
PROVIDERS: ATTEND Specialist
DX: G89.29 Other chronic pain (principal); M51.36 Other intervertebral disc degeneration, lumbar region; M47.816 Spondylosis without myelopathy or radiculopathy, lumbar region; M46.1 Sacroiliitis, not elsewhere classified; Z79.899 Other long term (current) drug therapy
CPT/HCPCS: 99211

== ENCOUNTER 2019-09-19 08:29 | Day surgery (SDC) | payer BC ==
[2019-09-17 13:00] VITALS: BMI 25.8
[2019-09-19 08:55] VITALS: RESP 16; TEMP 97.7
[2019-09-19] MEDS ORDERED: LACTATED RINGERS 1,000 ML IV ONE (08:59)
--- NOTE | 2019-09-19 09:14 | P.PCN ---
Date of Procedure: 09/19/19 Description of Procedure: Procedure: BILATERAL L3-4, L4-5, L5-S1 Diagnosis: Lumbar spondylosis without myelopathy Anesthesia: Local and IV conscious sedation per nurse anesthesia Imaging: Fluoroscopy was used, images where saved to the medical record The patient was seen and examined in the [facility]. Procedure risks and benefits were fully reviewed with the patient. The patient understands this is a diagnostic if local only is used, as will be the case today. The goal of the procedure is to inject medication onto the medial branch or small nerves that innervate the facet joints. In this way, we can hopefully identify which of these joints, if any, may be contributing to their pain. Informed consent for procedure was obtained. The patient was taken into the office fluoroscopy procedure room and placed prone on the table. A pillow was placed under the abdomen to reduce lumbar lordosis. Vital signs were closely monitored during the procedure. The skin over the area was prepped with Betadine X 3 and draped in usual sterile manner. Sterile technique was observed throughout procedure. Under biplanar fluoroscopic guidance, the target injection area of the L4, L5, Sacral Ala were targeted. A 25 gauge 31/2 inch spinal needle was then placed at the most medial and superior aspect of the transverse process near the "eye of the Isaías dog". Aspiration for blood was negative. 1 cc of 0.5% Ropivacaine was injected into the targeted areas separately. [place] were withdrawn intact. No complications were noted during the procedure. The patient tolerated the procedure well. The patient was placed in supine position and transferred to the recovery area for observation and remained stable until discharged home. Home discharge instructions were given to the patient by the staff. Repeat in 2 weeks.
[2019-09-19] MEDS ORDERED: MIDAZOLAM 2 MG/2 ML VIAL ONE (09:20)
[2019-09-19] MEDS ORDERED: ROPIVACAINE 5MG/ML 20ML VIAL ONE (09:20)
--- NOTE | 2019-09-19 09:50 | FL ---
EXAMINATION TYPE: FL guided pain mgmt statistic DATE OF EXAM: 09/19/2019 CLINICAL HISTORY: Low back pain. TECHNIQUE: Fluoroscopy. COMPARISON: None. FINDINGS: Fluoroscopic guidance was provided during pain relief procedure performed by Dr. Back. A total of 6 seconds of fluoroscopic time was utilized during the procedure and 6 spot images are ac quired. Images acquired shows needle localization of the lumbosacral junction. IMPRESSION: As Above.
[2019-09-19 09:59] VITALS: BP 100/65; PULSE 60
[2019-09-19] MEDS ORDERED: IV FLUID CONTINUATION 1,000 ML IV ONE (10:02)
== END 2019-09-19 10:12 | disposition home or self-care (01) ==
LOC: ORPAIN 08:29
PROVIDERS: ATTEND Hospitalist
DX: M47.816 Spondylosis without myelopathy or radiculopathy, lumbar region (principal)
CPT/HCPCS: 64493; 64494; 64495; J2250; J2795; 99152

== ENCOUNTER → 2019-12-12 | Outpatient (CLI) | payer BC ==
--- NOTE | 2019-12-12 10:11 | P.PAINPG ---
Subjective Progress Note Date: 12/12/19 THIS ENCOUNTER WAS PERFORMED A TELEMEDICINE VISIT VIA SECURE TWO-WAY VIDEO AND AUDIO TO MINIMIZE RISK AND TRANSMISSION OF COVID-19. This is a follow-up visit for this patient with a history of severe and chronic low back pain secondary to lumbar degenerative disc disease. Lumbar spondylosis and sacroiliitis pain is controlled between interventional pain management and medication management. Most recently, he underwent bilateral lumbar medial branch blocks at L3, L4, L5 on 09/19/2019. he reports more than 50% pain relief lasting a few days. Unfortunately, due to Andrews virus pandemic, we were unable to perform second diagnostic medial branch block. today, his pain is located in bilateral low back, radiating to bilateral buttock and back of thigh. Pain is worse in low back compared to legs. Pain is rated as 410/10, described as mostly dull, occasionally sharp. Pain is worse with sitting in one position for too long, better with changing positions and medications. He continues to exercise and garden. The patient currently on fentanyl patch 75 g every 72 hours, Lyrica 100 mg 3 times a day, baclofen 10 mg 3 times a day, Percocet 7.5/325 every 8 hours, Patient denies any side effect of the medication , patient denies any excessive drowsiness or sleepiness, patient denies any suicidal ideation, Patient reported that the current medication is helping to control the pain and improve the activity of daily livings. Review of systems is negative for chest pain, shortness of breath, new onset weakness, numbness/tingling, abdominal pain, malaise, fever, night sweats, chills, homicidal or suicidal ideation, or bowel or bladder incontinence. Objective Physical exam: Constitutional: Healthy appearing, well developed, alert, in no acute distress Psychiatric: Judgement and insight intact, alert and oriented Mood and Affect: mood normal, affect appropriate Head and Face: Inspection: normocephalic atraumatic, extraocular movement intact Respiratory: Breathing non-labored nondyspneic Skin: Head and Neck: skin with no lesions or rash Gait: able to ambulate without assistance Neurologic: sensation grossly intact per patient Assessment and Plan Plan: Assessment and plan= chronic low back pain secondary to , lumbar spondylosis with lumbar facet arthropathy . Sacroiliitis chronic and current use of high-risk medication (opioids) Patient denies any side effects of the current pain medication and the current treatment/medication helping the patient to do activity of daily living MAPS Reviewed and it was appropriate . Medication managements= patient will be given prescription refills for fentanyl patch 75 g every 72 hours dispense 10 with one refill Percocet 7.5/325 every 6 hours dispense 90 with one refill, Lyrica 100 mg 3 times a day dispense 90 with 1 refill baclofen 10 mg 3 times a day dispense 90 with 1 refill Procedures: We will schedule second diagnostic lumbar medial branch block. he will follow up for above-mentioned procedure and in clinic for medication management in 2 months PQRS Measure Charge Sheet PQRS Narrative: Smoking Status Never smoker Narcotic Agreement Date Signed 08/03/18 Hx Alcohol Use (MH) No Home Medications: Ambulatory Orders Furosemide [Lasix] 20 mg PO BID 09/20/14 Ascorbic Acid [Vitamin C] 500 mg PO BID 08/25/15 Cyanocobalamin (Vitamin B-12) [Vitamin B-12] 3,000 mcg PO DAILY 06/02/16 Melatonin 10 mg PO HS 08/17/16 DULoxetine HCL [Cymbalta] 30 mg PO HS 09/01/17 QUEtiapine [SEROquel] 50 mg PO HS 09/20/17 traZODone HCL [Desyrel] 300 mg PO HS 09/20/17 Naloxegol Oxalate [Movantik] 25 mg PO DAILY 10/17/17 Calcium Carbonate [Calcium] 600 mg PO DAILY 09/17/19 Cholecalciferol [Vitamin D3 (25 Mcg = 1000 Iu)] 20,000 unit PO DAILY 09/17/19 L.acidoph,Paracasei, B.lactis [Probiotic] 1 each PO DAILY 09/17/19 Nystatin 100,000 Unit/gm Powd [Mycostatin Powder] 1 applic TOPICAL BID PRN 09/17/19 Potassium Chloride [Klor-Con 20] 20 meq PO DAILY 09/17/19 Turmeric Root Extract [Turmeric] 500 mg PO DAILY 09/17/19 Baclofen [Lioresal] 10 mg PO TID #270 tablet 11/13/19 Pregabalin [Lyrica] 100 mg PO TID 90 Days #270 cap 11/13/19 fentaNYL 75MCG/HR PATCH [Duragesic 75MCG/HR] 75 mcg TRANSDERM Q72H 30 Days #10 patch 11/13/19 oxyCODONE-APAP 7.5-325MG [Percocet 7.5-325 mg] 1 tab PO Q8H PRN 30 Days #90 tab 11/13/19 Controlled Substance Measures - Controlled Substance Measures Is patient prescribed a controlled substance at discharge?: Yes When asked, does pt state using other controlled substances?: No If prescribed controlled substance>3 days was MAPS reviewed?: Yes If Rx opioid, was Start Talking consent form obtained?: Yes If opioid is for acute pain is fill amount 7 days or less?: No Was information provided regarding opioid addiction?: Yes
== END | disposition home or self-care (01) ==
LOC: PNWHC3 06:46
PROVIDERS: ATTEND Anesthesiology
DX: Z53.9 Procedure and treatment not carried out, unspecified reason (principal)

== ENCOUNTER → 2019-12-25 | Outpatient (CLI) | payer BC | END | disposition home or self-care (01) | LOC: LABWHC1 13:44 | PROVIDERS: ATTEND Family Medicine | DX: Z11.59 Encounter for screening for other viral diseases (principal) ==

== ENCOUNTER → 2019-12-27 | Day surgery (SDC) | payer BC ==
[~2019-12-27] MED LIST changes: +IOPAMIDOL M200 10 ML VIAL ONE; +IV FLUID CONTINUATION 1,000 ML IV ONE; -IV FLUID CONTINUATION 650 ML IV ONE; -LACTATED RINGERS 1,000 ML IV ONE; +LACTATED RINGERS 1,000 ML IV SCH; -LIDOCAINE 1% 20 ML VIAL (10MG/ML) FOR IV START INTRADERMA ONE; +LIDOCAINE 1% INJ 10MG/ML (20 ML MDV) ONE; +MIDAZOLAM 2 MG/2 ML VIAL ONE; +ROPIVACAINE 5MG/ML 20ML VIAL ONE; +TRIAMCINOLONE ACETONIDE 40 MG/ML 1 ML VIAL ONE
[2019-12-27 10:49] VITALS: TEMP 97
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
[2019-12-27 12:12] VITALS: BP 123/84; PULSE 53; RESP 16
--- NOTE | 2019-12-27 12:15 | P.PCN ---
Date of Procedure: 12/27/19 Description of Procedure: Procedure: BILATERAL Lumbar Medial Branch Blocks of L4-5, L5-S1 Facet joints Diagnosis: Lumbar spondylosis without myelopathy Anesthesia: Local and IV conscious sedation per nurse anesthesia Imaging: Fluoroscopy was used, images where saved to the medical record The patient was seen and examined in the [facility]. Procedure risks and benefits were fully reviewed with the patient. The patient understands this is a diagnostic if local only is used, as will be the case today. The goal of the procedure is to inject medication onto the medial branch or small nerves that innervate the facet joints. In this way, we can hopefully identify which of these joints, if any, may be contributing to their pain. Informed consent for procedure was obtained. The patient was taken into the office fluoroscopy procedure room and placed prone on the table. A pillow was placed under the abdomen to reduce lumbar lordosis. Vital signs were closely monitored during the procedure. The skin over the area was prepped with Betadine X 3 and draped in usual sterile manner. Sterile technique was observed throughout procedure. Under biplanar fluoroscopic guidance, the target injection area of the L4, L5, Sacral Ala were targeted. A 25 gauge 31/2 inch spinal needle was then placed at the most medial and superior aspect of the transverse process near the "eye of the Isaías dog". Aspiration for blood was negative. 1 cc of 0.5% Ropivacaine with 2.5mg Kenalog was injected into the targeted areas separately. [place] were withdrawn intact. No complications were noted during the procedure. The patient tolerated the procedure well. The patient was placed in supine position and transferred to the recovery area for observation and remained stable until discharged home. Home discharge instructions were given to the patient by the staff. Follow up in clinic.
--- NOTE | 2019-12-27 12:26 | FL ---
Fluoroscopy INDICATION: Pain FINDINGS: Fluoroscopy time: 14 seconds. Images obtained: 2. IMPRESSIONS: 1. Documentation of fluoroscopy.
== END ==
LOC: ORPAIN 09:59
PROVIDERS: ATTEND Anesthesiology
DX: M47.816 Spondylosis without myelopathy or radiculopathy, lumbar region (principal); D64.9 Anemia, unspecified; Z87.11 Personal history of peptic ulcer disease; Z98.84 Bariatric surgery status; Z90.49 Acquired absence of other specified parts of digestive tract; Z90.89 Acquired absence of other organs; Z98.1 Arthrodesis status; Z96.651 Presence of right artificial knee joint; Z79.891 Long term (current) use of opiate analgesic; Z79.899 Other long term (current) drug therapy; Z82.49 Family history of ischemic heart disease and other diseases of the circulatory system; Z80.6 Family history of leukemia
CPT/HCPCS: 64493; 64494; J2250; J3301; J2001; Q9966; 99152

== ENCOUNTER → 2020-01-17 | Outpatient (CLI) | payer BC ==
[2020-01-17 13:06] VITALS: BP 111/73; PULSE 58; RESP 16
--- NOTE | 2020-01-17 13:31 | P.PAINPG ---
Subjective Progress Note Date: 01/17/20 This is a follow-up visit for this patient with a history of severe and chronic low back pain secondary to lumbar degenerative disc disease, Lumbar spondylosis and sacroiliitis pain is controlled between interventional pain management and medication management. Most recently, he underwent bilateral lumbar medial branch blocks at L3, L4, L5 on 09/19/2019 and 12/27/2019. he reports excellent pain relief lasting a few days. today, his pain is located in bilateral low back, radiating to bilateral bu ttock, lateral aspect of left leg to heel. Pain is worse in low back compared to legs. Pain is rated as 7/10, described as mostly dull, occasionally sharp. Pain is worse with sitting in one position for too long, better with changing positions and medications. He continues to exercise and garden. The patient currently on fentanyl patch 75 g every 72 hours, Lyrica 100 mg 3 times a day, baclofen 10 mg 3 times a day, Percocet 7.5/325 every 8 hours, Patient denies any side effect of the medication , patient denies any excessive drowsiness or sleepiness, patient denies any suicidal ideation, Patient reported that the current medication is helping to control the pain and improve the activity of daily livings. Review of systems is negative for chest pain, shortness of breath, new onset weakness, numbness/tingling, abdominal pain, malaise, fever, night sweats, chills, homicidal or suicidal ideation, or bowel or bladder incontinence. Objective Physical exam: Vitals: Reviewed in EMR GENERAL: Well appearing, in no acute distress PSYCH: Mood and affect is appropriate. Awake, alert, and oriented SKIN: Skin color, texture, turgor normal, no rashes or lesions HEENT: Normocephalic, atraumatic. EOM intact CV: No pedal edema RESP: Respirations are unlabored, no audible wheezing GI: Abdomen non-distended MUSCULOSKELETAL: Bilateral lower extremity strength is normal and symmetric. No atrophy or tone abnormalities are noted. Lumbar spine: Tenderness to palpation over the lumbar spine and paraspinous muscles bilaterally. Positive for pain with facet loading and back extension/rotation. Buttocks: Tenderness to palpation over the bilateral PSIS, Jesus test positive bilaterally. Extremities: Peripheral joint ROM is full and pain free without obvious instability or laxity in all four extremities. No edema or skin discolorations noted. Gait: Gait is slow NEUR: Cranial nerves are grossly intact. No loss of sensation is noted. Assessment and Plan Plan: Assessment and plan= chronic low back pain secondary to , lumbar spondylosis with lumbar facet arthropathy . Sacroiliitis chronic and current use of high-risk medication (opioids) Patient denies any side effects of the current pain medication and the current treatment/medication helping the patient to do activity of daily living MAPS Reviewed and it was appropriate . Medication managements= patient will be given prescription refills for fentanyl patch 75 g every 72 hours dispense 10 with one refill Percocet 7.5/325 every 6 hours dispense 90 with one refill, Lyrica 100 mg 3 times a day dispense 90 with 1 refill baclofen 10 mg 3 times a day dispense 90 with 1 refill Procedures: We will schedule bilateral lumbar radiofrequency ablation for facets L4-5 and [id number] branches of L3, L4, L5 Urine drug screen ordered today Patient was counseled on the importance of continued exercise, he was given the exercise handout for low back exercises he will follow up for above-mentioned procedure and in clinic for medication management in 2 months PQRS Measure Charge Sheet Measure #130: Documentation of Current Meds in Medical Chart: Patient's medications documented in chart Measure #226: Tobacco Use: Screen & Cessation Intervention: Pt not a tobacco user Measure #111: Pneumonia Vaccination: Pneumococcal vaccine NOT administered or previously given Measure #47: Advance Care Plan: Advance care planning discussed & documented, pt chose/unable to give Measure #412: Opioid Treatment Agreement: Documented signed opioid trtmnt agreemnt min once during opioid trtmnt Measure #408: Opioid Therapy Follow-up Evaluation: Patient had f/u eval minimum every 3 months during opioid therapy Measure #317: Preventitive Care & Scrn High Bld Press & F/U: Normal blood pressure, f/u not required Measure #128: Body Mass Index (BMI) Screening & Follow-up: BMI documented within normal parameters Measure #131: Pain Assessment & Follow-up: Pain positive & plan documented, Follow-up scheduled Measure #431: Unhealthy Alcohol Use Preventative Care & Scrn: Patient not identified as an unhealthy alcohol user PQRS Narrative: Smoking Status Never smoker Narcotic Agreement Date Signed 08/03/18 Pain Intensity [Left Lower 7 Back] Scale Used Numeric (1 - 10) Hx Alcohol Use (MH) No Home Medications: Ambulatory Orders Furosemide [Lasix] 20 mg PO BID 09/20/14 Ascorbic Acid [Vitamin C] 500 mg PO BID 08/25/15 Cyanocobalamin (Vitamin B-12) [Vitamin B-12] 3,000 mcg PO DAILY 06/02/16 Melatonin 10 mg PO HS 08/17/16 DULoxetine HCL [Cymbalta] 30 mg PO HS 09/01/17 QUEtiapine [SEROquel] 50 mg PO HS 09/20/17 traZODone HCL [Desyrel] 300 mg PO HS 09/20/17 Naloxegol Oxalate [Movantik] 25 mg PO DAILY 10/17/17 Calcium Carbonate [Calcium] 600 mg PO DAILY 09/17/19 Cholecalciferol [Vitamin D3 (25 Mcg = 1000 Iu)] 20,000 unit PO DAILY 09/17/19 L.acidoph,Paracasei, B.lactis [Probiotic] 1 each PO DAILY 09/17/19 Nystatin 100,000 Unit/gm Powd [Mycostatin Powder] 1 applic TOPICAL BID PRN 09/17/19 Potassium Chloride [Klor-Con 20] 20 meq PO DAILY 09/17/19 Turmeric Root Extract [Turmeric] 500 mg PO DAILY 09/17/19 Baclofen [Lioresal] 10 mg PO TID #90 tablet 12/12/19 Pregabalin [Lyrica] 100 mg PO TID 30 Days #90 cap 12/12/19 fentaNYL 75MCG/HR PATCH [Duragesic 75MCG/HR] 75 mcg TRANSDERM Q72H 30 Days #10 patch 12/12/19 oxyCODONE-APAP 7.5-325MG [Percocet 7.5-325 mg] 1 tab PO Q8H PRN 30 Days #90 tab 12/12/19 Controlled Substance Measures - Controlled Substance Measures Is patient prescribed a controlled substance at discharge?: Yes When asked, does pt state using other controlled substances?: No If prescribed controlled substance>3 days was MAPS reviewed?: Yes If Rx opioid, was Start Talking consent form obtained?: Yes If opioid is for acute pain is fill amount 7 days or less?: No Was information provided regarding opioid addiction?: Yes
== END | disposition home or self-care (01) ==
LOC: PNWHC3 12:46
PROVIDERS: ATTEND Anesthesiology
DX: G89.29 Other chronic pain (principal); M47.816 Spondylosis without myelopathy or radiculopathy, lumbar region; M46.1 Sacroiliitis, not elsewhere classified; F11.90 Opioid use, unspecified, uncomplicated; Z79.899 Other long term (current) drug therapy; Z79.890 Hormone replacement therapy
CPT/HCPCS: 80307; 99211; G0482

== ENCOUNTER 2020-02-05 08:30 | Day surgery (SDC) | payer BC ==
[2020-02-04 11:37] VITALS: BMI 23.6
[~2020-02-05 08:30] MED LIST changes: -IOPAMIDOL M200 10 ML VIAL ONE; -IV FLUID CONTINUATION 1,000 ML IV ONE; -LIDOCAINE 1% INJ 10MG/ML (20 ML MDV) ONE; -MIDAZOLAM 2 MG/2 ML VIAL ONE; -ROPIVACAINE 5MG/ML 20ML VIAL ONE; -TRIAMCINOLONE ACETONIDE 40 MG/ML 1 ML VIAL ONE
[2020-02-05 09:10] LABS: Glucose,Whole Blood 92 mg/dL (75-99)
[2020-02-05 09:11] VITALS: TEMP 97
[2020-02-05] MEDS ORDERED: LIDOCAINE 4% (PF) 5 ML AMP ONE (09:33)
[2020-02-05] MEDS ORDERED: MIDAZOLAM 2 MG/2 ML VIAL ONE (09:33)
[2020-02-05] MEDS ORDERED: fentaNYL (PF) 50 MCG/ML 2 ML AMP ONE (09:33)
[2020-02-05] MEDS ORDERED: IV FLUID CONTINUATION 450 ML IV ONE (10:11)
[2020-02-05 10:16] VITALS: RESP 20
[2020-02-05 10:38] VITALS: BP 118/78; PULSE 66
--- NOTE | 2020-02-05 10:48 | P.PCN ---
Date of Procedure: 02/05/20 Procedure(s) Performed: PREOPERATIVE DIAGNOSIS: Lumbar Spondylosis POSTOPERATIVE DIAGNOSIS: Same PROCEDURES: Radiofrequency ablation of the L3, L4, L5 medial branches with fluoroscopic guidance on the bilateral sides SURGEON: Raj Argueta MD. ANESTHESIA: Lidocaine 1% 5 mL, Moderate sedation with intravenous Versed and fentanyl, sedation time 28 minutes EBL: Minimal Fluoroscopy was used for the procedure and images were saved in the radiology portion of the chart. PROCEDURE INDICATION: The patient with low back pain secondary to lumbar facet arthropathy who had more than 50% relief of pain with previous diagnostic lumbar medial branch block X2. PROCEDURE DESCRIPTION / TECHNIQUE: The patient was seen and identified in the preoperative area. Risks, benefits, complications, including but not limited to risk of infection ,bleeding , allergic reactions to the medications and incomplete pain relief , and alternatives were discussed with the patient, the patient agreed to proceed with the procedure and signed the consent. IV was started. The operative site was marked. Patient was taken to the OR and time out was completed. The patient was placed in the prone position on the procedure table. The lumbar area was prepped and draped in the usual sterile fashion. . Vital signs were closely monitored during the procedure .IV sedation was used during the procedure to decrease patients anxiety. Using AP and then oblique fluoroscopy, the "eye of the Isaías dog" corresponding to the connection between the superior and transverse articular processes of the bilateral L4 and L5 as well as the sacral ala were identified, marked, and localized with 1% lidocaine. Subsequently, an 18 guage 100 mm radiofrequency cannula with a 10-mm active tip was advanced guided by fluoroscopy to the identified target at each site. Needle positioning was confirmed on AP, oblique and lateral fluoroscopy. Motor testing at 2.5 Hz was done with paraspinal muscle stimulation only, and no radicular symptoms down the legs. Then 1 mL of 4% lidocaine was injected in each site. Radiofrequency thermocoagulation at 80 degrees celsius for 90 seconds was then performed. [place] were removed. Sterile dressings were applied. COMPLICATIONS: No acute complications. DISPOSITION / PLANS: The patient was placed in a supine position and transferred to the recovery area in a stable condition for observation and was discharged from the recovery room after meeting discharge criteria. Home disc harge instructions given to the patient by the staff. The patient will follow up in clinic in 4 weeks.
--- NOTE | 2020-02-05 12:26 | FL ---
EXAMINATION TYPE: FL guided pain mgmt statistic DATE OF EXAM: 02/05/2020 FLUOROSCOPY Fluoroscopy time of 15 seconds was used during RFA facet block. 14 image/s document/s the procedure.
== END 2020-02-05 10:43 | disposition home or self-care (01) ==
LOC: ORPAIN 08:30
PROVIDERS: ATTEND Anesthesiology
DX: M47.816 Spondylosis without myelopathy or radiculopathy, lumbar region (principal)
CPT/HCPCS: 64635; 64636; J2001; J2250; J3010; 99152; 99153

== ENCOUNTER → 2020-03-26 | Outpatient (CLI) | payer BC ==
[2020-03-26 11:36] VITALS: BP 112/77; PULSE 57; RESP 14
--- NOTE | 2020-03-27 14:19 | P.PAINPG ---
Subjective Progress Note Date: 03/26/20 This is follow-up visit for this patient with a history of severe and chronic low back pain secondary to lumbar degenerative disc disease. Lumbar spondylosis and sacroiliitis ,pain is controlled between interventional pain management and medication management. Recently we have done RFA of the medial branch lumbar area and this helped his low back pain significantly, The patient currently on fentanyl patch 75 g every 72 hours, Lyrica 100 mg 3 times a day, baclofen 10 mg 3 times a day, Percocet 7.5/325 every 6 hours, Patient denies any side effect of the medication , patient denies any excessive drowsiness or sleepiness, patient denies any suicidal ideation, Patient reported that the current medication is helping to control the pain and improve the activity of daily livings.Patient here today for follow-up visit and medication refill . Review of systems is negative for chest pain, shortness of breath, new onset weakness, numbness/tingling, abdominal pain, malaise, fever, night sweats, chills, homicidal or suicidal ideation, or bowel or bladder incontinence. She reported that he is getting a lot of muscle spasm in the cervical area and also undergo back area is questioning [place] increased in dose of baclofen and is getting a muscle spasm more frequent at night time Objective - Vital Signs Vital signs: Vital Signs Temp Pulse 57 L 03/26/20 11:27 Resp 14 03/26/20 11:27 BP 112/77 03/26/20 11:27 Pulse Ox 98 03/26/20 11:27 Intake & Output 03/25/20 03/26/20 03/26/20 18:59 06:59 18:59 Weight 77.467 kg - Exam Physical Examinations : -Constitutiona : Cooperative , not in acute distress . -HEENT : nech : supple , no Lymphadenopathy , normal thyroid size . : eyes : no ptosis , no icterus, no photophobia . - neurologic : Cranial nerve II to XII intact , no focal neurological deffecit . -psychatric : alert , oriented X 3 , appropriate affect , intact judgment and insight . -Lymphatic : no Lymphadenopathy . - musculoskeltal : Cervical Spine motor stregnth in the deltoid and biceps, normal right side , normal Left side motor stregnth biceps and the wrist extensors normal right side ,normal left side . motor stregnth in the triceps muscle . normal Right side , normal Left side Trigger point in the cervical paraspinal muscles. Lumber spine moter stegnth lower extremities ,thigh and legs 5/5 Right side , 5/5 Left side deep tendon reflexes : normal Knee Jerk , normal ankle Jerk lumber facet Loading Test =positive Right , positive Left Range of motion of the lumbar spine Flexion 30 degrees, extension 10 degrees strait leg raising test = positive at 45degree Fabere test= positive Right , and positive LT . Sever tenderness over the Sacroiliac joint on the Right , and Left sides Assessment and Plan Plan: chronic low back pain secondary to , lumbar spondylosis with lumbar facet arthropathy . Sacroiliitis, myofascial pain cervical paraspinal muscles chronic and current use of high-risk medication (opioids) Patient denies any side effects of the current pain medication and the current treatment/medication helping the patient to do activity of daily living MAPS Reviewed and it was appropriate . Medication managements= patient will be given prescription refills for fentanyl patch 75 g every 72 hours dispense 10 with one refill Percocet 7.5/325 every 6 hours dispense 90 with 1 refill, Lyrica 100 mg 3 times a day dispense 90 with 1 refill ,baclofen 10 mg, one tablet by mouth every morning one tablet by mouth every p.m. and 2 tablets daily at bedtime dispense 120 with one refill he will follow up for above-mentioned procedure and in clinic for medication management in 2 months Time with Patient: Less than 30 PQRS Measure Charge Sheet Measure #130: Documentation of Current Meds in Medical Chart: Patient's medications documented in chart Measure #226: Tobacco Use: Screen & Cessation Intervention: Pt not a tobacco user Measure #111: Pneumonia Vaccination: Pneumococcal vaccine NOT administered or previously given Measure #47: Advance Care Plan: Advance care planning discussed & documented, pt chose/unable to give Measure #412: Opioid Treatment Agreement: Documented signed opioid trtmnt agreemnt min once during opioid trtmnt Measure #408: Opioid Therapy Follow-up Evaluation: Patient had f/u eval minimum every 3 months during opioid therapy Measure #317: Preventitive Care & Scrn High Bld Press & F/U: Normal blood pressure, f/u not required Measure #128: Body Mass Index (BMI) Screening & Follow-up: BMI documented within normal parameters Measure #131: Pain Assessment & Follow-up: Pain positive & plan documented, Follow-up scheduled Measure #431: Unhealthy Alcohol Use Preventative Care & Scrn: Patient not identified as an unhealthy alcohol user PQRS Narrative: Smoking Status Never smoker Narcotic Agreement Date Signed 01/17/20 Blood Pressure 112/77 Pain Intensity [Left Lower 5 Back] Hx Alcohol Use (MH) No Home Medications: Ambulatory Orders Furosemide [Lasix] 20 mg PO DAILY 09/20/14 Ascorbic Acid [Vitamin C] 500 mg PO BID 08/25/15 Cyanocobalamin (Vitamin B-12) [Vitamin B-12] 3,000 mcg PO DAILY 06/02/16 Melatonin 10 mg PO HS 08/17/16 DULoxetine HCL [Cymbalta] 30 mg PO HS 09/01/17 QUEtiapine [SEROquel] 50 mg PO HS 09/20/17 traZODone HCL [Desyrel] 300 mg PO HS 09/20/17 Naloxegol Oxalate [Movantik] 25 mg PO DAILY 10/17/17 Calcium Carbonate [Calcium] 600 mg PO DAILY 09/17/19 Cholecalciferol [Vitamin D3 (25 Mcg = 1000 Iu)] 20,000 unit PO DAILY 09/17/19 L.acidoph,Paracasei, B.lactis [Probiotic] 1 each PO DAILY 09/17/19 Nystatin 100,000 Unit/gm Powd [Mycostatin Powder] 1 applic TOPICAL BID PRN 09/17/19 Potassium Chloride [Klor-Con 20] 20 meq PO DAILY 09/17/19 Turmeric Root Extract [Turmeric] 500 mg PO DAILY 09/17/19 Fibre 1 dose PO DAILY 02/04/20 Multivitamins, Thera [Multivitamin (formulary)] 1 tab PO DAILY 02/04/20 Baclofen [Lioresal] 10 mg PO Q6H PRN #120 tablet 03/26/20 Pregabalin [Lyrica] 100 mg PO TID 30 Days #90 cap 03/26/20 fentaNYL 75MCG/HR PATCH [Duragesic 75MCG/HR] 1 patch TRANSDERM Q72H 30 Days #1 patch 03/26/20 fentaNYL 75MCG/HR PATCH [Duragesic 75MCG/HR] 1 patch TRANSDERM Q72H 30 Days #10 patch 03/26/20 oxyCODONE HCL/ACETAMINOPHEN [Percocet 7.5-325 mg] 1 tab PO Q8HR PRN #90 tab 03/26/20 oxyCODONE-APAP 7.5-325MG [Percocet 7.5-325 mg] 1 tab PO Q8HR PRN 30 Days #90 tab 03/26/20 Controlled Substance Measures - Controlled Substance Measures Is patient prescribed a controlled substance at discharge?: Yes
== END | disposition home or self-care (01) ==
LOC: PNWHC3 11:01
PROVIDERS: ATTEND Specialist
DX: M47.816 Spondylosis without myelopathy or radiculopathy, lumbar region (principal); M46.1 Sacroiliitis, not elsewhere classified; M79.18 Myalgia, other site; G89.29 Other chronic pain; Z79.891 Long term (current) use of opiate analgesic; Z79.899 Other long term (current) drug therapy
CPT/HCPCS: 99211

== ENCOUNTER → 2020-05-21 | Outpatient (CLI) | payer BC ==
--- NOTE | 2020-05-21 13:13 | P.PN ---
Subjective Progress Note Date: 05/21/20 This is a 44-year-old gentleman with history of chronic neck and lower back pain. The patient uses oral opioids to help control his pain. He tried physical therapy and interventional pain procedures before with limited response. He was able to do his daily activities in a better way and his airway using opioids orally. He uses fentanyl patch 75 mics an hour every 72 hours plus Percocet 7.5 mg 3 times a day, Lyrica 100 mg 3 times a day and baclofen 10 mg 4 times a day. The patient's pain radiates down his left leg to the mid calf area. He describes his pain as burning in quality but he denies any numbness or tingling in the leg. Patient denies new-onset weakness, bowel/bladder incontinence, or any other signs or symptoms of cauda equina syndrome. There are no signs of acute intoxication, and no indications of medication diversion or overuse. In addition to above, 13-point review of systems is also negative for chest pain, shortness of breath, changes in vision, changes in hearing, new onset weakness, abdominal pain, diarrhea, extreme fatigue, malaise, fever, skin changes, homicidal or suicidal ideation, or bowel or bladder incontinence. Vital Signs: Reviewed in EMR Gen: AAOx3, NAD HEENT: PERRLA,hearing grossly normal Pulm: resp unlabored Neck: supple, trachea midline Neuro exam of the lower extremities: Normal muscle strength bilaterally Straight leg raising test: Negative on the left side Stas's test: Range of motion of the lumbar spine: Facet loading test: Tenderness in the lumbar paravertebral musculature: Positive tenderness bilaterally Positive tenderness in the cervical paravertebral musculature bilaterally Positive tenderness in the sacroiliac joints bilaterally Neuro: CN II-XII grossly intact, Imaging: Reviewed in EMR/chart Assessment: Lumbar spondylosis without myelopathy Lumbar DDD Cervical spondylosis without myelopathy Myofascial pain Opioid dependence Plan: 1. Explanation: Opioid and psychological risk scores were reviewed. Diagnoses, prognoses, and multiple treatment options including but not limited to physical therapy, interventional therapies, adjuvant medical therapies, narcotic medication therapies, and surgery were discussed with the patient and all questions were answered to the patient's satisfaction. 2. Opioid agreement: Signed with the patient and the patient is warned not to use opioids while driving or before driving and not to combine opioids with benzodiazepines or alcohol. 3. Counseling: The patient was counseled extensively on SMOKING CESSATION, BODY MASS INDEX, EXERCISE. Specifically, the patient was instructed regarding the importance of smoking cessation, obesity, and exercise in the context of both chronic pain and overall health. 4. Procedures:none 5. Consultations: None 6. Investigations: None 7. Medications: Continue Percocet 7.5 mg 3 times a day, Lyrica 100 mg 3 times a day, fentanyl patch 75 mics an hour every 72 hours, and baclofen 10 mg 4 times a day 8. Disposition: Return to clinic in 8 weeks 9. Maps were reviewed and were appropriate. Controlled Substance Measures Is patient prescribed a controlled substance at discharge?: Yes When asked, does pt state using other controlled substances?: No If prescribed controlled substance>3 days was MAPS reviewed?: Yes If Rx opioid, was Start Talking consent form obtained?: Yes If opioid is for acute pain is fill amount 7 days or less?: No Was information provided regarding opioid addiction?: Yes
[2020-05-21 14:14] VITALS: BP 115/73; PULSE 63; RESP 16; TEMP 98.1
== END | disposition home or self-care (01) ==
LOC: PNWHC3 12:41
PROVIDERS: ATTEND Anesthesiology
DX: M47.812 Spondylosis without myelopathy or radiculopathy, cervical region (principal); M51.36 Other intervertebral disc degeneration, lumbar region; M47.816 Spondylosis without myelopathy or radiculopathy, lumbar region; M79.18 Myalgia, other site; F11.20 Opioid dependence, uncomplicated; Z79.899 Other long term (current) drug therapy
CPT/HCPCS: 99211

== ENCOUNTER → 2020-07-16 | Outpatient (CLI) | payer BC ==
[2020-07-16 12:45] VITALS: BP 112/75; PULSE 67; RESP 18; TEMP 98.2
--- NOTE | 2020-07-16 13:37 | P.PN ---
Subjective Progress Note Date: 07/16/20 This is follow-up visit for this patient with a history of severe and chronic low back pain secondary to lumbar degenerative disc disease. Lumbar spondylosis, and sacroiliitis ,pain is controlled between interventional pain management and medication management. Previously we have done RFA of the medial branch lumbar area ,and this helped his low back pain significantly, The patient currently on fentanyl patch 75 g every 72 hours, Lyrica 100 mg 3 times a day, baclofen 10 mg 4 times a day, Percocet 7.5/325 every 6 hours, Patient denies any side effect of the medication , patient denies any excessive drowsiness or sleepiness, patient denies any suicidal ideation, Patient reported that the current medication is helping to control the pain and improve the activity of daily livings.Patient here today for follow-up visit and medication refill . Review of systems is negative for chest pain, shortness of breath, new onset weakness, numbness/tingling, abdominal pain, malaise, fever, night sweats, chills, homicidal or suicidal ideation, or bowel or bladder incontinence. he reported that he is getting a lot of muscle spasm in the cervical area Objective - Vital Signs Vital signs: Vital Signs Temp 98.2 F 07/16/20 12:41 Pulse 67 07/16/20 12:41 Resp 18 07/16/20 12:41 BP 112/75 07/16/20 12:41 Pulse Ox 98 07/16/20 12:41 Intake & Output 07/15/20 07/16/20 07/16/20 18:59 06:59 18:59 Weight 77.111 kg - Exam Physical Examinations : -Constitutiona : Cooperative , not in acute distress . -HEENT : nech : supple , no Lymphadenopathy , normal thyroid size . : eyes : no ptosis , no icterus, no photophobia . - neurologic : Cranial nerve II to XII intact , no focal neurological deffecit . -psychatric : alert , oriented X 3 , appropriate affect , intact judgment and insight . -Lymphatic : no Lymphadenopathy . - musculoskeltal : Cervical Spine motor stregnth in the deltoid and biceps, normal right side , normal Left side motor stregnth biceps and the wrist extensors normal right side ,normal left side . motor stregnth in the triceps muscle . normal Right side , normal Left side Trigger point in the cervical paraspinal muscles. Lumber spine moter stegnth lower extremities ,thigh and legs 5/5 Right side , 5/5 Left side deep tendon reflexes : normal Knee Jerk , normal ankle Jerk lumber facet Loading Test =positive Right , positive Left Range of motion of the lumbar spine Flexion 30 degrees, extension 10 degrees strait leg raising test = positive at 45degree Fabere test= positive Right , and positive LT . Sever tenderness over the Sacroiliac joint on the Right , and Left sides Assessment and Plan Plan: chronic low back pain secondary to , lumbar spondylosis with lumbar facet arthropathy . Sacroiliitis, myofascial pain cervical paraspinal muscles chronic and current use of high-risk medication (opioids) Patient denies any side effects of the current pain medication and the current treatment/medication helping the patient to do activity of daily living MAPS Reviewed and it was appropriate . Medication managements= patient will be given prescription refills for fentanyl patch 75 g every 72 hours dispense 10 with one refill Percocet 7.5/325 every 6 hours dispense 90 with 1 refill, Lyrica 100 mg 3 times a day dispense 90 with 1 refill ,baclofen 10 mg, one tablet by mouth every morning one tablet by mouth every p.m. and 2 tablets daily at bedtime dispense 120 with one refill he will follow up for above-mentioned procedure and in clinic for medication management in 2 months Urine drug screen was ordered today, reviewed and it was appropriate Time with Patient: Less than 30 PQRS Measure Charge Sheet Measure #130: Documentation of Current Meds in Medical Chart: Patient's medications documented in chart Measure #226: Tobacco Use: Screen & Cessation Intervention: Pt not a tobacco user Measure #111: Pneumonia Vaccination: Pneumococcal vaccine NOT administered or previously given Measure #47: Advance Care Plan: Advance care planning discussed & documented, pt chose/unable to give Measure #412: Opioid Treatment Agreement: Documented signed opioid trtmnt agreemnt min once during opioid trtmnt Measure #408: Opioid Therapy Follow-up Evaluation: Patient had f/u eval minimum every 3 months during opioid therapy Measure #317: Preventitive Care & Scrn High Bld Press & F/U: Normal blood pressure, f/u not required Measure #128: Body Mass Index (BMI) Screening & Follow-up: BMI documented within normal parameters Measure #131: Pain Assessment & Follow-up: Pain positive & plan documented, Follow-up scheduled Measure #431: Unhealthy Alcohol Use Preventative Care & Scrn: Patient not identified as an unhealthy alcohol user PQRS Narrative: Time with Patient: Less than 30
== END | disposition home or self-care (01) ==
LOC: PNWHC3 12:31
PROVIDERS: ATTEND Specialist
DX: G89.29 Other chronic pain (principal); M47.816 Spondylosis without myelopathy or radiculopathy, lumbar region; M46.1 Sacroiliitis, not elsewhere classified; M79.18 Myalgia, other site; Z79.891 Long term (current) use of opiate analgesic
CPT/HCPCS: 80307; 99212; G0482

== ENCOUNTER → 2020-09-10 | Outpatient (CLI) | payer BC ==
[2020-09-10 12:49] VITALS: BP 151/99; PULSE 76; RESP 18; TEMP 97.9
--- NOTE | 2020-09-10 20:44 | P.PN ---
Subjective Progress Note Date: 09/10/20 This is follow-up visit for this patient with a history of severe and chronic low back pain secondary to lumbar degenerative disc disease. Lumbar spondylosis, and sacroiliitis . Previously we have done RFA of the medial branch lumbar area and sacroiliac joint injection,, The patient currently on fentanyl patch 75 g every 72 hours, Lyrica 100 mg 3 times a day, baclofen 10 mg 4 times a day, Percocet 7.5/325 every 6 hours, Patient denies any side effect of the medication , patient denies any excessive drowsiness or sleepiness, patient denies any suicidal ideation, Patient reported that the current medication is helping to control the pain and improve the activity of daily livings.Patient here today for follow-up visit and medication refill . Review of systems is negative for chest pain, shortness of breath, new onset weakness, numbness/tingling, abdominal pain, malaise, fever, night sweats, chills, homicidal or suicidal ideation, or bowel or bladder incontinence. Patient reported that his pain intensity increases in the low back area and the pain is radiating to the left lower extremity associated with some numbness and tingling sensation Physical Examinations : -Constitutiona : Cooperative , not in acute distress . -HEENT : nech : supple , no Lymphadenopathy , normal thyroid size . : eyes : no ptosis , no icterus, no photophobia . - neurologic : Cranial nerve II to XII intact , no focal neurological deffecit . -psychatric : alert , oriented X 3 , appropriate affect , intact judgment and insight . -Lymphatic : no Lymphadenopathy . - musculoskeltal : Cervical Spine motor stregnth in the deltoid and biceps, normal right side , normal Left side motor stregnth biceps and the wrist extensors normal right side ,normal left side . motor stregnth in the triceps muscle . normal Right side , normal Left side Trigger point in the cervical paraspinal muscles. Lumber spine moter stegnth lower extremities ,thigh and legs 5/5 Right side , 5/5 Left side deep tendon reflexes : normal Knee Jerk , normal ankle Jerk lumber facet Loading Test =positive Right , positive Left Range of motion of the lumbar spine Flexion 30 degrees, extension 10 degrees strait leg raising test = positive at 45degree Fabere test= positive Right , and positive LT . Sever tenderness over the Sacroiliac joint on the Right , and Left sides Assessment and Plan chronic low back pain secondary to , lumbar spondylosis with lumbar facet arthropathy . Sacroiliitis, chronic and current use of high-risk medication (opioids) Patient denies any side effects of the current pain medication and the current treatment/medication helping the patient to do activity of daily living MAPS Reviewed and it was appropriate . Medication managements= patient will be given prescription refills for fentanyl patch 75 g every 72 hours dispense 10 with one refill Percocet 7.5/325 every 6 hours dispense 90 with 1 refill, Lyrica 100 mg 3 times a day dispense 90 with 1 refill ,baclofen 10 mg, one tablet by mouth every morning one tablet by mouth every p.m. and 2 tablets daily at bedtime dispense 120 with one refill MAPS reviewed and it was appropriate UDS reviewed and it was appropriate Because intensity of the pain increased significantly over the last few weeks patient will be referred for evaluation by spine surgeon Time with Patient: Less than 30 PQRS Measure Charge Sheet Measure #130: Documentation of Current Meds in Medical Chart: Patient's medications documented in chart Measure #226: Tobacco Use: Screen & Cessation Intervention: Pt not a tobacco user Measure #111: Pneumonia Vaccination: Pneumococcal vaccine NOT administered or previously given Measure #47: Advance Care Plan: Advance care planning discussed & documented, pt chose/unable to give Measure #412: Opioid Treatment Agreement: Documented signed opioid trtmnt agreemnt min once during opioid trtmnt Measure #408: Opioid Therapy Follow-up Evaluation: Patient had f/u eval minimum every 3 months during opioid therapy Measure #317: Preventitive Care & Scrn High Bld Press & F/U: Normal blood pressure, f/u not required Measure #128: Body Mass Index (BMI) Screening & Follow-up: BMI documented within normal parameters Measure #131: Pain Assessment & Follow-up: Pain positive & plan documented, Follow-up scheduled Measure #431: Unhealthy Alcohol Use Preventative Care & Scrn: Patient not identified as an unhealthy alcohol user PQRS Narrative: Time with Patient: Less than 30 Objective - Vital Signs Vital signs: Vital Signs Temp 97.9 F 09/10/20 12:45 Pulse 76 09/10/20 12:45 Resp 18 09/10/20 12:45 BP 151/99 09/10/20 12:45 Pulse Ox 98 09/10/20 12:45 Intake & Output 09/10/20 09/10/20 09/11/20 06:59 18:59 06:59 Weight 79.746 kg
== END | disposition home or self-care (01) ==
LOC: PNWHC3 12:33
PROVIDERS: ATTEND Specialist
DX: M47.816 Spondylosis without myelopathy or radiculopathy, lumbar region (principal); M46.1 Sacroiliitis, not elsewhere classified; Z79.899 Other long term (current) drug therapy; Z79.891 Long term (current) use of opiate analgesic
CPT/HCPCS: 99211

== ENCOUNTER → 2020-11-05 | Outpatient (CLI) | payer BC ==
[2020-11-05 13:00] VITALS: BP 124/80; PULSE 70; RESP 16; TEMP 97.4
--- NOTE | 2020-11-05 13:19 | P.PN ---
Subjective Progress Note Date: 11/05/20 This is follow-up visit for this patient with a history of severe and chronic low back pain secondary to lumbar degenerative disc disease. Lumbar spondylosis, and sacroiliitis . Previously we have done RFA of the medial branch lumbar area and sacroiliac joint injection,, The patient currently on fentanyl patch 75 g every 72 hours, Lyrica 100 mg 3 times a day, baclofen 10 mg 4 times a day, Percocet 7.5/325 every 6 hours, Patient denies any side effect of the medication , patient denies any excessive drowsiness or sleepiness, patient denies any suicidal ideation, Patient reported that the current medication is helping to control the pain and improve the activity of daily livings.Patient here today for follow-up visit and medication refill . Review of systems is negative for chest pain, shortness of breath, new onset weakness, numbness/tingling, abdominal pain, malaise, fever, night sweats, chills, homicidal or suicidal ideation, or bowel or bladder incontinence. Physical Examinations : -Constitutiona : Cooperative , not in acute distress . -HEENT : nech : supple , no Lymphadenopathy , normal thyroid size . : eyes : no ptosis , no icterus, no photophobia . - neurologic : Cranial nerve II to XII intact , no focal neurological deffecit . -psychatric : alert , oriented X 3 , appropriate affect , intact judgment and insight . -Lymphatic : no Lymphadenopathy . - musculoskeltal : Cervical Spine motor stregnth in the deltoid and biceps, normal right side , normal Left side motor stregnth biceps and the wrist extensors normal right side ,normal left side . motor stregnth in the triceps muscle . normal Right side , normal Left side Trigger point in the cervical paraspinal muscles. Lumber spine moter stegnth lower extremities ,thigh and legs 5/5 Right side , 5/5 Left side deep tendon reflexes : normal Knee Jerk , normal ankle Jerk lumber facet Loading Test =positive Right , positive Left Range of motion of the lumbar spine Flexion 30 degrees, extension 10 degrees strait leg raising test = positive at 45degree Fabere test= positive Right , and positive LT . Sever tenderness over the Sacroiliac joint on the Right , and Left sides Assessment and Plan chronic low back pain secondary to , lumbar spondylosis with lumbar facet arthropathy . Sacroiliitis, chronic and current use of high-risk medication (opioids) Patient denies any side effects of the current pain medication and the current treatment/medication helping the patient to do activity of daily living MAPS Reviewed and it was appropriate . Medication managements= patient given prescription refills for fentanyl patch 75 g every 72 hours dispense 10 with one refill, Percocet 7.5/325 every 6 hours dispense 90 with 1refill, Lyrica 100 mg 3 times a day dispense 90 with 1 refill ,baclofen 10 mg, one tablet by mouth every morning one tablet by mouth every p.m. and 2 tablets daily at bedtime dispense 120 with one refill MAPS reviewed and it was appropriate UDS reviewed and it was appropriate Time with Patient: Less than 30 PQRS Measure Charge Sheet Measure #130: Documentation of Current Meds in Medical Chart: Patient's medications documented in chart Measure #226: Tobacco Use: Screen & Cessation Intervention: Pt not a tobacco user Measure #111: Pneumonia Vaccination: Pneumococcal vaccine NOT administered or previously given Measure #47: Advance Care Plan: Advance care planning discussed & documented, pt chose/unable to give Measure #412: Opioid Treatment Agreement: Documented signed opioid trtmnt agreemnt min once during opioid trtmnt Measure #408: Opioid Therapy Follow-up Evaluation: Patient had f/u eval minimum every 3 months during opioid therapy Measure #317: Preventitive Care & Scrn High Bld Press & F/U: Normal blood pressure, f/u not required Measure #128: Body Mass Index (BMI) Screening & Follow-up: BMI documented within normal parameters Measure #131: Pain Assessment & Follow-up: Pain positive & plan documented, Follow-up scheduled Measure #431: Unhealthy Alcohol Use Preventative Care & Scrn: Patient not identified as an unhealthy alcohol user PQRS Narrative: Objective - Vital Signs Vital signs: Vital Signs Temp 97.4 F L 11/05/20 12:58 Pulse 70 11/05/20 12:58 Resp 16 11/05/20 12:58 BP 124/80 11/05/20 12:58 Pulse Ox 98 11/05/20 12:58 Intake & Output 11/04/20 11/05/20 11/05/20 18:59 06:59 18:59 Weight 79.379 kg
== END ==
LOC: PNWHC3 12:44
PROVIDERS: ATTEND Specialist
DX: M47.816 Spondylosis without myelopathy or radiculopathy, lumbar region (principal); M46.1 Sacroiliitis, not elsewhere classified; G89.29 Other chronic pain; Z79.891 Long term (current) use of opiate analgesic
CPT/HCPCS: 99211

== ENCOUNTER → 2020-12-31 | Outpatient (CLI) | payer BC ==
[2020-12-31 13:52] VITALS: BP 106/75; PULSE 71; RESP 18; TEMP 98
--- NOTE | 2020-12-31 14:09 | P.PN ---
Subjective Progress Note Date: 12/31/20 This is follow-up visit for this patient with a history of severe and chronic low back pain secondary to lumbar degenerative disc disease. Lumbar spondylosis, and sacroiliitis . Previously we have done RFA of the medial branch lumbar area and sacroiliac joint injection,, The patient currently on fentanyl patch 75 g every 72 hours, Lyrica 100 mg 3 times a day, baclofen 10 mg 4 times a day, Percocet 7.5/325 every 6 hours, Patient denies any side effect of the medication , patient denies any excessive drowsiness or sleepiness, patient denies any suicidal ideation, Patient reported that the current medication is helping to control the pain and improve the activity of daily livings.Patient here today for follow-up visit and medication refill . Review of systems is negative for chest pain, shortness of breath, new onset weakness, numbness/tingling, abdominal pain, malaise, fever, night sweats, chills, homicidal or suicidal ideation, or bowel or bladder incontinence. Physical Examinations : -Constitutiona : Cooperative , not in acute distress . -HEENT : nech : supple , no Lymphadenopathy , normal thyroid size . : eyes : no ptosis , no icterus, no photophobia . - neurologic : Cranial nerve II to XII intact , no focal neurological deffecit . -psychatric : alert , oriented X 3 , appropriate affect , intact judgment and insight . -Lymphatic : no Lymphadenopathy . - musculoskeltal : Cervical Spine motor stregnth in the deltoid and biceps, normal right side , normal Left side motor stregnth biceps and the wrist extensors normal right side ,normal left side . motor stregnth in the triceps muscle . normal Right side , normal Left side Trigger point in the cervical paraspinal muscles. Lumber spine moter stegnth lower extremities ,thigh and legs 5/5 Right side , 5/5 Left side deep tendon reflexes : normal Knee Jerk , normal ankle Jerk lumber facet Loading Test =positive Right , positive Left Range of motion of the lumbar spine Flexion 30 degrees, extension 10 degrees strait leg raising test = positive at 45degree Fabere test= positive Right , and positive LT . Sever tenderness over the Sacroiliac joint on the Right , and Left sides Assessment and Plan chronic low back pain secondary to , lumbar spondylosis with lumbar facet arthropathy . Sacroiliitis, chronic and current use of high-risk medication (opioids) Patient denies any side effects of the current pain medication and the current treatment/medication helping the patient to do activity of daily living MAPS Reviewed and it was appropriate . Medication managements= patient given prescription refills for fentanyl patch 75 g every 72 hours dispense 10 with one refill, Percocet 7.5/325 every 6 hours dispense 90 with 1refill, Lyrica 100 mg 3 times a day dispense 90 with 1 refill ,baclofen 10 mg, one tablet by mouth every morning one tablet by mouth every p.m. and 2 tablets daily at bedtime dispense 120 with one refill MAPS reviewed and it was appropriate PQRS Measure Charge Sheet Measure #130: Documentation of Current Meds in Medical Chart: Patient's medications documented in chart Measure #226: Tobacco Use: Screen & Cessation Intervention: Pt not a tobacco user Measure #111: Pneumonia Vaccination: Pneumococcal vaccine NOT administered or previously given Measure #47: Advance Care Plan: Advance care planning discussed & documented, pt chose/unable to give Measure #412: Opioid Treatment Agreement: Documented signed opioid trtmnt agreemnt min once during opioid trtmnt Measure #408: Opioid Therapy Follow-up Evaluation: Patient had f/u eval minimum every 3 months during opioid therapy Measure #317: Preventitive Care & Scrn High Bld Press & F/U: Normal blood pressure, f/u not required Measure #128: Body Mass Index (BMI) Screening & Follow-up: BMI documented within normal parameters Measure #131: Pain Assessment & Follow-up: Pain positive & plan documented, Follow-up scheduled Measure #431: Unhealthy Alcohol Use Preventative Care & Scrn: Patient not identified as an unhealthy alcohol user PQRS Narrative: Objective - Vital Signs Vital signs: Vital Signs Temp 98.0 F 12/31/20 13:49 Pulse 71 12/31/20 13:49 Resp 18 12/31/20 13:49 BP 106/75 12/31/20 13:49 Pulse Ox 98 12/31/20 13:49
== END ==
LOC: PNWHC3 13:32
PROVIDERS: ATTEND Specialist
DX: G89.29 Other chronic pain (principal); M47.816 Spondylosis without myelopathy or radiculopathy, lumbar region; M46.1 Sacroiliitis, not elsewhere classified; Z79.891 Long term (current) use of opiate analgesic
CPT/HCPCS: 80307; 99212; G0482; 99211

== ENCOUNTER → 2021-02-25 | Outpatient (CLI) | payer BC ==
[2021-02-25 13:48] VITALS: BP 100/65; PULSE 60; RESP 18; TEMP 98.1
--- NOTE | 2021-02-25 14:52 | P.PN ---
Subjective Progress Note Date: 02/25/21 This is follow-up visit for this patient with a history of severe and chronic low back pain secondary to lumbar degenerative disc disease. Lumbar spondylosis, and sacroiliitis . Previously we have done RFA of the medial branch lumbar area and sacroiliac joint injection,, The patient currently on fentanyl patch 75 g every 72 hours, Lyrica 100 mg 3 times a day, baclofen 10 mg 4 times a day, Percocet 7.5/325 every 6 hours, Patient denies any side effect of the medication , patient denies any excessive drowsiness or sleepiness, patient denies any suicidal ideation, Patient reported that the current medication is helping to control the pain and improve the activity of daily livings.Patient here today for follow-up visit and medication refill . Review of systems is negative for chest pain, shortness of breath, new onset weakness, numbness/tingling, abdominal pain, malaise, fever, night sweats, chills, homicidal or suicidal ideation, or bowel or bladder incontinence. Patient feels some constipation , patient reported that the patch is not lasting for 72 hours his last only for 48 hours. The third day he feels increased his pain level significantly to the degree that he is not able to do any activity Physical Examinations : -Constitutiona : Cooperative , not in acute distress . -HEENT : nech : supple , no Lymphadenopathy , normal thyroid size . : eyes : no ptosis , no icterus, no photophobia . - neurologic : Cranial nerve II to XII intact , no focal neurological deffecit . -psychatric : alert , oriented X 3 , appropriate affect , intact judgment and insight . -Lymphatic : no Lymphadenopathy . - musculoskeltal : Cervical Spine motor stregnth in the deltoid and biceps, normal right side , normal Left side motor stregnth biceps and the wrist extensors normal right side ,normal left side . motor stregnth in the triceps muscle . normal Right side , normal Left side Trigger point in the cervical paraspinal muscles. Lumber spine moter stegnth lower extremities ,thigh and legs 5/5 Right side , 5/5 Left side deep tendon reflexes : normal Knee Jerk , normal ankle Jerk lumber facet Loading Test =positive Right , positive Left Range of motion of the lumbar spine Flexion 30 degrees, extension 10 degrees strait leg raising test = positive at 45degree Fabere test= positive Right , and positive LT . Sever tenderness over the Sacroiliac joint on the Right , and Left sides Assessment and Plan chronic low back pain secondary to , lumbar spondylosis with lumbar facet arthropathy . Sacroiliitis, chronic and current use of high-risk medication (opioids) Patient denies any side effects of the current pain medication and the current treatment/medication helping the patient to do activity of daily living MAPS Reviewed and it was appropriate . Medication managements= patient given prescription refills for fentanyl patch 75 g every 72 hours dispense 10 with one refill, Percocet 7.5/325 every 6 hours dispense 90 with 1refill, Lyrica 100 mg 3 times a day dispense 90 with 1 refill ,baclofen 10 mg, one tablet by mouth every morning one tablet by mouth every p.m. and 2 tablets daily at bedtime dispense 120 with one refill MAPS reviewed and it was appropriate Patient was advised to stop Movantik (opioid antagonist ) and by his primary care for constipation treatment, vision given prescription for Colace 2 tablets by mouth when necessary for constipation PQRS Measure Charge Sheet Measure #130: Documentation of Current Meds in Medical Chart: Patient's medications documented in chart Measure #226: Tobacco Use: Screen & Cessation Intervention: Pt not a tobacco user Measure #111: Pneumonia Vaccination: Pneumococcal vaccine NOT administered or previously given Measure #47: Advance Care Plan: Advance care planning discussed & documented, pt chose/unable to give Measure #412: Opioid Treatment Agreement: Documented signed opioid trtmnt agreem nt min once during opioid trtmnt Measure #408: Opioid Therapy Follow-up Evaluation: Patient had f/u eval minimum every 3 months during opioid therapy Measure #317: Preventitive Care & Scrn High Bld Press & F/U: Normal blood pressure, f/u not required Measure #128: Body Mass Index (BMI) Screening & Follow-up: BMI documented within normal parameters Measure #131: Pain Assessment & Follow-up: Pain positive & plan documented, Follow-up scheduled Measure #431: Unhealthy Alcohol Use Preventative Care & Scrn: Patient not identified as an unhealthy alcohol user PQRS Narrative: Objective - Vital Signs Vital signs: Vital Signs Temp 98.1 F 02/25/21 13:45 Pulse 60 02/25/21 13:45 Resp 18 02/25/21 13:45 BP 100/65 02/25/21 13:45 Pulse Ox 95 02/25/21 13:45
== END ==
LOC: PNWHC3 13:38
PROVIDERS: ATTEND Specialist
DX: M47.816 Spondylosis without myelopathy or radiculopathy, lumbar region (principal); M46.1 Sacroiliitis, not elsewhere classified; G89.29 Other chronic pain; Z79.891 Long term (current) use of opiate analgesic
CPT/HCPCS: 99211

== ENCOUNTER → 2021-04-22 | Outpatient (CLI) | payer BC ==
[2021-04-22 13:35] VITALS: BP 145/85; PULSE 56; RESP 18; TEMP 97.7
--- NOTE | 2021-04-22 13:45 | P.PN ---
Subjective Progress Note Date: 04/22/21 This is follow-up visit for this patient with a history of severe and chronic low back pain secondary to lumbar degenerative disc disease. Lumbar spondylosis, and sacroiliitis . Previously we have done RFA of the medial branch lumbar area and sacroiliac joint injection,, The patient currently on fentanyl patch 75 g every 72 hours, Lyrica 100 mg 3 times a day, baclofen 10 mg 4 times a day, Percocet 7.5/325 every 6 hours, Patient denies any side effect of the medication , patient denies any excessive drowsiness or sleepiness, patient denies any suicidal ideation, patient reported that after 48 hours he feels that the fentanyl patch not functioning anymore and he feels increased intensity of the pain the third day after the patch is on, he feels very irritable, Patient reported that the current medication is helping to control the pain and improve the activity of daily livings.Patient here today for follow-up visit and medication refill . Review of systems is negative for chest pain, shortness of breath, new onset weakness, numbness/tingling, abdominal pain, malaise, fever, night sweats, chills, homicidal or suicidal ideation, or bowel or bladder incontinence. Patient feels some constipation , patient reported that the patch is not lasting for 72 hours his last only for 48 hours. The third day he feels increased his pain level significantly to the degree that he is not able to do any activity Physical Examinations : -Constitutiona : Cooperative , not in acute distress . -HEENT : nech : supple , no Lymphadenopathy , normal thyroid size . : eyes : no ptosis , no icterus, no photophobia . - neurologic : Cranial nerve II to XII intact , no focal neurological deffecit . -psychatric : alert , oriented X 3 , appropriate affect , intact judgment and insight . -Lymphatic : no Lymphadenopathy . - musculoskeltal : Cervical Spine motor stregnth in the deltoid and biceps, normal right side , normal Left side motor stregnth biceps and the wrist extensors normal right side ,normal left side . motor stregnth in the triceps muscle . normal Right side , normal Left side Trigger point in the cervical paraspinal muscles. Lumber spine moter stegnth lower extremities ,thigh and legs 5/5 Right side , 5/5 Left side deep tendon reflexes : normal Knee Jerk , normal ankle Jerk lumber facet Loading Test =positive Right , positive Left Range of motion of the lumbar spine Flexion 30 degrees, extension 10 degrees strait leg raising test = positive at 45degree Fabere test= positive Right , and positive LT . Sever tenderness over the Sacroiliac joint on the Right , and Left sides Assessment and Plan chronic low back pain secondary to , lumbar spondylosis with lumbar facet arthropathy . Sacroiliitis, chronic and current use of high-risk medication (opioids) Patient denies any side effects of the current pain medication and the current treatment/medication helping the patient to do activity of daily living MAPS Reviewed and it was appropriate . Medication managements= patient given prescription refills for fentanyl patch 75 g every 48 hours dispense 15 with one refill, Percocet 7.5/325 every 6 hours dispense 90 with 1refill, Lyrica 100 mg 3 times a day dispense 90 with 1 refill ,baclofen 10 mg, one tablet by mouth every morning one tablet by mouth every p.m. and 2 tablets daily at bedtime dispense 120 with one refill MAPS reviewed and it was appropriate prescription for Colace 2 tablets by mouth when necessary for constipation PQRS Measure Charge Sheet Measure #130: Documentation of Current Meds in Medical Chart: Patient's medications documented in chart Measure #226: Tobacco Use: Screen & Cessation Intervention: Pt not a tobacco user Measure #111: Pneumonia Vaccination: Pneumococcal vaccine NOT administered or previously given Measure #47: Advance Care Plan: Advance care planning discussed & documented, pt chose/unable to give Measure #412: Opioid Treatment Agreement: Documented signed opioid trtmnt agreemnt min once during opioid trtmnt Measure #408: Opioid Therapy Follow-up Evaluation: Patient had f/u eval minimum every 3 months during opioid therapy Measure #317: Preventitive Care & Scrn High Bld Press & F/U: Normal blood pressure, f/u not required Measure #128: Body Mass Index (BMI) Screening & Follow-up: BMI documented within normal parameters Measure #131: Pain Assessment & Follow-up: Pain positive & plan documented, Follow-up scheduled Measure #431: Unhealthy Alcohol Use Preventative Care & Scrn: Patient not identified as an unhealthy alcohol user PQRS Narrative: Objective Objective - Vital Signs Vital signs: Vital Signs Temp 97.7 F 04/22/21 13:27 Pulse 56 L 04/22/21 13:27 Resp 18 04/22/21 13:27 BP 145/85 04/22/21 13:27 Pulse Ox 96 04/22/21 13:27
== END ==
LOC: PNWHC3 12:55
PROVIDERS: ATTEND Specialist
DX: M47.816 Spondylosis without myelopathy or radiculopathy, lumbar region (principal); M46.1 Sacroiliitis, not elsewhere classified; G89.29 Other chronic pain; Z79.891 Long term (current) use of opiate analgesic
CPT/HCPCS: 99211

== ENCOUNTER → 2021-06-17 | Outpatient (CLI) | payer BC ==
[2021-06-17 13:59] VITALS: BP 108/73; PULSE 93; RESP 18; TEMP 98
--- NOTE | 2021-06-17 17:49 | P.PN ---
Subjective Progress Note Date: 06/17/21 This is follow-up visit for this patient with a history of severe and chronic low back pain secondary to lumbar degenerative disc disease. Lumbar spondylosis, and sacroiliitis . Previously we have done RFA of the medial branch lumbar area and sacroiliac joint injection,, The patient currently on fentanyl patch 75 g every 48 hours, Lyrica 100 mg 3 times a day, baclofen 10 mg 4 times a day, Percocet 7.5/325 every 6 hours, Patient denies any side effect of the medication , patient denies any excessive drowsiness or sleepiness, patient denies any suicidal ideation, patient reported that after 48 hours he feels that the fentanyl patch not functioning anymore and he feels increased intensity of the pain the third day after the patch is on, he feels very irritable, Patient reported that the current medication is helping to control the pain and improve the activity of daily livings.Patient here today for follow-up visit and medication refill . Review of systems is negative for chest pain, shortness of breath, new onset weakness, numbness/tingling, abdominal pain, malaise, fever, night sweats, chills, homicidal or suicidal ideation, or bowel or bladder incontinence. Patient feels some constipation , patient reported that the patch is not lasting for 72 hours his last only for 48 hours. Last visit we changed his prescription for fentanyl patch from 1 patch every 72 hours to one patch every 48 hours and patient reported that since we've done that, his pain improved significantly, he denies any side effect of the medication he denies any excessive drowsiness or sleepiness, and he reported the current medication helping him to control his pain Physical Examinations : -Constitutiona : Cooperative , not in acute distress . -HEENT : nech : supple , no Lymphadenopathy , normal thyroid size . : eyes : no ptosis , no icterus, no photophobia . - neurologic : Cranial nerve II to XII intact , no focal neurological deffecit . -psychatric : alert , oriented X 3 , appropriate affect , intact judgment and insight . -Lymphatic : no Lymphadenopathy . - musculoskeltal : Cervical Spine motor stregnth in the deltoid and biceps, normal right side , normal Left side motor stregnth biceps and the wrist extensors normal right side ,normal left side . motor stregnth in the triceps muscle . normal Right side , normal Left side Trigger point in the cervical paraspinal muscles. Lumber spine moter stegnth lower extremities ,thigh and legs 5/5 Right side , 5/5 Left side deep tendon reflexes : normal Knee Jerk , normal ankle Jerk lumber facet Loading Test =positive Right , positive Left Range of motion of the lumbar spine Flexion 30 degrees, extension 10 degrees strait leg raising test = positive at 45degree Fabere test= positive Right , and positive LT . Sever tenderness over the Sacroiliac joint on the Right , and Left sides Assessment and Plan chronic low back pain secondary to , lumbar spondylosis with lumbar facet arthropathy . Sacroiliitis, chronic and current use of high-risk medication (opioids) Patient denies any side effects of the current pain medication and the current treatment/medication helping the patient to do activity of daily living MAPS Reviewed and it was appropriate . Medication managements= patient given prescription refills for fentanyl patch 75 g every 48 hours dispense 15 with one refill, Percocet 7.5/325 every 6 hours dispense 90 with 1refill, Lyrica 100 mg 3 times a day dispense 90 with 1 refill ,baclofen 10 mg, one tablet by mouth every morning one tablet by mouth every p.m. and 2 tablets daily at bedtime dispense 120 with one refill MAPS reviewed and it was appropriate prescription for Colace 2 tablets by mouth when necessary for constipation PQRS Measure Charge Sheet Measure #130: Documentation of Current Meds in Medical Chart: Patient's medications documented in chart Measure #226: Tobacco Use: Screen & Cessation Intervention: Pt not a tobacco user Measure #111: Pneumonia Vaccination: Pneumococcal vaccine NOT administered or previously given Measure #47: Advance Care Plan: Advance care planning discussed & documented, pt chose/unable to give Measure #412: Opioid Treatment Agreement: Documented signed opioid trtmnt agreemnt min once during opioid trtmnt Measure #408: Opioid Therapy Follow-up Evaluation: Patient had f/u eval minimum every 3 months during opioid therapy Measure #317: Preventitive Care & Scrn High Bld Press & F/U: Normal blood pres sure, f/u not required Measure #128: Body Mass Index (BMI) Screening & Follow-up: BMI documented within normal parameters Measure #131: Pain Assessment & Follow-up: Pain positive & plan documented, Follow-up scheduled Measure #431: Unhealthy Alcohol Use Preventative Care & Scrn: Patient not identified as an unhealthy alcohol user PQRS Narrative: Objective - Vital Signs Vital signs: Vital Signs Temp 98.0 F 06/17/21 13:44 Pulse 93 06/17/21 13:44 Resp 18 06/17/21 13:44 BP 108/73 06/17/21 13:44 Pulse Ox 96 06/17/21 13:44
== END ==
LOC: PNWHC3 13:18
PROVIDERS: ATTEND Specialist
DX: G89.29 Other chronic pain (principal); M47.816 Spondylosis without myelopathy or radiculopathy, lumbar region; M46.1 Sacroiliitis, not elsewhere classified; Z79.891 Long term (current) use of opiate analgesic
CPT/HCPCS: 99211

== ENCOUNTER → 2021-08-17 | Outpatient (CLI) | payer BC ==
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
[2021-08-17 12:34] VITALS: BP 108/70; PULSE 69; RESP 18; TEMP 98.2
== END ==
LOC: PNWHC3 11:07
PROVIDERS: ATTEND Physician Assistant Medical
DX: M51.36 Other intervertebral disc degeneration, lumbar region (principal); M47.816 Spondylosis without myelopathy or radiculopathy, lumbar region; G89.29 Other chronic pain; Z79.891 Long term (current) use of opiate analgesic
CPT/HCPCS: 80307; 99211; G0482

== ENCOUNTER 2021-08-22 15:15 | Emergency (ER) | payer BC ==
[2021-08-22 15:24] VITALS: TEMP 98.1
[2021-08-22 16:10] LABS: Basophils # (A) 0.1 k/uL (0-0.2); Basophils % (A) 1 %; Eosinophils # (A) 0.1 k/uL (0-0.7); Eosinophils % (A) 2 %; HCT 39.2 % (39.0-53.0); HGB 13.1 gm/dL (13.0-17.5); Lymphocytes # (A) 1.5 k/uL (1.0-4.8); Lymphocytes % (A) 23 %; MCH 30.1 pg (25.0-35.0); MCHC 33.5 g/dL (31.0-37.0); MCV 89.7 fL (80.0-100.0); Mean Platelet Volume 7.3; Monocytes # (A) 0.3 k/uL (0-1.0); Monocytes % (A) 5 %; Neutrophils # (A) 4.6 k/uL (1.3-7.7); Neutrophils % (A) 68 %; Platelet Count 241 k/uL (150-450); RBC 4.36 m/uL (4.30-5.90); RDW 13.9 % (11.5-15.5); WBC 6.7 k/uL (3.8-10.6)
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
[2021-08-22 16:20] LABS: Albumin 4.6 g/dL (3.5-5.0); Calcium 9.2 mg/dL (8.4-10.2); Magnesium 1.9 mg/dL (1.6-2.3); Total Bilirubin 0.9 mg/dL (0.2-1.3); Total Protein 7.4 g/dL (6.3-8.2)
[2021-08-22 16:27] LABS: INR 0.9 (<1.2); Partial Thromboplastin Time 24.7 sec (22.0-30.0); Prothrombin Time 10.3 sec (9.0-12.0)
--- NOTE | 2021-08-22 17:33 | XR ---
EXAMINATION TYPE: XR chest 2V DATE OF EXAM: 08/22/2021 COMPARISON: NONE HISTORY: Chest pain TECHNIQUE: Frontal and lateral views of the chest are obtained. FINDINGS: There is no focal air space opacity, pleural effusion, or pneumothorax seen. The cardiac silhouette size is within normal limits. The osseous structures are intact. ACDF. IMPRESSION: No acute cardiopulmonary process.
[2021-08-22 17:54] LABS: Acetaminophen <10.0 ug/mL; Alcohol <10 mg/dL; Salicylate <1.0 mg/dL
[2021-08-22 18:00] LABS: Amphetamine Screen,Urine Not Detected (NotDetected); Barbiturate Screen,Urine Not Detected (NotDetected); Benzodiazepines Screen,Urine Not Detected (NotDetected); Cocaine Screen,Urine Not Detected (NotDetected); Methadone Screen, Urine Not Detected (NotDetected); Opiate Screen,Urine Not Detected (NotDetected); Oxycodone Screen, Urine Not Detected (NotDetected); Phencyclidine Screen,Urine Not Detected (NotDetected); Tricyclic Antidepressant,Urine Not Detected (NotDetected); Urn Cannabinoid Scrn Not Detected (NotDetected)
[2021-08-23] MEDS ORDERED: oxyCODONE-APAP 7.5-325MG 1 EACH TAB PO STA (00:33)
[2021-08-23 03:08] VITALS: RESP 16
[2021-08-23 04:15] VITALS: BP 145/68; PULSE 76
== END 2021-08-23 05:32 ==
LOC: EC 15:15
DX: F32.A Depression, unspecified (principal); R45.851 Suicidal ideations; Z20.822 Contact with and (suspected) exposure to COVID-19; I10 Essential (primary) hypertension; Z79.899 Other long term (current) drug therapy
CPT/HCPCS: 36415; 71046; 80053; 80143; 80179; 80306; 80320; 82075; 83690; 83735; 84484; 85025; 85610; 85730; 87635; 93005; 99285

== ENCOUNTER → 2021-10-12 | Outpatient (CLI) | payer BC ==
--- NOTE | 2021-10-12 14:08 | P.PN ---
Subjective Progress Note Date: 10/12/21 Principal diagnosis: A 55 yr old male with a history of severe and chronic low back pain secondary to lumbar degenerative disc diseases and lumbar spondylosis with facet arthropathy presents today for medication refills. Pain level is currently at 9 out of 10 in intensity, constant, burning sensation in the lower central aspects of his lumbar spine with radiation of pain flexion right of midline to the paraspinal muscles bilaterally. Pain is provoked by bending, twisting and lifting. Pain is alleviated with medications, topicals, ice, heat, physical therapy years ago, chiropractic treatments monthly, repositioning and rest. Patient is currently on Fentanyl 75mcg #10, Percocet 7.5/325mg #90, Lyrica 100mg #90, Baclofen 10mg #60 & Baclofen 20mg QHS #30 Patient denies any side effects of the medication(s), denies excessive drowsiness or sleepiness, denies suicidal ideation and reports that the current pain medication is helping to control the pain and improve activities of daily living. Patient denies any motor or sensory deficits. Patient denies any fever or night sweats, denies any change in the bowel movements or urination. Physical Examination: -Constitutional: Cooperative. Not in acute distress . -HEENT: Neck is supple. No lymphadenopathy. No thyromegaly. Normal thyroid size. Eyes: No ptosis , no icterus, no photophobia. ENT: No auditory deficits. Normal oropharynx. No Thrush. - Respiratory: Chest clear to auscultations bilaterally. No wheezing. No rhonchi. - Cardiovascular: Regular rate and rhythm. S1 / S2 , no S3 , no S4. - Gastrointestinal: Abdomen soft no tenderness. Bowel sounds positive in all four quadrants. No organomegaly. - Genitourinary: Deferred. - Neurologic: Cranial nerve II to XII intact. No focal neurological deficits. - Psychatric: Alert & oriented x 3. Matching mood & appropriate affect. Judgment and insight intact. - Lymphatic: No Lymphadenopathy. - Musculoskeletal: Cervical spine: Muscle bulk/ tone/ strength in the bilateral upper extremities normal. Facet loading test cervical area positive. Lumbar spine: Motor bulk/ tone/ strength lower extremities , thigh and legs : 5/5 Deep tendon reflexes : Normal Knee Jerk. Normal Ankle Jerk . Vertebral body tenderness to palpation over L4, L5 Lumbar Facet Loading Test positive Straight Leg Raise: positive at 30 degrees right side/ left side Gaenslen's Test positive Sacral spine : Severe tenderness over the Sacroiliac joint: right side / left side Range of motion: Flexion of the lumbar spine <60 degrees Range of motion: Extension of the lumbar spine <20 degrees Gaenslen's Test positive Jesus test: positive right side / left side Assessment and plan: Chronic low back pain secondary to lumbar degenerative disc disease , lumbar spondylosis with facet arthropathy without myelopathy Chronic and current use of high-risk medication (Opioids). The patient was counseled about risk of opioid use, psychological risk associated with opioids and was orally counseled to not overuse , divert or sell medications. Pt is to store medication in a safe location. The patient is counseled against driving while using narcotic medications and also not to use alcohol or any illicit recreational drugs. Patient verbalized understanding that the lack of compliance will result in failure to renew narcotic prescription(s) as well as possible discharge from the clinic Diagnoses, prognosis and treatment options including but not limited to physical therapy, surgical interventions, interventional therapies and medication management including narcotics and adjuvant medication were discussed. All patient questions answered MAPS reviewed and it was appropriate. UDS from Aug 2021 reviewed and consistent Prescription refill for fentanyl 75 g #10 with 1 refill, Percocet 7.5/325 #90 with 1 refill, Lyrica 100 mg #90 with 1 refill, Baclofen 10 mg #60 with 1 refill, Baclofen 20 mg QHS #30 with 1 refill I have spent 31 minutes on patient care today. Dr Pate was available by phone for the evaluation of this patient. The time was used to review the medical records including relevant urine studies and Prescription history (MAPs), review of the available imaging, evaluation and examination of the patient, coordination of care with the medical staff and if applicable referring physicians, as well as creation of the medical record PQRS Measure Charge Sheet PQRS Narrative: Smoking Status Never smoker Narcotic Agreement Date Signed 02/25/21 Hx Alcohol Use (MH) No Home Medications: Ambulatory Orders Furosemide [Lasix] 20 mg PO DAILY 09/20/14 traZODone HCL [Desyrel] 300 mg PO HS 09/20/17 Potassium Chloride [Klor-Con 20] 20 meq PO DAILY 09/17/19 Multivitamins, Thera [Multivitamin (formulary)] 1 tab PO DAILY 02/04/20 calcium polycarbophiL [Fibercon] 625 mg PO DAILY 07/15/20 Ascorbic Acid [Vitamin C] 1,000 mg PO DAILY 08/22/21 Cholecalciferol [Vitamin D3 (125 Mcg = 5000 Iu)] 125 mcg PO DAILY 08/22/21 Folic Acid 1 mg PO DAILY 08/22/21 Baclofen [Lioresal] 10 mg PO BID@0900,1500 30 Days #60 tab 10/12/21 Baclofen [Lioresal] 20 mg PO HS 30 Days #30 tab 10/12/21 Pregabalin [Lyrica] 100 mg PO TID 30 Days #90 cap 10/12/21 fentaNYL 75MCG/HR PATCH [Duragesic 75MCG/HR] 1 patch TRANSDERM Q72H 30 Days #10 patch 10/12/21 fentaNYL 75MCG/HR PATCH [Duragesic 75MCG/HR] 1 patch TRANSDERM Q72H 30 Days #10 patch 10/12/21 oxyCODONE HCL/ACETAMINOPHEN [Percocet 7.5-325 mg] 1 tab PO Q8H PRN 30 Days #90 tab 10/12/21 oxyCODONE-APAP 7.5-325MG [Percocet 7.5-325 mg] 1 tab PO Q8HR PRN 30 Days #90 tab 10/12/21
[2021-10-12 14:34] VITALS: BP 153/93; PULSE 83; RESP 18; TEMP 98
== END ==
LOC: PNWHC3 11:36
PROVIDERS: ATTEND Specialist
DX: G89.29 Other chronic pain (principal); M51.36 Other intervertebral disc degeneration, lumbar region; M47.816 Spondylosis without myelopathy or radiculopathy, lumbar region; Z79.891 Long term (current) use of opiate analgesic
CPT/HCPCS: 99211

== ENCOUNTER → 2021-12-07 | Outpatient (CLI) | payer BC ==
[2021-12-07 13:32] VITALS: BP 132/79; PULSE 71; RESP 18; TEMP 98.4
--- NOTE | 2021-12-07 13:32 | P.PN ---
Subjective Progress Note Date: 12/07/21 This is a 56-year-old gentleman with history of chronic lower back pain with radiation to the left lower extremity down to the left ankle with occasional numbness and tingling. The patient has been using opioids for long time including fentanyl patch 75 g an hour every 48 hours, Percocet 7.5 mg 3 times a day, Lyrica 100 mg 3 times a day, baclofen 10 mg twice a day and 20 mg at night. The patient denies any side effects to these medications. The patient failed to respond to multiple interventional pain procedures previously. He also failed to respond to physical therapy previously. His pain has been well- controlled with the above-mentioned medications with no side effects and no drug-seeking behavior. Patient denies new-onset weakness, bowel/bladder incontinence, or any other signs or symptoms of cauda equina syndrome. There are no signs of acute intoxication, and no indications of medication diversion or overuse. In addition to above, 13-point review of systems is also negative for chest pain, shortness of breath, changes in vision, changes in hearing, new onset weakness, abdominal pain, diarrhea, extreme fatigue, malaise, fever, skin changes, homicidal or suicidal ideation, or bowel or bladder incontinence. Vital Signs: Reviewed in EMR Gen: AAOx3, NAD HEENT: PERRLA,hearing grossly normal Pulm: resp unlabored Neck: supple, trachea midline Neuro exam of the lower extremities: Within normal limits Straight leg raising test: Bilaterally lumbar paravertebral musculature more on the left side on the right side Stas's test: Range of motion of the lumbar spine: Facet loading test: Tenderness in the paravertebral musculature: Neuro: CN II-XII grossly intact, Imaging: Reviewed in EMR/chart Assessment: Lumbar spondylosis without myelopathy Lumbar DDD Opioid dependence Plan: 1. Explanation: When patients on opioids, opioid and psychological risk scores were reviewed. Diagnoses, prognoses, and multiple treatment options including but not limited to physical therapy, interventional therapies, adjuvant medical therapies, narcotic medication therapies, and surgery were discussed with the patient and all questions were answered to the patient's satisfaction. 2. Opioid agreement:When patients are prescribed opoids through our clinic, opioid agreement is signed with the patient and the patient is warned not to use opioids while driving or before driving and not to combine opioids with benzodiazepines or alcohol. 3. Counseling: When patient is smoking or obese, the patient was counseled extensively on SMOKING CESSATION, BODY MASS INDEX, EXERCISE. Specifically, the patient was instructed regarding the importance of smoking cessation, obesity, and exercise in the context of both chronic pain and overall health. 4. Procedures: None 5. Consultations: None 6. Investigations: None 7. Medications: Continue with the above-mentioned patient's 8. Disposition: Return to clinic in 4 weeks 9. Maps were reviewed and were appropriate. Objective - Vital Signs Vital signs: Intake & Output 12/06/21 12/07/21 12/07/21 18:59 06:59 18:59 Weight 81.647 kg
== END ==
LOC: PNWHC3 13:02
PROVIDERS: ATTEND Anesthesiology
DX: M47.816 Spondylosis without myelopathy or radiculopathy, lumbar region (principal); M51.36 Other intervertebral disc degeneration, lumbar region; F11.20 Opioid dependence, uncomplicated
CPT/HCPCS: 99211

== ENCOUNTER → 2022-01-04 | Outpatient (CLI) | payer BC ==
--- NOTE | 2022-01-04 13:56 | P.PAINPG ---
Objective - Vital Signs Vital signs: Intake & Output 01/03/22 01/04/22 01/04/22 18:59 06:59 18:59 Weight 180 kg PQRS Measure Charge Sheet Comment: A 56 yr old male with a history of severe and chronic low back pain secondary to lumbar degenerative disc diseases and lumbar spondylosis with facet arthropathy presents today for medication refills. Pain level is currently at 8 out of 10 in intensity, constant, aching pain in the mid to lower aspects of his lumbar spine with shooting, stabbing pain occasionally down the left lower extremity. Pain is provoked with twisting or other specific types of movements. Pain is relieved with medications, alternating ice and heat, repositioning, daily home stretching regimen and rest. Patient is currently on baclofen 20 mg daily at bedtime, Percocet /, fentanyl 75 g #15, Neurontin 100 mg #90 Patient denies any side effects of the medication(s), denies excessive drowsiness or sleepiness, denies suicidal ideation and reports that the current pain medication is helping to control the pain and improve activities of daily living. Patient denies any motor or sensory deficits. Patient denies any fever or night sweats, denies any change in the bowel movements or urination. Physical Examination: -Constitutional: Cooperative. Not in acute distress . -HEENT: Neck is supple. No lymphadenopathy. No thyromegaly. Normal thyroid size. Eyes: No ptosis , no icterus, no photophobia. ENT: No auditory deficits. Normal oropharynx. No Thrush. - Respiratory: Chest clear to auscultations bilaterally. No wheezing. No rhonchi. - Cardiovascular: Regular rate and rhythm. S1 / S2 , no S3 , no S4. - Gastrointestinal: Abdomen soft no tenderness. Bowel sounds positive in all four quadrants. No organomegaly. - Genitourinary: Deferred. - Neurologic: Cranial nerve II to XII intact. No focal neurological deficits. - Psychatric: Alert & oriented x 3. Matching mood & appropriate affect. Judgment and insight intact. - Lymphatic: No Lymphadenopathy. - Musculoskeletal: Cervical spine: Muscle bulk/ tone/ strength in the bilateral upper extremities normal Vertebral body tenderness to palpation over Facet loading test positive Thoracic spine Muscle bulk / tone/ strength in the bilateral paraspinal muscles normal Vertebral body tender to palpation over Facet loading test positive Lumbar spine: Motor bulk/ tone/ strength lower extremities , thigh and legs : 5/5 Deep tendon reflexes : Normal Knee Jerk. Normal Ankle Jerk . Vertebral body tenderness to palpation over L3, L4, L5 Lumbar Facet Loading Test positive Straight Leg Raise: positive at 30 degrees right side/ left side Gaenslen's Test positive Sacral spine : Severe tenderness over the Sacroiliac joint: right side / left side Range of motion: Flexion of the lumbar spine <60 degrees Range of motion: Extension of the lumbar spine <20 degrees Gaenslen's Test positive Stas's Test positive Jesus test: positive right side / left side Thigh Thrust Test Sacral Thrust Test Assessment and plan: Chronic low back pain secondary to lumbar degenerative disc disease , lumbar spondylosis with facet arthropathy without myelopathy Chronic and current use of high-risk medication (Opioids). The patient was counseled about risk of opioid use, psychological risk associated with opioids and was orally counseled to not overuse , divert or sell medications. Pt is to store medication in a safe location. The patient is counseled against driving while using narcotic medications and also not to use alcohol or any illicit recreational drugs. Patient verbalized understanding that the lack of compliance will result in failure to renew narcotic prescription(s) as well as possible discharge from the clinic Diagnoses, prognosis and treatment options including but not limited to physical therapy, surgical interventions, interventional therapies and medication management including narcotics and adjuvant medication were discussed. All patient questions answered MAPS reviewed and it was appropriate. Prescription refill for Baclofen 20 mg QHS #30, Percocet 10/325 #90, fentanyl 75 g #15, Neurontin 100 mg #90 w 1 refill I have spent 31 minutes on patient care today. Dr Pate was available by phone for the evaluation of this patient. The time was used to review the medical records including relevant urine studies and Prescription history (MAPs), review of the available imaging, evaluation and examination of the patient, coordination of care with the medical staff and if applicable referring physicians, as well as creation of the medical record PQRS Narrative: Smoking Status Never smoker Narcotic Agreement Date Signed 02/25/21 Hx Alcohol Use (MH) No Home Medications: Ambulatory Orders Furosemide [Lasix] 20 mg PO DAILY 09/20/14 traZODone HCL [Desyrel] 300 mg PO HS 09/20/17 Potassium Chloride [Klor-Con 20] 20 meq PO DAILY 09/17/19 Multivitamins, Thera [Multivitamin (formulary)] 1 tab PO DAILY 02/04/20 calcium polycarbophiL [Fibercon] 625 mg PO DAILY 07/15/20 Ascorbic Acid [Vitamin C] 1,000 mg PO DAILY 08/22/21 Cholecalciferol [Vitamin D3 (125 Mcg = 5000 Iu)] 125 mcg PO DAILY 08/22/21 Folic Acid 1 mg PO DAILY 08/22/21 Baclofen [Lioresal] 10 mg PO BID@0900,1500 30 Days #60 tab 10/12/21 Lidocaine 5% Patch [Lidoderm] 1 patch TOPICAL DAILY 30 Days #30 patch 11/30/21 Baclofen [Lioresal] 20 mg PO HS 30 Days #30 tab 01/04/22 Pregabalin [Lyrica] 100 mg PO TID 30 Days #90 cap 01/04/22 fentaNYL 75MCG/HR PATCH [Duragesic 75MCG/HR] 1 patch TRANSDERM Q48H 30 Days #15 patch 01/04/22 fentaNYL 75MCG/HR PATCH [Duragesic 75MCG/HR] 75 mcg TRANSDERM Q72H 30 Days #15 patch 01/04/22 oxyCODONE HCL/ACETAMINOPHEN [Percocet 7.5-325 mg] 1 tab PO Q8H PRN 30 Days #90 tab 01/04/22 oxyCODONE-APAP 7.5-325MG [Percocet 7.5-325 mg] 1 tab PO Q8HR PRN 30 Days #90 tab 01/04/22 Controlled Substance Measures - Controlled Substance Measures Is patient prescribed a controlled substance at discharge?: Yes When asked, does pt state using other controlled substances?: Yes If prescribed controlled substance>3 days was MAPS reviewed?: Yes If Rx opioid, was Start Talking consent form obtained?: Yes If opioid is for acute pain is fill amount 7 days or less?: Yes Was information provided regarding opioid addiction?: Yes
[2022-01-04 14:08] VITALS: BP 120/83; PULSE 88; RESP 18; TEMP 97.7
== END ==
LOC: PNWHC3 13:19
PROVIDERS: ATTEND Specialist
DX: G89.29 Other chronic pain (principal); M51.36 Other intervertebral disc degeneration, lumbar region; M47.816 Spondylosis without myelopathy or radiculopathy, lumbar region; Z79.891 Long term (current) use of opiate analgesic
CPT/HCPCS: 80307; 99211; G0482; 99212

== ENCOUNTER → 2022-03-01 | Outpatient (CLI) | payer BC ==
[2022-03-01 13:08] VITALS: BP 122/76; PULSE 86; RESP 18; TEMP 97.8
--- NOTE | 2022-03-01 14:27 | P.PAINPG ---
PQRS Measure Charge Sheet Comment: A 56 yr old male with a history of severe and chronic low back pain secondary to lumbar degenerative disc diseases and lumbar spondylosis with facet arthropathy presents today for medication refills. Pain level is currently at 6/10 in intensity, constant, stabbing, burning shooting towards the glutes BL. Pain is provoked by staying in one position for periods of 1 hr or more. Pain is alleviated with PT integrated w massage in the past, heat, ice, home exercise regimen, repositioning and rest. Patient is currently on Percocet 7.5/325mg #90, Lyrica 100mg #90, Fentanyl 75mcg/hr #10 Patient denies any side effects of the medication(s), denies excessive drowsiness or sleepiness, denies suicidal ideation and reports that the current pain medication is helping to control the pain and improve activities of daily living. Patient denies any motor or sensory deficits. Patient denies any fever or night sweats, denies any change in the bowel movements or urination. Physical Examination: -Constitutional: Cooperative. Not in acute distress . - Neurologic: Cranial nerve II to XII intact. No focal neurological deficits. - Psychatric: Alert & oriented x 3. Matching mood & appropriate affect. Judgment and insight intact. - Musculoskeletal: Cervical spine: Muscle bulk/ tone/ strength in the bilateral upper extremities normal Vertebral body tenderness to palpation over Spurling test positive Distraction test positive Facet loading test positive Thoracic spine Muscle bulk / tone/ strength in the bilateral paraspinal muscles normal Vertebral body tender to palpation over Facet loading test positive Lumbar spine: Motor bulk/ tone/ strength lower extremities , thigh and legs : 5/5 Deep tendon reflexes : Normal Knee Jerk. Normal Ankle Jerk . Vertebral body tenderness to palpation over Lumbar Facet Loading Test positive Straight Leg Raise: positive at 30 degrees right side/ left side Gaenslen's Test positive Sacral spine : Severe tenderness over the Sacroiliac joint: right side / left side Range of motion: Flexion of the lumbar spine <60 degrees Range of motion: Extension of the lumbar spine <20 degrees Gaenslen's Test positive BL Stas's Test positive Jesus test: positive right side / left side Thigh Thrust Test Sacral Thrust Test Assessment and plan: Chronic low back pain secondary to lumbar degenerative disc disease , lumbar spondylosis with facet arthropathy without myelopathy Chronic and current use of high-risk medication (Opioids). The patient was counseled about risk of opioid use, psychological risk associated with opioids and was orally counseled to not overuse , divert or sell medications. Pt is to store medication in a safe location. The patient is counseled against driving while using narcotic medications and also not to use alcohol or any illicit recreational drugs. Patient verbalized understanding that the lack of compliance will result in failure to renew narcotic prescription(s) as well as possible discharge from the clinic Diagnoses, prognosis and treatment options including but not limited to physical therapy, surgical interventions, interventional therapies and medication management including narcotics and adjuvant medication were discussed. All patient questions answered MAPS reviewed and it was appropriate. UDS from 01/04/22 reviewed and consistent Prescription refill for Lyrica 100mg #90, Fentanyl 75mcg/hr #10, Percocet 7.5/325mg #90 w 1 refill. Will add Narcan 2mg IM q 2 min prn diminished level of consciousness or respiratory distress. I have spent less than 30 minutes on patient care today. Dr Pate was available by phone for the evaluation of this patient. The time was used to review the medical records including relevant urine studies and Prescription history (MAPs), review of the available imaging, evaluation and examination of the patient, coordination of care with the medical staff and if applicable referring physicians, as well as creation of the medical record - Pain Location Lower Back Non-Pharmacological Interventions: Heat, Home Exercise, Ice, Massage, Physical Therapy, Position/Reposition, Stretching Pharmacological Interventions: PRN Medication, Scheduled Medication, Topical Medication PQRS Narrative: Smoking Status Never smoker Narcotic Agreement Date Signed 02/25/21 Hx Alcohol Use (MH) No Home Medications: Ambulatory Orders Furosemide [Lasix] 20 mg PO DAILY 09/20/14 traZODone HCL [Desyrel] 300 mg PO HS 09/20/17 Potassium Chloride [Klor-Con 20] 20 meq PO DAILY 09/17/19 Multivitamins, Thera [Multivitamin (formulary)] 1 tab PO DAILY 02/04/20 calcium polycarbophiL [Fibercon] 625 mg PO DAILY 07/15/20 Ascorbic Acid [Vitamin C] 1,000 mg PO DAILY 08/22/21 Cholecalciferol [Vitamin D3 (125 Mcg = 5000 Iu)] 125 mcg PO DAILY 08/22/21 Folic Acid 1 mg PO DAILY 08/22/21 Baclofen [Lioresal] 10 mg PO BID@0900,1500 30 Days #60 tab 10/12/21 Lidocaine 5% Patch [Lidoderm] 1 patch TOPICAL DAILY 30 Days #30 patch 11/30/21 Baclofen [Lioresal] 20 mg PO HS 30 Days #30 tab 01/04/22 Naloxone [Narcan] 2 mg IM ONCE 30 Days #1 each 03/01/22 Pregabalin [Lyrica] 100 mg PO TID 30 Days #90 cap 03/01/22 fentaNYL 75MCG/HR PATCH [Duragesic 75MCG/HR] 1 patch TRANSDERM Q48H 30 Days #15 patch 03/01/22 fentaNYL 75MCG/HR PATCH [Duragesic 75MCG/HR] 1 patch TRANSDERM Q48H 30 Days #15 patch 03/01/22 oxyCODONE HCL/ACETAMINOPHEN [Percocet 7.5-325 mg] 1 tab PO Q8H PRN 30 Days #90 tab 03/01/22 oxyCODONE-APAP 7.5-325MG [Percocet 7.5-325 mg] 1 tab PO Q8HR PRN 30 Days #90 tab 03/01/22 Controlled Substance Measures - Controlled Substance Measures Is patient prescribed a controlled substance at discharge?: Yes When asked, does pt state using other controlled substances?: No If prescribed controlled substance>3 days was MAPS reviewed?: Yes If Rx opioid, was Start Talking consent form obtained?: Yes Was information provided regarding opioid addiction?: Yes
== END ==
LOC: PNWHC3 12:46
PROVIDERS: ATTEND Specialist
DX: M51.36 Other intervertebral disc degeneration, lumbar region (principal); M47.816 Spondylosis without myelopathy or radiculopathy, lumbar region; G89.29 Other chronic pain; Z79.891 Long term (current) use of opiate analgesic
CPT/HCPCS: 99211

== ENCOUNTER → 2022-04-26 | Outpatient (CLI) | payer BC ==
[2022-04-26 13:23] VITALS: BP 138/84; PULSE 67; RESP 18; TEMP 98.3
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
== END | disposition home or self-care (01) ==
LOC: PNWHC3 12:42
PROVIDERS: ATTEND Specialist
DX: M51.36 Other intervertebral disc degeneration, lumbar region (principal); M46.96 Unspecified inflammatory spondylopathy, lumbar region; M47.896 Other spondylosis, lumbar region
CPT/HCPCS: 99211

== ENCOUNTER → 2022-06-21 | Outpatient (CLI) | payer BC ==
[2022-06-21 14:10] VITALS: BP 112/67; PULSE 68; RESP 16; TEMP 98.4
--- NOTE | 2022-06-21 15:38 | P.PAINPG ---
PQRS Measure Charge Sheet Comment: A 56 yr old male with a history of severe and chronic low back pain secondary to lumbar DDD and spondylosis with facet arthropathy without myelopathy presents today for medication refills. Pain level is at 10 /10 in intensity w provocation, constant, localized in the mid to lower L lumbar spine, burning in character w shooting towards L glute and LLE. Pain is provoked by twisting, bending, lifting. Pain is alleviated with PT in the past, home exercise daily, medications (Percocet 7.5/325mg #90, Lyrica 100mg#90, Fentanyl 75mcg/hr #15, Baclofen), repositioning and rest. Pt wants to try chiropractic treatments soon and has one in mind. Patient is currently on Percocet 7.5/325mg #90, Lyrica 100mg#90, Fentanyl 75mcg/hr #15, Baclofen, Colace Patient denies any side effects of the medication(s), denies excessive drowsiness or sleepiness, denies suicidal ideation and reports that the current pain medication is helping to control the pain and improve activities of daily living. Patient denies any motor or sensory deficits. Patient denies any fever or night sweats, denies any change in the bowel movements or urination. Physical Examination: -Constitutional: Cooperative. Not in acute distress . - Neurologic: Cranial nerve II to XII intact. No focal neurological deficits. - Psychatric: Alert & oriented x 3. Matching mood & appropriate affect. Judgment and insight intact. - Musculoskeletal: Cervical spine: Muscle bulk/ tone/ strength in the bilateral upper extremities normal Vertebral body tenderness to palpation over Spurling test positive Distraction test positive Facet loading test positive Thoracic spine Muscle bulk / tone/ strength in the bilateral paraspinal muscles normal Vertebral body tender to palpation over Facet loading test positive Lumbar spine: Motor bulk/ tone/ strength lower extremities , thigh and legs : 5/5 Deep tendon reflexes : Normal Knee Jerk. Normal Ankle Jerk . Vertebral body tenderness to palpation over L3, L4, L5 Lumbar Facet Loading Test positive on L lateral flexion Straight Leg Raise: positive at 30 degrees right side/ left side Gaenslen's Test positive Sacral spine : Severe tenderness over the Sacroiliac joint: right side / left side Range of motion: Flexion of the lumbar spine <60 degrees Range of motion: Extension of the lumbar spine <20 degrees Gaenslen's Test positive Jesus test: positive right side / left side Thigh Thrust Test Sacral Thrust Test Assessment and plan: Chronic low back pain secondary to lumbar degenerative disc disease, spondylosis with facet arthropathy without myelopathy Chronic and current use of high-risk medication (Opioids). The patient was counseled about risk of opioid use, psychological risk associated with opioids and was orally counseled to not overuse , divert or sell medications. Pt is to store medication in a safe location. The patient is counseled against driving while using narcotic medications and also not to use alcohol or any illicit recreational drugs. Patient verbalized understanding that the lack of compliance will result in failure to renew narcotic prescription(s) as well as possible discharge from the clinic Diagnoses, prognosis and treatment options including but not limited to physical therapy, surgical interventions, interventional therapies and medication management including narcotics and adjuvant medication were discussed. All patient questions answered MAPS reviewed and it was appropriate. Urine collected for UDS today 06/21/22 Prescription refill for Percocet 7.5/325mg #90, Lyrica 100mg#90, Fentanyl 75mcg/hr #15, Baclofen and Dulcolax w 1 RF I have spent less than 30 minutes on patient care today. Dr Pate was available by phone for the evaluation of this patient. The time was used to review the medical records including relevant urine studies and Prescription history (MAPs), review of the available imaging, evaluation and examination of the patient, coordination of care with the medical staff and if applicable referring physicians, as well as creation of the medical record PQRS Narrative: Smoking Status Never smoker Narcotic Agreement Date Signed 03/01/22 Hx Alcohol Use (MH) No Home Medications: Ambulatory Orders Furosemide [Lasix] 20 mg PO DAILY 09/20/14 traZODone HCL [Desyrel] 300 mg PO HS 09/20/17 Potassium Chloride [Klor-Con 20] 20 meq PO DAILY 09/17/19 Multivitamins, Thera [Multivitamin (formulary)] 1 tab PO DAILY 02/04/20 calcium polycarbophiL [Fibercon] 625 mg PO DAILY 07/15/20 Ascorbic Acid [Vitamin C] 1,000 mg PO DAILY 08/22/21 Cholecalciferol [Vitamin D3 (125 Mcg = 5000 Iu)] 125 mcg PO DAILY 08/22/21 Folic Acid 1 mg PO DAILY 08/22/21 Albuterol Inhaler [Ventolin Hfa Inhaler] 1 puff INHALATION RT-QID #8 gm 03/10/22 Cariprazine HCl [Vraylar] 3 mg PO DAILY 03/10/22 Celecoxib [CeleBREX] 200 mg PO BID PRN 03/10/22 Lidocaine 5% Patch [Lidoderm 5% Patch] 1 patch TOPICAL DAILY PRN 7 Days #7 patch 03/10/22 Naloxone [Narcan] 2 mg IM ONCE PRN 03/10/22 dexAMETHasone [Decadron] 6 mg PO DAILY 5 Days #5 tab 03/10/22 Baclofen [Lioresal] 10 mg PO BID PRN 30 Days #60 tab 06/21/22 Pregabalin [Lyrica] 100 mg PO TID 30 Days #90 cap 06/21/22 bisacodyL [Dulcolax] 5 mg PO DAILY PRN 30 Days #20 tab 06/21/22 fentaNYL 75MCG/HR PATCH [Duragesic 75MCG/HR] 1 patch TRANSDERM Q48H 30 Days #15 patch 06/21/22 fentaNYL 75MCG/HR PATCH [Duragesic 75MCG/HR] 75 mcg TRANSDERM Q48H 30 Days #15 patch 06/21/22 oxyCODONE HCL/ACETAMINOPHEN [Percocet 7.5-325 mg] 1 each PO Q8H PRN 30 Days #90 tab 06/21/22 oxyCODONE HCL/ACETAMINOPHEN [Percocet 7.5-325 mg] 1 tab PO Q8H PRN 30 Days #90 tab 06/21/22 Controlled Substance Measures - Controlled Substance Measures Is patient prescribed a controlled substance at discharge?: Yes When asked, does pt state using other controlled substances?: No If prescribed controlled substance>3 days was MAPS reviewed?: Yes If Rx opioid, was Start Talking consent form obtained?: Yes Was information provided regarding opioid addiction?: Yes
== END ==
LOC: PNWHC3 12:52
PROVIDERS: ATTEND Specialist
DX: M47.816 Spondylosis without myelopathy or radiculopathy, lumbar region (principal); M51.36 Other intervertebral disc degeneration, lumbar region; G89.29 Other chronic pain; Z79.891 Long term (current) use of opiate analgesic
CPT/HCPCS: 80307; 99212; G0482

== ENCOUNTER → 2022-08-16 | Outpatient (CLI) | payer BC ==
[2022-08-16 13:24] VITALS: BP 130/77; PULSE 61; RESP 18; TEMP 98.3
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
== END ==
LOC: PNWHC3 12:50
PROVIDERS: ATTEND Specialist
DX: M47.816 Spondylosis without myelopathy or radiculopathy, lumbar region (principal); M51.36 Other intervertebral disc degeneration, lumbar region; G89.29 Other chronic pain; Z79.891 Long term (current) use of opiate analgesic
CPT/HCPCS: 99211

== ENCOUNTER → 2022-10-11 | Outpatient (CLI) | payer BC ==
[2022-10-11 13:35] VITALS: BP 124/81; PULSE 58; RESP 18
--- NOTE | 2022-10-11 14:59 | P.PAINPG ---
PQRS Measure Charge Sheet Comment: A 56 yr old male with a history of severe and chronic LBP secondary to lumbar DDD and spondylosis with facet arthropathy without myelopathy presents today for medication refills. Pain level is provoked at 6/10 in intensity, constant, localized in the L lumbar spine, achy/ sharp in character w shooting towards the L buttock and LLE. Pain is provoked by laying supine, standing/ sitting for periods of 30 min or more. Pain is alleviated with medications, topical, PT years ago, heat, ice, repositioning and rest. Patient is currently on Percocet, Fentanyl patches, Lyrica, Baclofen, Dulcolax, Ibu Patient denies any side effects of the medication(s), denies excessive drowsiness or sleepiness, denies suicidal ideation and reports that the current pain medication is helping to control the pain and improve activities of daily living. Patient denies any motor or sensory deficits. Patient denies any fever or night sweats, denies any change in the bowel movements or urination. Physical Examination: -Constitutional: Cooperative. Not in acute distress . - Neurologic: Cranial nerve II to XII intact. No focal neurological deficits. - Psychatric: Alert & oriented x 3. Matching mood & appropriate affect. Judgment and insight intact. - Musculoskeletal: Cervical spine: Muscle bulk/ tone/ strength in the bilateral upper extremities normal Vertebral body tenderness to palpation over Spurling test positive Distraction test positive Facet loading test positive TTP Thoracic spine Muscle bulk / tone/ strength in the bilateral paraspinal muscles normal Vertebral body tender to palpation over Facet loading test positive TTP Lumbar spine: Motor bulk/ tone/ strength lower extremities , thigh and legs : 5/5 Deep tendon reflexes : Normal Knee Jerk. Normal Ankle Jerk . Vertebral body tenderness to palpation over L3, L4, L5 Lumbar Facet Loading Test positive Straight Leg Raise: positive at 30 degrees right side/ left side Gaenslen's Test positive Sacral spine : Severe tenderness over the Sacroiliac joint: right side / left side Range of motion: Flexion of the lumbar spine <60 degrees Range of motion: Extension of the lumbar spine <20 degrees Gaenslen's Test positive right side / left side Jesus test: positive right side / left side Thigh Thrust Test positive right side / left side Sacral Thrust Test positive right side / left side Assessment and plan: Chronic LBP secondary to lumbar DDD, spondylosis with facet arthropathy without myelopathy Chronic and current use of high-risk medication (Opioids). The patient was counseled about risk of opioid use, psychological risk associated with opioids and was orally counseled to not overuse , divert or sell medications. Pt is to store medication in a safe location. The patient is counseled against driving while using narcotic medications and also not to use alcohol or any illicit recreational drugs. Patient verbalized understanding that the lack of compliance will result in failure to renew narcotic prescription(s) as well as possible discharge from the clinic Diagnoses, prognosis and treatment options including but not limited to physical therapy, surgical interventions, interventional therapies and medication management including narcotics and adjuvant medication were discussed. All patient questions answered MAPS reviewed and it was appropriate. Prescription refill for Percocet, Fentanyl patches, Lyrica, Baclofen, Dulcolax w 1 RF I have spent less than 30 minutes on patient care today. Dr Pate was available by phone for the evaluation of this patient. The time was used to review the medical records including relevant urine studies and Prescription history (MAPs), review of the available imaging, evaluation and examination of the patient, coordination of care with the medical staff and if applicable referring physicians, as well as creation of the medical record PQRS Narrative: Smoking Status Never smoker Narcotic Agreement Date Signed 03/01/22 Hx Alcohol Use (MH) No Home Medications: Ambulatory Orders Furosemide [Lasix] 20 mg PO DAILY 09/20/14 traZODone HCL [Desyrel] 300 mg PO HS 09/20/17 Potassium Chloride [Klor-Con 20] 20 meq PO DAILY 09/17/19 Multivitamins, Thera [Multivitamin (formulary)] 1 tab PO DAILY 02/04/20 calcium polycarbophiL [Fibercon] 625 mg PO DAILY 07/15/20 Ascorbic Acid [Vitamin C] 1,000 mg PO DAILY 08/22/21 Cholecalciferol [Vitamin D3 (125 Mcg = 5000 Iu)] 125 mcg PO DAILY 08/22/21 Folic Acid 1 mg PO DAILY 08/22/21 Albuterol Inhaler [Ventolin Hfa Inhaler] 1 puff INHALATION RT-QID #8 gm 03/10/22 Cariprazine HCl [Vraylar] 3 mg PO DAILY 03/10/22 Celecoxib [CeleBREX] 200 mg PO BID PRN 03/10/22 Lidocaine 5% Patch [Lidoderm 5% Patch] 1 patch TOPICAL DAILY PRN 7 Days #7 patch 03/10/22 Naloxone [Narcan] 2 mg IM ONCE PRN 03/10/22 dexAMETHasone [Decadron] 6 mg PO DAILY 5 Days #5 tab 03/10/22 Pregabalin [Lyrica] 100 mg PO TID 30 Days #90 cap 10/04/22 Baclofen [Lioresal] 10 mg PO BID PRN 30 Days #60 tab 10/11/22 Pregabalin [Lyrica] 100 mg PO TID 30 Days #90 cap 10/11/22 bisacodyL [Dulcolax] 5 mg PO DAILY PRN 30 Days #20 tab 10/11/22 fentaNYL 75MCG/HR PATCH [Duragesic 75MCG/HR] 75 mcg TRANSDERM Q48H 30 Days #15 patch 10/11/22 fentaNYL 75MCG/HR PATCH [Duragesic 75MCG/HR] 75 patch TRANSDERM Q48H 30 Days #15 patch 10/11/22 oxyCODONE HCL/ACETAMINOPHEN [Percocet 7.5-325 mg] 1 each PO Q8H PRN 30 Days #90 tab 10/11/22 oxyCODONE HCL/ACETAMINOPHEN [Percocet 7.5-325 mg] 1 tab PO Q8H PRN 30 Days #90 tab 10/11/22 Controlled Substance Measures - Controlled Substance Measures Is patient prescribed a controlled substance at discharge?: Yes
== END ==
LOC: PNWHC3 12:42
PROVIDERS: ATTEND Specialist
DX: M47.816 Spondylosis without myelopathy or radiculopathy, lumbar region (principal); M51.36 Other intervertebral disc degeneration, lumbar region; G89.29 Other chronic pain; Z79.891 Long term (current) use of opiate analgesic
CPT/HCPCS: 99211

== ENCOUNTER → 2022-12-06 | Outpatient (CLI) | payer BC ==
[2022-12-06 14:07] VITALS: BP 111/73; PULSE 62; RESP 18; TEMP 98.1
== END ==
LOC: PNWHC3 12:34
PROVIDERS: ATTEND Specialist
DX: M51.36 Other intervertebral disc degeneration, lumbar region (principal); M46.1 Sacroiliitis, not elsewhere classified
CPT/HCPCS: 99211

== ENCOUNTER → 2022-12-10 | Outpatient (CLI) | payer BC ==
--- NOTE | 2022-12-11 00:16 | MR ---
EXAMINATION TYPE: MR lumbar spine wo con DATE OF EXAM: 12/10/2022 COMPARISON: 11/03/2016 HISTORY: Low back pain that radiates down left leg. CONTRAST: 0 mL intravenous Gadavist. TECHNIQUE: Multiplanar, multisequence images of the lumbar spine were acquired. FINDINGS: Cord terminates at the L1 level. Vertebral body heights and disc heights appear preserved. Disc desiccation is present L4-5. L5-S1: No significant disc bulge or disc herniation. No spinal canal stenosis. No foraminal stenosi s. L4-L5: No significant disc bulge or disc herniation. No spinal canal stenosis. No foraminal stenosi s. Facet hypertrophy and ligamentum flavum laxity has posterior lateral thecal sac compression. No s tenosis is present. There is a minimal grade 1 spondylolisthesis of L4 anteriorly on L5. This is sta ble from comparison L3-L4: No significant disc bulge or disc herniation. No spinal canal stenosis. No foraminal stenosi s. Mild facet hypertrophy is present without significant posterior lateral thecal sac compression. No stenosis is present. L2-L3: No significant disc bulge or disc herniation. No spinal canal stenosis. No foraminal stenosi s. L1-L2: No significant disc bulge or disc herniation. No spinal canal stenosis. No foraminal stenosi s. T12-L1: No significant disc bulge or disc herniation. No spinal canal stenosis. No foraminal stenos is. IMPRESSION: 1. Mild degenerative disc changes L4-5 with mild anterior thecal sac compression. The minimal grade 1 spondylolisthesis appears stable. 2. Facet hypertrophy L4-5 and to a lesser degree L3-4. Some posterior lateral thecal sac compression at L4-5 is present.
== END | disposition home or self-care (01) ==
LOC: RADMRIMAIN 18:46
PROVIDERS: ATTEND Neurological Surgery
DX: M48.07 Spinal stenosis, lumbosacral region (principal); M51.36 Other intervertebral disc degeneration, lumbar region; M43.16 Spondylolisthesis, lumbar region
CPT/HCPCS: 72148

== ENCOUNTER → 2023-01-31 | Outpatient (CLI) | payer BC ==
[2023-01-31 13:27] VITALS: BP 118/74; PULSE 56; RESP 18; TEMP 98.4
--- NOTE | 2023-01-31 14:42 | P.PAINPG ---
PQRS Measure Charge Sheet Comment: A 57 yr old male with a history of severe and chronic LBP secondary to lumbar DDD and spondylosis with facet arthropathy without myelopathy presents today for medication refills. Pain level is provoked at 6 /10 in intensity, constant, localized in the lumbar spine, burning in character w/o shooting pain. Pain is provoked by sitting/ standing/ walking for periods of 15 min or more. Pain is alleviated with medications, heat, ice, PT in 2019, repositioning and rest. PT was years ago but he follows a physician guided exercise regimen every other day since 2019 at home. Patient is currently on Fentanyl 75 mcg/hr #15, Percocet 7.5/325mg #90, Lyrica 100mg #90, BioFreeze gel Patient denies any side effects of the medication(s), denies excessive drowsiness or sleepiness, denies suicidal ideation and reports that the current pain medication is helping to control the pain and improve activities of daily living. Patient denies any motor or sensory deficits. Patient denies any fever or night sweats, denies any change in the bowel movements or urination. Physical Examination: -Constitutional: Cooperative. Not in acute distress . - Neurologic: Cranial nerve II to XII intact. No focal neurological deficits. - Psychatric: Alert & oriented x 3. Matching mood & appropriate affect. Judgment and insight intact. - Musculoskeletal: Cervical spine: Muscle bulk/ tone/ strength in the bilateral upper extremities normal Vertebral body tenderness to palpation over Spurling test positive Distraction test positive Facet loading test positive TTP Thoracic spine Muscle bulk / tone/ strength in the bilateral paraspinal muscles normal Vertebral body tender to palpation over Facet loading test positive TTP Lumbar spine: Motor bulk/ tone/ strength lower extremities , thigh and legs : 5/5 Deep tendon reflexes : Normal Knee Jerk. Normal Ankle Jerk . Vertebral body tenderness to palpation over L5 Castaneda Test positive Lumbar Facet Loading Test positive Straight Leg Raise: positive at 30 degrees right side/ left side Gaenslen's Test positive Sacral spine : Severe tenderness over the Sacroiliac joint: right side / left side Range of motion: Flexion of the lumbar spine <60 degrees Range of motion: Extension of the lumbar spine <20 degrees Gaenslen's Test positive right side / left side Jesus test: positive right side / left side Thigh Thrust Test positive right side / left side Sacral Thrust Test positive right side / left side Assessment and plan: Chronic LBP secondary to lumbar DDD, spondylosis with facet arthropathy without myelopathy Chronic and current use of high-risk medication (Opioids). The patient was counseled about risk of opioid use, psychological risk associated with opioids and was orally counseled to not overuse , divert or sell medications. Pt is to store medication in a safe location. The patient is counseled against driving while using narcotic medications and also not to use alcohol or any illicit recreational drugs. Patient verbalized understanding that the lack of compliance will result in failure to renew narcotic prescription(s) as well as possible discharge from the clinic Diagnoses, prognosis and treatment options including but not limited to physical therapy, surgical interventions, interventional therapies and medication management including narcotics and adjuvant medication were discussed. All patient questions answered MAPS reviewed and it was appropriate. UDS collected today and narcotic/ opiate agreement updated today 01/31/23. Prescription refill for Fentanyl 75 mcg/hr #15, Percocet 7.5/325mg #90, Lyrica 100mg #90 w 1 RF I have spent less than 30 minutes on patient care today. Dr Pate was available by phone for the evaluation of this patient. The time was used to review the medical records including relevant urine studies and Prescription history (MAPs), review of the available imaging, evaluation and examination of the patient, coordination of care with the medical staff and if applicable referring physicians, as well as creation of the medical record PQRS Narrative: Smoking Status Never smoker Narcotic Agreement Date Signed 03/01/22 Hx Alcohol Use (MH) No Home Medications: Ambulatory Orders Furosemide [Lasix] 20 mg PO DAILY 09/20/14 traZODone HCL [Desyrel] 300 mg PO HS 09/20/17 Potassium Chloride [Klor-Con 20] 20 meq PO DAILY 09/17/19 Multivitamins, Thera [Multivitamin (formulary)] 1 tab PO DAILY 02/04/20 calcium polycarbophiL [Fibercon] 625 mg PO DAILY 07/15/20 Ascorbic Acid [Vitamin C] 1,000 mg PO DAILY 08/22/21 Cholecalciferol [Vitamin D3 (125 Mcg = 5000 Iu)] 125 mcg PO DAILY 08/22/21 Folic Acid 1 mg PO DAILY 08/22/21 Albuterol Inhaler [Ventolin Hfa Inhaler] 1 puff INHALATION RT-QID #8 gm 03/10/22 Cariprazine HCl [Vraylar] 3 mg PO DAILY 03/10/22 Celecoxib [CeleBREX] 200 mg PO BID PRN 03/10/22 Lidocaine 5% Patch [Lidoderm 5% Patch] 1 patch TOPICAL DAILY PRN 7 Days #7 patch 03/10/22 Naloxone [Narcan] 2 mg IM ONCE PRN 03/10/22 dexAMETHasone [Decadron] 6 mg PO DAILY 5 Days #5 tab 03/10/22 Baclofen [Lioresal] 10 mg PO BID PRN 30 Days #60 tab 10/11/22 bisacodyL [Dulcolax] 5 mg PO DAILY PRN 30 Days #20 tab 10/11/22 Pregabalin [Lyrica] 100 mg PO TID 30 Days #90 cap 12/06/22 Pregabalin [Lyrica] 100 mg PO TID 30 Days #90 cap 01/31/23 fentaNYL 75MCG/HR PATCH [Duragesic 75MCG/HR] 75 mcg TRANSDERM Q48H 30 Days #15 patch 01/31/23 fentaNYL 75MCG/HR PATCH [Duragesic 75MCG/HR] 75 patch TRANSDERM Q48H 30 Days #15 patch 01/31/23 oxyCODONE HCL/ACETAMINOPHEN [Percocet 7.5-325 mg] 1 each PO Q8H PRN 30 Days #90 tab 01/31/23 oxyCODONE HCL/ACETAMINOPHEN [Percocet 7.5-325 mg] 1 tab PO Q8H PRN 30 Days #90 tab 01/31/23 Controlled Substance Measures - Controlled Substance Measures Is patient prescribed a controlled substance at discharge?: Yes When asked, does pt state using other controlled substances?: Yes If prescribed controlled substance>3 days was MAPS reviewed?: Yes If Rx opioid, was Start Talking consent form obtained?: Yes Was information provided regarding opioid addiction?: Yes
== END ==
LOC: PNWHC3 12:37
PROVIDERS: ATTEND Specialist
DX: M51.36 Other intervertebral disc degeneration, lumbar region (principal); M47.816 Spondylosis without myelopathy or radiculopathy, lumbar region; G89.29 Other chronic pain; Z79.891 Long term (current) use of opiate analgesic
CPT/HCPCS: 99212

== ENCOUNTER → 2023-03-30 | Outpatient (CLI) | payer BC ==
[2023-03-30 13:58] VITALS: BP 117/73; PULSE 56; RESP 16; TEMP 98.5
--- NOTE | 2023-03-30 15:36 | P.PAINPG ---
PQRS Measure Charge Sheet Comment: A 57 yr old male with a history of severe and chronic LBP secondary to lumbar DDD and spondylosis with facet arthropathy without myelopathy presents today for medication refills. Pain level is provoked at 6 /10 in intensity, constant, localized in the lumbar spine, burning in character w/o shooting pain. Pain is provoked by sitting/ standing/ walking for periods of 15 min or more. Pain is alleviated with medications, heat, ice, PT in 2019, repositioning and rest. PT was years ago but he follows a physician guided exercise regimen every other day since 2019 at home. Patient is currently on Fentanyl 75 mcg/hr #15, Percocet 7.5/325mg #90, Lyrica 100mg #90, BioFreeze gel Patient denies any side effects of the medication(s), denies excessive drowsiness or sleepiness, denies suicidal ideation and reports that the current pain medication is helping to control the pain and improve activities of daily living. Patient denies any motor or sensory deficits. Patient denies any fever or night sweats, denies any change in the bowel movements or urination. Physical Examination: -Constitutional: Cooperative. Not in acute distress . - Neurologic: Cranial nerve II to XII intact. No focal neurological deficits. - Psychatric: Alert & oriented x 3. Matching mood & appropriate affect. Judgment and insight intact. - Musculoskeletal: Cervical spine: Muscle bulk/ tone/ strength in the bilateral upper extremities normal Vertebral body tenderness to palpation over Spurling test positive Distraction test positive Facet loading test positive TTP Thoracic spine Muscle bulk / tone/ strength in the bilateral paraspinal muscles normal Vertebral body tender to palpation over Facet loading test positive TTP Lumbar spine: Motor bulk/ tone/ strength lower extremities , thigh and legs : 5/5 Deep tendon reflexes : Normal Knee Jerk. Normal Ankle Jerk . Vertebral body tenderness to palpation over L5 Castaneda Test positive Lumbar Facet Loading Test positive Straight Leg Raise: positive at 30 degrees right side/ left side Gaenslen's Test positive Sacral spine : Severe tenderness over the Sacroiliac joint: right side / left side Range of motion: Flexion of the lumbar spine <60 degrees Range of motion: Extension of the lumbar spine <20 degrees Gaenslen's Test positive right side / left side Jesus test: positive right side / left side Thigh Thrust Test positive right side / left side Sacral Thrust Test positive right side / left side Assessment and plan: Chronic LBP secondary to lumbar DDD, spondylosis with facet arthropathy without myelopathy Chronic and current use of high-risk medication (Opioids). The patient was counseled about risk of opioid use, psychological risk associated with opioids and was orally counseled to not overuse , divert or sell medications. Pt is to store medication in a safe location. The patient is counseled against driving while using narcotic medications and also not to use alcohol or any illicit recreational drugs. Patient verbalized understanding that the lack of compliance will result in failure to renew narcotic prescription(s) as well as possible discharge from the clinic Diagnoses, prognosis and treatment options including but not limited to physical therapy, surgical interventions, interventional therapies and medication management including narcotics and adjuvant medication were discussed. All patient questions answered MAPS reviewed and it was appropriate. UDS from 01/31/23 reviewed and consistent. Narcotic/ opiate agreement updated 01/31/23. Prescription refill for Fentanyl 75 mcg/hr #15, Percocet 7.5/325mg #90, Lyrica 100mg #90 w 1 RF I have spent less than 30 minutes on patient care today. Dr Pate was available by phone for the evaluation of this patient. The time was used to review the medical records including relevant urine studies and Prescription history (MAPs), review of the available imaging, evaluation and examination of the patient, coordination of care with the medical staff and if applicable ref erring physicians, as well as creation of the medical record PQRS Narrative: Smoking Status Never smoker Narcotic Agreement Date Signed 03/01/22 Hx Alcohol Use (MH) No Home Medications: Ambulatory Orders Furosemide [Lasix] 20 mg PO DAILY 09/20/14 traZODone HCL [Desyrel] 300 mg PO HS 09/20/17 Potassium Chloride [Klor-Con 20] 20 meq PO DAILY 09/17/19 Multivitamins, Thera [Multivitamin (formulary)] 1 tab PO DAILY 02/04/20 calcium polycarbophiL [Fibercon] 625 mg PO DAILY 07/15/20 Ascorbic Acid [Vitamin C] 1,000 mg PO DAILY 08/22/21 Cholecalciferol [Vitamin D3 (125 Mcg = 5000 Iu)] 125 mcg PO DAILY 08/22/21 Folic Acid 1 mg PO DAILY 08/22/21 Albuterol Inhaler [Ventolin Hfa Inhaler] 1 puff INHALATION RT-QID #8 gm 03/10/22 Cariprazine HCl [Vraylar] 3 mg PO DAILY 03/10/22 Celecoxib [CeleBREX] 200 mg PO BID PRN 03/10/22 Lidocaine 5% Patch [Lidoderm 5% Patch] 1 patch TOPICAL DAILY PRN 7 Days #7 patch 03/10/22 Naloxone [Narcan] 2 mg IM ONCE PRN 03/10/22 dexAMETHasone [Decadron] 6 mg PO DAILY 5 Days #5 tab 03/10/22 bisacodyL [Dulcolax] 5 mg PO DAILY PRN 30 Days #20 tab 10/11/22 Pregabalin [Lyrica] 100 mg PO TID 30 Days #90 cap 12/06/22 Baclofen [Lioresal] 10 mg PO BID PRN 30 Days #60 tab 03/30/23 Pregabalin [Lyrica] 100 mg PO TID 30 Days #90 cap 03/30/23 fentaNYL 75MCG/HR PATCH [Duragesic 75MCG/HR] 75 mcg TRANSDERM Q48H 30 Days #15 patch 03/30/23 fentaNYL 75MCG/HR PATCH [Duragesic 75MCG/HR] 75 patch TRANSDERM Q48H 30 Days #15 patch 03/30/23 oxyCODONE HCL/ACETAMINOPHEN [Percocet 7.5-325 mg] 1 each PO Q8H PRN 30 Days #90 tab 03/30/23 oxyCODONE HCL/ACETAMINOPHEN [Percocet 7.5-325 mg] 1 tab PO Q8H PRN 30 Days #90 tab 03/30/23 Controlled Substance Measures - Controlled Substance Measures Is patient prescribed a controlled substance at discharge?: Yes When asked, does pt state using other controlled substances?: No If prescribed controlled substance>3 days was MAPS reviewed?: Yes
== END ==
LOC: PNWHC3 13:10
PROVIDERS: ATTEND Specialist
DX: M51.36 Other intervertebral disc degeneration, lumbar region (principal); M47.816 Spondylosis without myelopathy or radiculopathy, lumbar region; G89.29 Other chronic pain; Z79.891 Long term (current) use of opiate analgesic
CPT/HCPCS: 99211

== ENCOUNTER → 2023-03-30 | Outpatient (CLI) | payer BC ==
[2023-03-30 15:16] LABS: Appearance,Urine Clear (Clear); Bilirubin,Urine Negative (Negative); Blood,Urine Negative (Negative); Color,Urine Light Yellow; Glucose,Urine (UA) Negative (Negative); Ketones,Urine 1+ (Negative); Leukocyte Esterase,Urine Negative (Negative); Nitrite,Urine Negative (Negative); Protein,Urine Negative (Negative); Specific Gravity,Urine 1.009 (1.001-1.035); Urobilinogen,Urine <2.0 mg/dL (<2.0)
[2023-03-30 20:22] LABS: Blood Urea Nitrogen 13.5 mg/dL (9.0-27.0); Calcium 9.4 mg/dL (8.7-10.3); Carbon Dioxide 24.4 mmol/L (21.6-31.8); Chloride 99 mmol/L (96-109); Glucose 93 mg/dL (70-110); Potassium 4.5 mmol/L (3.5-5.5); Sodium 138 mmol/L (135-145)
[2023-03-30 21:42] LABS: HCT 41.4 % (39.6-50.0); HGB 13.3 d/dL (13.0-17.0); MCH 26.5 pg (27.0-32.0); MCHC 32.1 d/dL (32.0-37.0); MCV 82.5 FL (80.0-97.0); Mean Platelet Volume 10.8 FL (9.5-12.2); NRBC Per 100 WBC 0 X 10*3/uL (0.00-0.01); Platelet Count 243 X 10*3/uL (140-440); RBC 5.02 X 10*6/uL (4.40-5.60); RDW 14.6 % (11.5-14.5); WBC 8.41 X 10*3/uL (4.50-10.00)
--- NOTE | 2023-03-30 22:19 | XR ---
EXAMINATION TYPE: XR chest 2V DATE OF EXAM: 03/30/2023 COMPARISON: 03/10/2022 INDICATION: Presurgical clearance TECHNIQUE: Frontal and lateral views of the chest are obtained. FINDINGS: The heart size is normal. The pulmonary vasculature is normal. The lungs are clear. IMPRESSION: 1. No acute pulmonary process.
== END | disposition home or self-care (01) ==
LOC: LABWHC1 13:49
PROVIDERS: ATTEND Neurological Surgery
DX: Z01.812 Encounter for preprocedural laboratory examination (principal); I49.8 Other specified cardiac arrhythmias; D64.9 Anemia, unspecified; R30.0 Dysuria; R73.09 Other abnormal glucose; R05.9 Cough, unspecified
CPT/HCPCS: 36415; 71046; 80048; 81003; 83036; 85027; 93005

== ENCOUNTER → 2023-05-25 | Outpatient (CLI) | payer BC ==
[2023-05-25 13:12] VITALS: BP 155/80; PULSE 61; RESP 16; TEMP 98.3
--- NOTE | 2023-05-25 14:58 | P.PAINPG ---
Objective - Vital Signs Vital signs: Intake & Output 05/24/23 05/25/23 05/25/23 18:59 06:59 18:59 Weight 108.862 kg PQRS Measure Charge Sheet Comment: A 57 yr old male with a history of severe and chronic LBP secondary to lumbar DDD and spondylosis with facet arthropathy without myelopathy presents today for medication refills. Pain level is provoked at 7 /10 in intensity, constant, localized in the lumbar spine, burning in character w/o shooting pain. Pain is provoked by sitting/ standing/ walking for periods of 15 min or more. Pain is alleviated with medications, heat, ice, PT in 2019, repositioning and rest. PT was years ago but he follows a physician guided exercise regimen every other day since 2019 at home. Patient is currently on Fentanyl 75 mcg/hr #15, Percocet 7.5/325mg #90, Lyrica 100mg #90, Ibu, BioFreeze gel Patient denies any side effects of the medication(s), denies excessive drowsiness or sleepiness, denies suicidal ideation and reports that the current pain medication is helping to control the pain and improve activities of daily living. Patient denies any motor or sensory deficits. Patient denies any fever or night sweats, denies any change in the bowel movements or urination. Physical Examination: -Constitutional: Cooperative. Not in acute distress . - Neurologic: Cranial nerve II to XII intact. No focal neurological deficits. - Psychatric: Alert & oriented x 3. Matching mood & appropriate affect. Judgment and insight intact. - Musculoskeletal: Cervical spine: Muscle bulk/ tone/ strength in the bilateral upper extremities normal Vertebral body tenderness to palpation over Spurling test positive Distraction test positive Facet loading test positive TTP Thoracic spine Muscle bulk / tone/ strength in the bilateral paraspinal muscles normal Vertebral body tender to palpation over Facet loading test positive TTP Lumbar spine: Motor bulk/ tone/ strength lower extremities , thigh and legs : 5/5 Deep tendon reflexes : Normal Knee Jerk. Normal Ankle Jerk . Vertebral body tenderness to palpation over L4, L5 Castaneda Test positive Lumbar Facet Loading Test positive Straight Leg Raise: positive at 30 degrees right side/ left side Gaenslen's Test positive Sacral spine : Severe tenderness over the Sacroiliac joint: right side / left side Range of motion: Flexion of the lumbar spine <60 degrees Range of motion: Extension of the lumbar spine <20 degrees Gaenslen's Test positive right side / left side Jesus test: positive right side / left side Thigh Thrust Test positive right side / left side Sacral Thrust Test positive right side / left side Assessment and plan: Chronic LBP secondary to lumbar DDD, spondylosis with facet arthropathy without myelopathy Chronic and current use of high-risk medication (Opioids). The patient was counseled about risk of opioid use, psychological risk associated with opioids and was orally counseled to not overuse , divert or sell medications. Pt is to store medication in a safe location. The patient is counseled against driving while using narcotic medications and also not to use alcohol or any illicit recreational drugs. Patient verbalized understanding that the lack of compliance will result in failure to renew narcotic prescription(s) as well as possible discharge from the clinic Diagnoses, prognosis and treatment options including but not limited to physical therapy, surgical interventions, interventional therapies and medication management including narcotics and adjuvant medication were discussed. All patient questions answered MAPS reviewed and it was appropriate. UDS from 01/31/23 reviewed and consistent. Narcotic/ opiate agreement updated 01/31/23. Prescription refill for Fentanyl 75 mcg/hr #15, Percocet 7.5/325mg #90, Lyrica 100mg #90 w 1 RF I have spent less than 30 minutes on patient care today. Dr Pate was available by phone for the evaluation of this patient. The time was used to review the medical records including relevant urine studies and Prescription history (MAPs), review of the available imaging, evaluation and examination of the patient, coordination of care with the medical staff and if applicable referring physicians, as well as creation of the medical record PQRS Narrative: Smoking Status Never smoker Narcotic Agreement Date Signed 03/01/22 Hx Alcohol Use (MH) No Home Medications: Ambulatory Orders Furosemide [Lasix] 20 mg PO DAILY 09/20/14 traZODone HCL [Desyrel] 300 mg PO HS 09/20/17 Potassium Chloride [Klor-Con 20] 20 meq PO DAILY 09/17/19 Multivitamins, Thera [Multivitamin (formulary)] 1 tab PO DAILY 02/04/20 calcium polycarbophiL [Fibercon] 625 mg PO DAILY 07/15/20 Ascorbic Acid [Vitamin C] 1,000 mg PO DAILY 08/22/21 Cholecalciferol [Vitamin D3 (125 Mcg = 5000 Iu)] 125 mcg PO DAILY 08/22/21 Folic Acid 1 mg PO DAILY 08/22/21 Albuterol Inhaler [Ventolin Hfa Inhaler] 1 puff INHALATION RT-QID #8 gm 03/10/22 Cariprazine HCl [Vraylar] 3 mg PO DAILY 03/10/22 Celecoxib [CeleBREX] 200 mg PO BID PRN 03/10/22 Lidocaine 5% Patch [Lidoderm 5% Patch] 1 patch TOPICAL DAILY PRN 7 Days #7 patch 03/10/22 Naloxone [Narcan] 2 mg IM ONCE PRN 03/10/22 dexAMETHasone [Decadron] 6 mg PO DAILY 5 Days #5 tab 03/10/22 bisacodyL [Dulcolax] 5 mg PO DAILY PRN 30 Days #20 tab 10/11/22 Pregabalin [Lyrica] 100 mg PO TID 30 Days #90 cap 12/06/22 Baclofen [Lioresal] 10 mg PO BID PRN 30 Days #60 tab 03/30/23 Pregabalin [Lyrica] 100 mg PO TID 30 Days #90 cap 03/30/23 fentaNYL 75MCG/HR PATCH [Duragesic 75MCG/HR] 75 mcg TRANSDERM Q48H 30 Days #15 patch 03/30/23 fentaNYL 75MCG/HR PATCH [Duragesic 75MCG/HR] 75 patch TRANSDERM Q48H 30 Days #15 patch 03/30/23 oxyCODONE HCL/ACETAMINOPHEN [Percocet 7.5-325 mg] 1 each PO Q8H PRN 30 Days #90 tab 03/30/23 oxyCODONE HCL/ACETAMINOPHEN [Percocet 7.5-325 mg] 1 tab PO Q8H PRN 30 Days #90 tab 03/30/23 Controlled Substance Measures - Controlled Substance Measures Is patient prescribed a controlled substance at discharge?: Yes When asked, does pt state using other controlled substances?: No If prescribed controlled substance>3 days was MAPS reviewed?: Yes
== END ==
LOC: PNWHC3 12:45
PROVIDERS: ATTEND Specialist
DX: M51.36 Other intervertebral disc degeneration, lumbar region (principal); M47.816 Spondylosis without myelopathy or radiculopathy, lumbar region; G89.29 Other chronic pain; Z79.891 Long term (current) use of opiate analgesic
CPT/HCPCS: 99211

== ENCOUNTER → 2023-07-20 | Outpatient (CLI) | payer BC ==
[2023-07-20 14:06] VITALS: BP 146/84; PULSE 59; RESP 16; TEMP 98.6
--- NOTE | 2023-07-20 14:29 | P.PAINPG ---
PQRS Measure Charge Sheet Comment: A 57 yr old male with a history of severe and chronic LBP secondary to lumbar DDD and spondylosis with facet arthropathy without myelopathy presents today for medication refills. Pain level is provoked at 7 /10 in intensity, constant, localized in the lumbar spine, predominantly axial, burning in character without shooting pain. Pain is provoked by sitting/ standing/ walking for periods of 15 min or more. Pain is alleviated with medications, alternating heat & ice, PT in 2019, repositioning and rest. PT was years ago but he follows a physician guided exercise regimen every other day since 2019 at home. Patient is currently on Fentanyl 75 mcg/hr #15, Percocet 7.5/325mg #90, Lyrica 100mg #90, Ibu, BioFreeze gel Patient denies any side effects of the medication(s), denies excessive drowsiness or sleepiness, denies suicidal ideation and reports that the current pain medication is helping to control the pain and improve activities of daily living. Patient denies any motor or sensory deficits. Patient denies any fever or night sweats, denies any change in the bowel movements or urination. Physical Examination: -Constitutional: Cooperative. Not in acute distress . - Neurologic: Cranial nerve II to XII intact. No focal neurological deficits. - Psychatric: Alert & oriented x 3. Matching mood & appropriate affect. Judgment and insight intact. - Musculoskeletal: Cervical spine: Muscle bulk/ tone/ strength in the bilateral upper extremities normal Vertebral body tenderness to palpation over Spurling test positive Distraction test positive Facet loading test positive TTP Thoracic spine Muscle bulk / tone/ strength in the bilateral paraspinal muscles normal Vertebral body tender to palpation over Facet loading test positive TTP Lumbar spine: Motor bulk/ tone/ strength lower extremities , thigh and legs : 5/5 Deep tendon reflexes : Normal Knee Jerk. Normal Ankle Jerk . Vertebral body tenderness to palpation over L4, L5 Castaneda Test positive Lumbar Facet Loading Test positive Straight Leg Raise: positive at 30 degrees right side/ left side Gaenslen's Test positive Sacral spine : Severe tenderness over the Sacroiliac joint: right side / left side Range of motion: Flexion of the lumbar spine <60 degrees Range of motion: Extension of the lumbar spine <20 degrees Gaenslen's Test positive right side / left side Jesus test: positive right side / left side Thigh Thrust Test positive right side / left side Sacral Thrust Test positive right side / left side Assessment and plan: Chronic LBP secondary to lumbar DDD, spondylosis with facet arthropathy without myelopathy Chronic and current use of high-risk medication (Opioids). The patient was counseled about risk of opioid use, psychological risk associated with opioids and was orally counseled to not overuse , divert or sell medications. Pt is to store medication in a safe location. The patient is counseled against driving while using narcotic medications and also not to use alcohol or any illicit recreational drugs. Patient verbalized understanding that the lack of compliance will result in failure to renew narcotic prescription(s) as well as possible discharge from the clinic Diagnoses, prognosis and treatment options including but not limited to physical therapy, surgical interventions, interventional therapies and medication management including narcotics and adjuvant medication were discussed. All patient questions answered MAPS reviewed and it was appropriate. UDS from 01/31/23 reviewed and consistent. Narcotic/ opiate agreement updated 01/31/23. Prescription refill for Fentanyl 75 mcg/hr #15, Percocet 7.5/325mg #90, Lyrica 100mg #90 w 1 RF. Narcan previously e-scribed to pt's pharmacy. I have spent less than 30 minutes on patient care today. Dr Pate was available by phone for the evaluation of this patient. The time was used to review the medical records including relevant urine studies and Prescription history (MAPs), review of the available imaging, evaluation and examination of the patient, coordination of care with the medical staff and if applicable referring physicians, as well as creation of the medical record PQRS Narrative: Smoking Status Never smoker Narcotic Agreement Date Signed 03/01/22 Hx Alcohol Use (MH) No Home Medications: Ambulatory Orders Furosemide [Lasix] 20 mg PO DAILY 09/20/14 traZODone HCL [Desyrel] 300 mg PO HS 09/20/17 Potassium Chloride [Klor-Con 20] 20 meq PO DAILY 09/17/19 Multivitamins, Thera [Multivitamin (formulary)] 1 tab PO DAILY 02/04/20 calcium polycarbophiL [Fibercon] 625 mg PO DAILY 07/15/20 Ascorbic Acid [Vitamin C] 1,000 mg PO DAILY 08/22/21 Cholecalciferol [Vitamin D3 (125 Mcg = 5000 Iu)] 125 mcg PO DAILY 08/22/21 Folic Acid 1 mg PO DAILY 08/22/21 Albuterol Inhaler [Ventolin Hfa Inhaler] 1 puff INHALATION RT-QID #8 gm 03/10/22 Cariprazine HCl [Vraylar] 3 mg PO DAILY 03/10/22 Celecoxib [CeleBREX] 200 mg PO BID PRN 03/10/22 Lidocaine 5% Patch [Lidoderm 5% Patch] 1 patch TOPICAL DAILY PRN 7 Days #7 patch 03/10/22 dexAMETHasone [Decadron] 6 mg PO DAILY 5 Days #5 tab 03/10/22 Baclofen [Lioresal] 10 mg PO BID PRN 30 Days #60 tab 03/30/23 Pregabalin [Lyrica] 100 mg PO TID 30 Days #90 cap 05/25/23 Naloxone [Narcan] 2 mg IM ONCE PRN 365 Days #1 each 07/07/23 Pregabalin [Lyrica] 100 mg PO TID 30 Days #90 cap 07/20/23 bisacodyL [Dulcolax] 5 mg PO DAILY PRN 30 Days #20 tab 07/20/23 fentaNYL 75MCG/HR PATCH [Duragesic 75MCG/HR] 75 mcg TRANSDERM Q48H 30 Days #15 patch 07/20/23 fentaNYL 75MCG/HR PATCH [Duragesic 75MCG/HR] 75 patch TRANSDERM Q48H 30 Days #15 patch 07/20/23 oxyCODONE HCL/ACETAMINOPHEN [Percocet 7.5-325 mg] 1 each PO Q8H PRN 30 Days #90 tab 07/20/23 oxyCODONE HCL/ACETAMINOPHEN [Percocet 7.5-325 mg] 1 tab PO Q8H PRN 30 Days #90 tab 07/20/23 Controlled Substance Measures - Controlled Substance Measures Is patient prescribed a controlled substance at discharge?: Yes When asked, does pt state using other controlled substances?: Yes If prescribed controlled substance>3 days was MAPS reviewed?: Yes
== END ==
LOC: PNWHC3 13:09
PROVIDERS: ATTEND Specialist
DX: M51.36 Other intervertebral disc degeneration, lumbar region (principal); G89.29 Other chronic pain; M47.816 Spondylosis without myelopathy or radiculopathy, lumbar region; Z79.891 Long term (current) use of opiate analgesic; Z51.81 Encounter for therapeutic drug level monitoring
CPT/HCPCS: 80307; 99212

== ENCOUNTER → 2023-09-14 | Outpatient (CLI) | payer BC ==
[2023-09-14 13:46] VITALS: BP 128/68; PULSE 74; RESP 15; TEMP 98.5
--- NOTE | 2023-09-14 14:30 | P.PAINPG ---
Objective - Vital Signs Vital signs: Intake & Output 09/13/23 09/14/23 09/14/23 18:59 06:59 18:59 Weight 108.862 kg PQRS Measure Charge Sheet Comment: A 57 yr old male with a history of severe and chronic LBP secondary to lumbar DDD and spondylosis with facet arthropathy without myelopathy presents today for medication refills. Pain level is provoked at 6 /10 in intensity, constant, localized in the lumbar spine, predominantly axial, burning in character without shooting pain. Pain is provoked by sitting/ standing/ walking for periods of 15 min or more. Pain is alleviated with medications, alternating heat & ice, PT in 2019, repositioning and rest. PT was years ago but he follows a physician guided exercise regimen every other day since 2019 at home. Patient is currently on Fentanyl 75 mcg/hr #15, Percocet 7.5/325mg #90, Lyrica 100mg #90, Ibu, BioFreeze gel Patient denies any side effects of the medication(s), denies excessive drowsiness or sleepiness, denies suicidal ideation and reports that the current pain medication is helping to control the pain and improve activities of daily living. Patient denies any motor or sensory deficits. Patient denies any fever or night sweats, denies any change in the bowel movements or urination. Physical Examination: -Constitutional: Cooperative. Not in acute distress . - Neurologic: Cranial nerve II to XII intact. No focal neurological deficits. - Psychatric: Alert & oriented x 3. Matching mood & appropriate affect. Judgment and insight intact. - Musculoskeletal: Cervical spine: Muscle bulk/ tone/ strength in the bilateral upper extremities normal Vertebral body tenderness to palpation over Spurling test positive Distraction test positive Facet loading test positive TTP Thoracic spine Muscle bulk / tone/ strength in the bilateral paraspinal muscles normal Vertebral body tender to palpation over Facet loading test positive TTP Lumbar spine: Motor bulk/ tone/ strength lower extremities , thigh and legs : 5/5 Deep tendon reflexes : Normal Knee Jerk. Normal Ankle Jerk . Vertebral body tenderness to palpation over L4, L5 Castaneda Test positive Lumbar Facet Loading Test positive Straight Leg Raise: positive at 30 degrees right side/ left side Gaenslen's Test positive Sacral spine : Severe tenderness over the Sacroiliac joint: right side / left side Range of motion: Flexion of the lumbar spine <60 degrees Range of motion: Extension of the lumbar spine <20 degrees Gaenslen's Test positive right side / left side Jesus test: positive right side / left side Thigh Thrust Test positive right side / left side Sacral Thrust Test positive right side / left side Assessment and plan: Chronic LBP secondary to lumbar DDD, spondylosis with facet arthropathy without myelopathy Chronic and current use of high-risk medication (Opioids). The patient was counseled about risk of opioid use, psychological risk associated with opioids and was orally counseled to not overuse , divert or sell medications. Pt is to store medication in a safe location. The patient is counseled against driving while using narcotic medications and also not to use alcohol or any illicit recreational drugs. Patient verbalized understanding that the lack of compliance will result in failure to renew narcotic prescription(s) as well as possible discharge from the clinic Diagnoses, prognosis and treatment options including but not limited to physical therapy, surgical interventions, interventional therapies and medication management including narcotics and adjuvant medication were discussed. All patient questions answered MAPS reviewed and it was appropriate. UDS from 07/20/23 reviewed and consistent. Narcotic/ opiate agreement updated 01/31/23. Prescription refill for Fentanyl 75 mcg/hr #15, Percocet 7.5/325mg #90, Lyrica 100mg #90 w 1 RF. Narcan previously e-scribed to pt's pharmacy. I have spent less than 30 minutes on patient care today. Dr Pate was available by phone for the evaluation of this patient. The time was used to review the medical records including relevant urine studies and Prescription history (MAPs), review of the available imaging, evaluation and examination of the patient, coordination of care with the medical staff and if applicable referring physicians, as well as creation of the medical record PQRS Narrative: Smoking Status Never smoker Narcotic Agreement Date Signed 03/01/22 Hx Alcohol Use (MH) No Home Medications: Ambulatory Orders Furosemide [Lasix] 20 mg PO DAILY 09/20/14 traZODone HCL [Desyrel] 300 mg PO HS 09/20/17 Potassium Chloride [Klor-Con 20] 20 meq PO DAILY 09/17/19 Multivitamins, Thera [Multivitamin (formulary)] 1 tab PO DAILY 02/04/20 calcium polycarbophiL [Fibercon] 625 mg PO DAILY 07/15/20 Ascorbic Acid [Vitamin C] 1,000 mg PO DAILY 08/22/21 Cholecalciferol [Vitamin D3 (125 Mcg = 5000 Iu)] 125 mcg PO DAILY 08/22/21 Folic Acid 1 mg PO DAILY 08/22/21 Albuterol Inhaler [Ventolin Hfa Inhaler] 1 puff INHALATION RT-QID #8 gm 03/10/22 Cariprazine HCl [Vraylar] 3 mg PO DAILY 03/10/22 Celecoxib [CeleBREX] 200 mg PO BID PRN 03/10/22 Lidocaine 5% Patch [Lidoderm 5% Patch] 1 patch TOPICAL DAILY PRN 7 Days #7 patch 03/10/22 dexAMETHasone [Decadron] 6 mg PO DAILY 5 Days #5 tab 03/10/22 Baclofen [Lioresal] 10 mg PO BID PRN 30 Days #60 tab 03/30/23 Pregabalin [Lyrica] 100 mg PO TID 30 Days #90 cap 05/25/23 Naloxone [Narcan] 2 mg IM ONCE PRN 365 Days #1 each 07/07/23 Pregabalin [Lyrica] 100 mg PO TID 30 Days #90 cap 07/20/23 bisacodyL [Dulcolax] 5 mg PO DAILY PRN 30 Days #20 tab 07/20/23 fentaNYL 75MCG/HR PATCH [Duragesic 75MCG/HR] 75 mcg TRANSDERM Q48H 30 Days #15 patch 07/20/23 fentaNYL 75MCG/HR PATCH [Duragesic 75MCG/HR] 75 patch TRANSDERM Q48H 30 Days #15 patch 07/20/23 oxyCODONE HCL/ACETAMINOPHEN [Percocet 7.5-325 mg] 1 each PO Q8H PRN 30 Days #90 tab 07/20/23 oxyCODONE HCL/ACETAMINOPHEN [Percocet 7.5-325 mg] 1 tab PO Q8H PRN 30 Days #90 tab 07/20/23 Controlled Substance Measures - Controlled Substance Measures Is patient prescribed a controlled substance at discharge?: Yes When asked, does pt state using other controlled substances?: No If prescribed controlled substance>3 days was MAPS reviewed?: Yes
== END ==
LOC: PNWHC3 12:31
PROVIDERS: ATTEND Specialist
DX: M51.36 Other intervertebral disc degeneration, lumbar region (principal); M47.816 Spondylosis without myelopathy or radiculopathy, lumbar region; G89.29 Other chronic pain; Z79.891 Long term (current) use of opiate analgesic
CPT/HCPCS: 99211

== ENCOUNTER → 2023-11-09 | Outpatient (CLI) | payer BC ==
[2023-11-09 13:56] VITALS: BP 132/79; PULSE 79; RESP 15; TEMP 97.4
--- NOTE | 2023-11-09 14:37 | P.PAINPG ---
PQRS Measure Charge Sheet Comment: A 58 yr old male with a history of severe and chronic LBP secondary to lumbar DDD and spondylosis with facet arthropathy without myelopathy presents today for medication refills. Pain level is provoked at 6 /10 in intensity, constant, localized in the lumbar spine, predominantly axial, burning in character without shooting pain. Pain is provoked by sitting/ standing/ walking for periods of 15 min or more. Pain is alleviated with medications, alternating heat & ice, PT in 2019, repositioning and rest. PT was years ago but he follows a physician guided home exercise regimen every other day since 2019. He would like to wean off the Fentanyl so I discussed using each patch over a 72 hr period. Pt stated he will try that but is not ready to have the quantity or dosage changed at this time. Patient is currently on Fentanyl 75 mcg/hr #15, Percocet 7.5/325mg #90, Lyrica 100mg #90, Ibu, BioFreeze gel Patient denies any side effects of the medication(s), denies excessive drowsiness or sleepiness, denies suicidal ideation and reports that the current pain medication is helping to control the pain and improve activities of daily living. Patient denies any motor or sensory deficits. Patient denies any fever or night sweats, denies any change in the bowel movements or urination. Physical Examination: -Constitutional: Cooperative. Not in acute distress . - Neurologic: Cranial nerve II to XII intact. No focal neurological deficits. - Psychatric: Alert & oriented x 3. Matching mood & appropriate affect. Judgment and insight intact. - Musculoskeletal: Cervical spine: Muscle bulk/ tone/ strength in the bilateral upper extremities normal Vertebral body tenderness to palpation over Spurling test positive Distraction test positive Facet loading test positive TTP Thoracic spine Muscle bulk / tone/ strength in the bilateral paraspinal muscles normal Vertebral body tender to palpation over Facet loading test positive TTP Lumbar spine: Motor bulk/ tone/ strength lower extremities , thigh and legs : 5/5 Deep tendon reflexes : Normal Knee Jerk. Normal Ankle Jerk . Vertebral body tenderness to palpation over L4, L5 Castaneda Test positive Lumbar Facet Loading Test positive Straight Leg Raise: positive at 30 degrees right side/ left side Gaenslen's Test positive Sacral spine : Severe tenderness over the Sacroiliac joint: right side / left side Range of motion: Flexion of the lumbar spine <60 degrees Range of motion: Extension of the lumbar spine <20 degrees Gaenslen's Test positive right side / left side Jesus test: positive right side / left side Thigh Thrust Test positive right side / left side Sacral Thrust Test positive right side / left side Assessment and plan: Chronic LBP secondary to lumbar DDD, spondylosis with facet arthropathy without myelopathy Chronic and current use of high-risk medication (Opioids). The patient was counseled about risk of opioid use, psychological risk associated with opioids and was orally counseled to not overuse , divert or sell medications. Pt is to store medication in a safe location. The patient is counseled against driving while using narcotic medications and also not to use alcohol or any illicit recreational drugs. Patient verbalized understanding that the lack of compliance will result in failure to renew narcotic prescription(s) as well as possible discharge from the clinic Diagnoses, prognosis and treatment options including but not limited to physical therapy, surgical interventions, interventional therapies and medication management including narcotics and adjuvant medication were discussed. All patient questions answered MAPS reviewed and it was appropriate. UDS from 07/20/23 reviewed and consistent. Narcotic/ opiate agreement updated 01/31/23. Prescription refill for Fentanyl 75 mcg/hr #15, Percocet 7.5/325mg #90, Lyrica 100mg #90, Dulcolax w 1 RF. Narcan previously e-scribed to pt's pharmacy. I have spent less than 30 minutes on patient care today. Dr Pate was available by phone for the evaluation of this patient. The time was used to review the medical records including relevant urine studies and Prescription history (MAPs), review of the available imaging, evaluation and examination of the patient, coordination of care with the medical staff and if applicable referring physicians, as well as creation of the medical record PQRS Narrative: Smoking Status Never smoker Narcotic Agreement Date Signed 07/20/23 Hx Alcohol Use (MH) No Home Medications: Ambulatory Orders Furosemide [Lasix] 20 mg PO DAILY 09/20/14 traZODone HCL [Desyrel] 300 mg PO HS 09/20/17 Potassium Chloride [Klor-Con 20] 20 meq PO DAILY 09/17/19 Multivitamins, Thera [Multivitamin (formulary)] 1 tab PO DAILY 02/04/20 calcium polycarbophiL [Fibercon] 625 mg PO DAILY 07/15/20 Ascorbic Acid [Vitamin C] 1,000 mg PO DAILY 08/22/21 Cholecalciferol [Vitamin D3 (125 Mcg = 5000 Iu)] 125 mcg PO DAILY 08/22/21 Folic Acid 1 mg PO DAILY 08/22/21 Albuterol Inhaler [Ventolin Hfa Inhaler] 1 puff INHALATION RT-QID #8 gm 03/10/22 Cariprazine HCl [Vraylar] 3 mg PO DAILY 03/10/22 Celecoxib [CeleBREX] 200 mg PO BID PRN 03/10/22 Lidocaine 5% Patch [Lidoderm 5% Patch] 1 patch TOPICAL DAILY PRN 7 Days #7 patch 03/10/22 dexAMETHasone [Decadron] 6 mg PO DAILY 5 Days #5 tab 03/10/22 Baclofen [Lioresal] 10 mg PO BID PRN 30 Days #60 tab 03/30/23 Pregabalin [Lyrica] 100 mg PO TID 30 Days #90 cap 07/20/23 bisacodyL [Dulcolax] 5 mg PO DAILY PRN 30 Days #20 tab 07/20/23 Pregabalin [Lyrica] 100 mg PO TID 30 Days #90 cap 09/14/23 fentaNYL 75MCG/HR PATCH [Duragesic 75MCG/HR] 75 mcg TRANSDERM Q48H 30 Days #15 patch 09/14/23 fentaNYL 75MCG/HR PATCH [Duragesic 75MCG/HR] 75 patch TRANSDERM Q48H 30 Days #15 patch 09/14/23 oxyCODONE HCL/ACETAMINOPHEN [Percocet 7.5-325 mg] 1 each PO Q8H PRN 30 Days #90 tab 09/14/23 oxyCODONE HCL/ACETAMINOPHEN [Percocet 7.5-325 mg] 1 tab PO Q8H PRN 30 Days #90 tab 09/14/23 Naloxone HCl 4 mg NS DAILY PRN 365 Days #1 each 09/15/23 Controlled Substance Measures - Controlled Substance Measures Is patient prescribed a controlled substance at discharge?: Yes When asked, does pt state using other controlled substances?: Yes If prescribed controlled substance>3 days was MAPS reviewed?: Yes
== END ==
LOC: PNWHC3 12:50
PROVIDERS: ATTEND Specialist
DX: M51.36 Other intervertebral disc degeneration, lumbar region (principal); M47.816 Spondylosis without myelopathy or radiculopathy, lumbar region; G89.29 Other chronic pain; Z79.891 Long term (current) use of opiate analgesic
CPT/HCPCS: 99211

== ENCOUNTER → 2024-01-04 | Outpatient (CLI) | payer BC ==
[2024-01-04 12:55] VITALS: BP 109/73; PULSE 80; RESP 26
--- NOTE | 2024-01-04 14:50 | P.PAINPG ---
Objective - Vital Signs Vital signs: Vital Signs Temp Pulse 80 01/04/24 12:53 Resp 26 H 01/04/24 12:53 BP 109/73 01/04/24 12:53 Pulse Ox 95 01/04/24 12:53 FiO2 Intake & Output 01/03/24 01/04/24 01/04/24 18:59 06:59 18:59 Weight 113.398 kg PQRS Measure Charge Sheet Mode of Arrival: Ambulatory History and Exam Findings: All other causes of pain ruled out Comment: A 58 yr old male with a history of severe and chronic LBP secondary to lumbar DDD and spondylosis with facet arthropathy without myelopathy presents today for medication refills. Pain level is provoked at 5 /10 in intensity, constant, localized in the lumbar spine, predominantly axial, burning in character without shooting pain. Pain is provoked by sitting/ standing/ walking for periods > 15 min. Pain is alleviated with medications, alternating heat & ice, PT in 2019, repositioning and rest. PT was years ago but he follows a physician guided home exercise regimen every other day since 2019. Patient is currently on Fentanyl 75 mcg/hr #15, Percocet 7.5/325mg #90, Lyrica 100mg #90, Ibu, BioFreeze gel Patient denies any side effects of the medication(s), denies excessive drowsiness or sleepiness, denies suicidal ideation and reports that the current pain medication is helping to control the pain and improve activities of daily living. Patient denies any motor or sensory deficits. Patient denies any fever or night sweats, denies any change in the bowel movements or urination. Physical Examination: -Constitutional: Cooperative. Not in acute distress . - Neurologic: Cranial nerve II to XII intact. No focal neurological deficits. - Psychatric: Alert & oriented x 3. Matching mood & appropriate affect. Judgment and insight intact. - Musculoskeletal: Cervical spine: Muscle bulk/ tone/ strength in the bilateral upper extremities normal Vertebral body tenderness to palpation over Spurling test positive Distraction test positive Facet loading test positive TTP Thoracic spine Muscle bulk / tone/ strength in the bilateral paraspinal muscles normal Vertebral body tender to palpation over Facet loading test positive TTP Lumbar spine: Motor bulk/ tone/ strength lower extremities , thigh and legs : 5/5 Deep tendon reflexes : Normal Knee Jerk. Normal Ankle Jerk . Vertebral body tenderness to palpation over L4, L5 Castaneda Test positive Lumbar Facet Loading Test positive Straight Leg Raise: positive at 30 degrees right side/ left side Gaenslen's Test positive Sacral spine : Severe tenderness over the Sacroiliac joint: right side / left side Range of motion: Flexion of the lumbar spine <60 degrees Range of motion: Extension of the lumbar spine <20 degrees Gaenslen's Test positive right side / left side Jesus test: positive right side / left side Thigh Thrust Test positive right side / left side Sacral Thrust Test positive right side / left side Assessment and plan: Chronic LBP secondary to lumbar DDD, spondylosis with facet arthropathy without myelopathy Chronic and current use of high-risk medication (Opioids). The patient was counseled about risk of opioid use, psychological risk associated with opioids and was orally counseled to not overuse , divert or sell medications. Pt is to store medication in a safe location. The patient is counseled against driving while using narcotic medications and also not to use alcohol or any illicit recreational drugs. Patient verbalized understanding that the lack of compliance will result in failure to renew narcotic prescription(s) as well as possible discharge from the clinic Diagnoses, prognosis and treatment options including but not limited to physical therapy, surgical interventions, interventional therapies and medication management including narcotics and adjuvant medication were discussed. All patient questions answered MAPS reviewed and it was appropriate. UDS from 07/20/23 reviewed and consistent. Narcotic/ opiate agreement updated 01/31/23. Prescription refill for Fentanyl 75 mcg/hr #15, Percocet 7.5/325mg #90, Lyrica 100mg #90, Dulcolax w 1 RF. Narcan previously e-scribed to pt's pharmacy. I have spent less than 30 minutes on patient care today. Dr Pate was available by phone for the evaluation of this patient. The time was used to review the medical records including relevant urine studies and Prescription history (MAPs), review of the available imaging, evaluation and examination of the patient, coordination of care with the medical staff and if applicable referring physicians, as well as creation of the medical record PQRS Narrative: Smoking Status Never smoker Narcotic Agreement Date Signed 07/20/23 Blood Pressure 109/73 Scale Used Numeric (1 - 10) Hx Alcohol Use (MH) No Home Medications: Ambulatory Orders Furosemide [Lasix] 20 mg PO DAILY 03/06/15 traZODone HCL [Desyrel] 300 mg PO HS 09/20/17 Potassium Chloride [Klor-Con 20] 20 meq PO DAILY 09/17/19 Multivitamins, Thera [Multivitamin (formulary)] 1 tab PO DAILY 02/04/20 calcium polycarbophiL [Fibercon] 625 mg PO DAILY 07/15/20 Ascorbic Acid [Vitamin C] 1,000 mg PO DAILY 08/22/21 Cholecalciferol [Vitamin D3 (125 Mcg = 5000 Iu)] 125 mcg PO DAILY 08/22/21 Folic Acid 1 mg PO DAILY 08/22/21 Albuterol Inhaler [Ventolin Hfa Inhaler] 1 puff INHALATION RT-QID #8 gm 03/10/22 Cariprazine HCl [Vraylar] 3 mg PO DAILY 03/10/22 Celecoxib [CeleBREX] 200 mg PO BID PRN 03/10/22 Lidocaine 5% Patch [Lidoderm 5% Patch] 1 patch TOPICAL DAILY PRN 7 Days #7 patch 03/10/22 dexAMETHasone [Decadron] 6 mg PO DAILY 5 Days #5 tab 03/10/22 Baclofen [Lioresal] 10 mg PO BID PRN 30 Days #60 tab 03/30/23 Naloxone HCl 4 mg NS DAILY PRN 365 Days #1 each 09/15/23 Pregabalin [Lyrica] 100 mg PO TID 30 Days #90 cap 11/09/23 Pregabalin [Lyrica] 100 mg PO TID 30 Days #90 cap 01/04/24 bisacodyL [Dulcolax] 5 mg PO DAILY PRN 30 Days #20 tab 01/04/24 fentaNYL 75MCG/HR PATCH [Duragesic 75MCG/HR] 75 mcg TRANSDERM Q48H 30 Days #15 patch 01/04/24 fentaNYL 75MCG/HR PATCH [Duragesic 75MCG/HR] 75 patch TRANSDERM Q48H 30 Days #15 patch 01/04/24 oxyCODONE HCL/ACETAMINOPHEN [Percocet 7.5-325 mg] 1 each PO Q8H PRN 30 Days #90 tab 01/04/24 oxyCODONE HCL/ACETAMINOPHEN [Percocet 7.5-325 mg] 1 tab PO Q8H PRN 30 Days #90 tab 01/04/24 Controlled Substance Measures - Controlled Substance Measures Is patient prescribed a controlled substance at discharge?: Yes When asked, does pt state using other controlled substances?: Yes If prescribed controlled substance>3 days was MAPS reviewed?: Yes If Rx opioid, was Start Talking consent form obtained?: Yes Was information provided regarding opioid addiction?: Yes
== END ==
LOC: PNWHC3 12:42
PROVIDERS: ATTEND Specialist
DX: M51.36 Other intervertebral disc degeneration, lumbar region (principal); M47.816 Spondylosis without myelopathy or radiculopathy, lumbar region; Z79.891 Long term (current) use of opiate analgesic
CPT/HCPCS: 99211

== ENCOUNTER → 2024-02-29 | Outpatient (CLI) | payer BC | LOC: PNWHC3 13:00 | PROVIDERS: ATTEND Specialist | DX: M47.26 Other spondylosis with radiculopathy, lumbar region (principal) | CPT/HCPCS: 99211 ==

== ENCOUNTER 2024-03-04 04:58 | Inpatient (IN) | payer BC, MEDICARE ==
[2024-03-04] MEDS ORDERED: ASPIRIN 81 MG ONE (18:48)
[2024-03-04] MEDS ORDERED: HEPARIN SODIUM 1,000 UN/ML (10ML VL) ONE (18:48)
[2024-03-04] MEDS ORDERED: HEPARIN SOD,PORK IN 0.45% NACL 250 ML IV ONE (18:48)
[2024-03-05] MEDS ORDERED: HYDROmorphone 1 MG/ML 1 ML SYRINGE ONE (01:21)
[2024-03-05] MEDS ORDERED: PREGABALIN 100 MG CAP ONE ×3 (08:47→21:58)
[2024-03-05] MEDS ORDERED: oxyCODONE-APAP 7.5-325MG 1 EACH TAB ONE ×3 (08:48→21:57)
[2024-03-05] MEDS ORDERED: MULTIVITAMINS, THERA 1 EACH TAB ONE (08:49)
[2024-03-05] MEDS ORDERED: ASCORBIC ACID 500 MG TAB ONE (08:49)
[2024-03-05] MEDS ORDERED: CHOLECALCIFEROL 25 MCG (1000 IU) TABLET ONE (08:50)
[2024-03-05] MEDS ORDERED: APIXABAN 5 MG TAB ONE ×2 (11:52→21:59)
[2024-03-05] MEDS ORDERED: AMIODARONE 200 MG TAB ONE ×2 (11:53→21:57)
[2024-03-05] MEDS ORDERED: METOPROLOL TARTRATE 50 MG TAB ONE ×2 (11:53→21:58)
[2024-03-06] MEDS ORDERED: oxyCODONE-APAP 7.5-325MG 1 EACH TAB ONE ×2 (05:14→12:56)
[2024-03-06] MEDS ORDERED: PREGABALIN 100 MG CAP ONE ×2 (05:15→12:56)
[2024-03-06] MEDS ORDERED: APIXABAN 5 MG TAB ONE (08:36)
[2024-03-06] MEDS ORDERED: METOPROLOL TARTRATE 50 MG TAB ONE (08:36)
[2024-03-06] MEDS ORDERED: MULTIVITAMINS, THERA 1 EACH TAB ONE (08:36)
[2024-03-06] MEDS ORDERED: AMIODARONE 200 MG TAB ONE (08:37)
--- NOTE | 2024-03-30 10:55 | CA ---
Transthoracic Echo Report Name: Ugo Ramirez Age: 58 Gender: M : 1965 Exam Date: 03/05/2024 13:51 Exam Location: [facility] Ht (in): 70 Wt (lb): 252 Ordering Physician: Attending/Referring Phys: Votator Machine Operator Sandhya Lima RDCS Procedure CPT: Indications: Cardiac Hx: Technical Quality: Good Contrast 1: Total Dose (mL): Contrast 2: Total Dose (mL): MEASUREMENTS (Male / Female) Normal Values 2D ECHO LV Diastolic Diameter PLAX 4.8 cm 4.2 - 5.9 / 3.9 - 5.3 cm LV Systolic Diameter PLAX 3.2 cm IVS Diastolic Thickness 1.1 cm 0.6 - 1.0 / 0.6 - 0.9 cm LVPW Diastolic Thickness 1.2 cm 0.6 - 1.0 / 0.6 - 0.9 cm LV Relative Wall Thickness 0.5 LVOT Diameter 2.1 cm LV Diastolic Volume MOD BP 129.4 cm??? 67 - 155 / 56 - 104 cm??? LV Systolic Volume MOD BP 56.4 cm??? 22 - 58 / 19 - 49 cm??? LV Ejection Fraction MOD BP 56.4 % >= 55 % LV Cardiac Index MOD BP 2415.3 cm???/min???m??? LV Diastolic Volume MOD 4C 140.2 cm??? LV Systolic Volume MOD 4C 62.7 cm??? LV Ejection Fraction MOD 4C 55.3 % LV Cardiac Index MOD 4C 2565.3 cm???/min???m??? LV Diastolic Length 4C 8.4 cm LV Systolic Length 4C 7.4 cm LV Diastolic Volume MOD 2C 116.5 cm??? LV Systolic Volume MOD 2C 46.9 cm??? LV Ejection Fraction MOD 2C 59.8 % LV Cardiac Index MOD 2C 2301.4 cm???/min???m??? LV Diastolic Length 2C 8.2 cm LV Systolic Length 2C 6.8 cm LA Volume 127.2 cm??? 18 - 58 / 22 - 52 cm??? LA Volume Index 52.6 cm???/m??? 16 - 28 cm???/m??? Ascending Aorta Diameter 3.6 cm DOPPLER AV Peak Velocity 84.9 cm/s AV Peak Gradient 2.9 mmHg AV Mean Velocity 61.2 cm/s AV Mean Gradient 1.6 mmHg AV Velocity Time Integral 16.7 cm LVOT Peak Velocity 69.9 cm/s LVOT Peak Gradient 2.0 mmHg LVOT Velocity Time Integral 14.6 cm LVOT Stroke Volume 53.1 cm??? LVOT Stroke Volume Index 23.1 ml/m??? LVOT Cardiac Index 1755.5 cm???/min???m??? AV Area Cont Eq vti 3.2 cm??? AV Area Cont Eq pk 3.0 cm??? PV Peak Velocity 70.0 cm/s PV Peak Gradient 2.0 mmHg FINDINGS Left Ventricle Left ventricular ejection fraction is estimated at 50-55 %. Mildly increased septal wall thickness. Left ventricular cavity size normal. No obvious regional wall motion abnormalities. Right Ventricle Mild right ventricular dilatation. Unable to estimate the right ventricular systolic pressure. Right Atrium Mild right atrial dilatation. Left Atrium Severely increased left atrial volume. Moderately increased left atrial area. Mitral Valve Structurally normal mitral valve. No evidence for mitral valve prolapse. No mitral stenosis. Mild mitral regurgitation. Thickened mitral valve leaflets Aortic Valve Trileaflet aortic valve. No aortic valve stenosis, trace regurgitation. Tricuspid Valve Structurally normal tricuspid valve. No tricuspid stenosis. Mild tricuspid regurgitation. Pulmonic Valve Structurally normal pulmonic valve. Mild pulmonic regurgitation. Pericardium No pericardial effusion. Aorta Normal size aortic root and proximal ascending aorta. CONCLUSIONS 1. Left ventricular systolic ejection fraction estimated at 50-55% with no segmental wall motion abnormality 2. With trace aortic regurgitation Mild mitral and tricuspid regurgitation Previewed by: Dr. Waldo Ramos MD (Electronically Signed) Final Date: 06 March 2024 12:33
--- NOTE | 2024-04-06 08:30 | XR ---
EXAMINATION TYPE: XR chest 2V DATE OF EXAM: 04/06/2024 8:25 AM CLINICAL INDICATION: Male, 58 years old with history of CHEST PAIN; [facility] COMPARISON: Chest radiographs from TECHNIQUE: XR chest 2V Frontal view of the chest. FINDINGS: Lungs/Pleura: There is no evidence of pleural effusion, focal consolidation, or pneumothorax. Pulmonary vascularity: Unremarkable. Heart/mediastinum: Cardiomediastinal silhouette is unremarkable. Musculoskeletal: No acute osseous pathology. There is fixation hardware in the lower cervical spine. Other findings: Of stimulator leads project over the spine. IMPRESSION: No acute cardiopulmonary disease/process. [facility], , 04/06/2024 8:28 AM
== END 2024-03-06 13:00 | disposition home or self-care (01) | DRG 310 ==
LOC: 3SCARD 04:58
PROVIDERS: ADMIT Internal Medicine; ATTEND Internal Medicine
DX: I48.0 Paroxysmal atrial fibrillation (principal); G89.29 Other chronic pain; M54.9 Dorsalgia, unspecified; M19.90 Unspecified osteoarthritis, unspecified site; I08.1 Rheumatic disorders of both mitral and tricuspid valves; Z87.11 Personal history of peptic ulcer disease; D64.9 Anemia, unspecified; Z86.14 Personal history of Methicillin resistant Staphylococcus aureus infection; Z98.1 Arthrodesis status; Z87.19 Personal history of other diseases of the digestive system; Z98.84 Bariatric surgery status
CPT/HCPCS: 71046; 93306; 96374; 99285

== ENCOUNTER → 2024-03-20 | Outpatient (CLI) | payer BC ==
--- NOTE | 2024-03-20 10:47 | XR ---
EXAMINATION TYPE: XR lumbar spine 2 or 3V DATE OF EXAM: 03/20/2024 10:40 AM CLINICAL INDICATION: Male, 58 years old with history of M54.16 RADICULOPATHY, LUMBAR REGION; [facility] COMPARISON: 03/29/2017 TECHNIQUE: XR lumbar spine 2 or 3V - Frontal, lateral and coned in L5-S1 lateral views of the spine. FINDINGS: No evidence of any acute osseous pathology. No evidence of loss of vertebral body height i s seen. There is grade 1 anterolisthesis of L4 and L5. Alignment of the lumbar vertebral bodies. Scat tered disc space narrowing. Multilevel marginal osteophyte formation throughout the visualized spine. There is facet joint arthropathy throughout the spine. Scattered at least mild neural foraminal sten osis. IMPRESSION: 1. No acute fracture. 2. Mild multilevel disc degeneration. 3. Grade 1 anterolisthesis of L4 and L5. Similar to prior.
--- NOTE | 2024-04-02 14:04 | P.PN ---
Progress Note - Text Progress Note Date: 04/02/24 MRI non contrast of the lumbar spine from 12/10/22 shows L4-L5 disc desiccation with spondylolisthesis of the L4 anteriorly on the L5. Also mild facet hypertrophy along BL L3-L4 and BL L4-L5.
== END | disposition home or self-care (01) ==
LOC: RADXRMAIN 10:20
PROVIDERS: ATTEND Specialist
DX: M54.16 Radiculopathy, lumbar region
CPT/HCPCS: 72100

== ENCOUNTER 2024-04-05 06:02 | Day surgery (SDC) | payer BC ==
[2024-04-02 13:13] VITALS: BMI 37.3
[2024-04-05] MEDS ORDERED: SODIUM CHLORIDE 0.9% 500 ML IV SCH (06:30)
[2024-04-05] MEDS: IV FLUID CONTINUATION 1,000 ML IV ONE (06:34)
[2024-04-05 06:46] VITALS: TEMP 97.3
[2024-04-05] MEDS: SODIUM CHLORIDE 0.9% 500 ML DEHP FREE BAG IV STA (07:04)
[2024-04-05] MEDS ORDERED: PROPOFOL 10 MG/ML 20 ML VIAL IV ONE (07:31)
[2024-04-05 08:26] VITALS: RESP 18
[2024-04-05 08:40] VITALS: BP 106/72; PULSE 73
[2024-04-05 08:51] LABS: African American GFR (CKD) >90 (>60 ml/min/1.73 sqM); Anion Gap 7 mmol/L; Blood Urea Nitrogen 22 mg/dL (9-20); Calcium 8.7 mg/dL (8.4-10.2); Carbon Dioxide 26 mmol/L (22-30); Chloride 108 mmol/L (98-107); Glucose 98 mg/dL (74-99); Non-African American GFR(CKD) 86 (>60 ml/min/1.73 sqM); Potassium 4.3 mmol/L (3.5-5.1); Sodium 141 mmol/L (137-145)
--- NOTE | 2024-04-05 09:31 | CE ---
CARDIAC ELECTROPHYSIOLOGY REPORT PROCEDURE: Electrical cardioversion. INDICATION: Persistent atrial fibrillation in spite of pharmacological therapy. CLINICAL INFORMATION: Mr. Ugo Ramirez is a 58-year-old gentleman with history of hypertension and recent onset atrial fibrillation, symptomatic with a reduced ejection fraction of 50%. Because of persistent atrial fib in spite of medical therapy, he was advised electrical cardioversion after anticoagulation for more than 4 weeks on Eliquis 5 mg b.i.d. He was brought in for the procedure electively. PROCEDURE NOTE: Under the influence of [id number] intravenous anesthetic agent with the attendance of the anesthesiologist, a single shock of 120 joules was delivered with anterior and posterior patches. The patient converted to sinus rhythm, remained hemodynamically stable and neurologically intact. This was a successful electrical cardioversion. Details and results were discussed with the patient and his . He will be discharged later on today in a couple of hours after he is up, ambulatory and has had a snack or a meal. He has an office visit to see me next week. He will increase metoprolol tartrate from 12.5 mg b.i.d. to 25 mg b.i.d. and continue amiodarone and Eliquis at the same dose. MMODL / IJN: [id number] /
== END 2024-04-05 08:57 | disposition home or self-care (01) ==
LOC: OR 06:02
PROVIDERS: ATTEND Internal Medicine Interventional Cardiology
DX: I48.19 Other persistent atrial fibrillation
CPT/HCPCS: 80048; 92960

== ENCOUNTER → 2024-05-09 | Outpatient (CLI) | payer BC ==
[2024-05-09 13:08] VITALS: BP 118/78; PULSE 56; RESP 20; TEMP 97.2
--- NOTE | 2024-05-09 14:41 | P.PAINPG ---
Objective - Vital Signs Vital signs: Intake & Output 05/08/24 05/09/24 05/09/24 18:59 06:59 18:59 Weight 250 kg PQRS Measure Charge Sheet Comment: A 58 yr old male with a history of severe and chronic LBP secondary to radiculopathy, spondylosis and facet arthropathy without myelopathy presents today for medication refills. Pain level is provoked at 7 /10 in intensity, constant, localized in the lumbar spine, predominantly axial, burning in character without shooting pain. Pain is provoked by sitting/ standing/ walking for periods > 15 min. Pain is alleviated with medications, alternating heat & ice, PT in 2019, repositioning and rest. PT was years ago but he follows a physician guided home exercise regimen every other day since 2019. He could not follow through w PT script provided at Feb 2024 visit due to a hospitalization for aFib exacerbation. Patient is currently on Fentanyl 75 mcg/hr #15, Percocet 7.5/325mg #90, Lyrica 100mg #90, Ibu, BioFreeze gel Patient denies any side effects of the medication(s), denies excessive drowsiness or sleepiness, denies suicidal ideation and reports that the current pain medication is helping to control the pain and improve activities of daily living. Patient denies any motor or sensory deficits. Patient denies any fever or night sweats, denies any change in the bowel movements or urination. Physical Examination: -Constitutional: Cooperative. Not in acute distress . - Neurologic: Cranial nerve II to XII intact. No focal neurological deficits. - Psychatric: Alert & oriented x 3. Matching mood & appropriate affect. Judgment and insight intact. - Musculoskeletal: Cervical spine: Muscle bulk/ tone/ strength in the bilateral upper extremities normal Vertebral body tenderness to palpation over Spurling test positive Distraction test positive Facet loading test positive TTP Thoracic spine Muscle bulk / tone/ strength in the bilateral paraspinal muscles normal Vertebral body tender to palpation over Facet loading test positive TTP Lumbar spine: Motor bulk/ tone/ strength lower extremities , thigh and legs : 5/5 Deep tendon reflexes : Normal Knee Jerk. Normal Ankle Jerk . Vertebral body tenderness to palpation over L4, L5 Castaneda Test positive Lumbar Facet Loading Test positive Straight Leg Raise: positive at 30 degrees right side/ left side Gaenslen's Test positive Sacral spine : Severe tenderness over the Sacroiliac joint: right side / left side Range of motion: Flexion of the lumbar spine <60 degrees Range of motion: Extension of the lumbar spine <20 degrees Gaenslen's Test positive right side / left side Jesus test: positive right side / left side Thigh Thrust Test positive right side / left side Sacral Thrust Test positive right side / left side Assessment and plan: Chronic LBP secondary to radiculopathy, spondylosis with facet arthropathy without myelopathy Chronic and current use of high-risk medication (Opioids). The patient was counseled about risk of opioid use, psychological risk associated with opioids and was orally counseled to not overuse , divert or sell medications. Pt is to store medication in a safe location. The patient is counseled against driving while using narcotic medications and also not to use alcohol or any illicit recreational drugs. Patient verbalized understanding that the lack of compliance will result in failure to renew narcotic prescription(s) as well as possible discharge from the clinic Diagnoses, prognosis and treatment options including but not limited to physical therapy, surgical interventions, interventional therapies and medication management including narcotics and adjuvant medication were discussed. All patient questions answered MAPS reviewed and it was appropriate. UDS collected 05/09/24. Narcotic/ opiate agreement updated 05/09/24. Prescription refill for Fentanyl 75 mcg/hr #15, Percocet 7.5/325mg #90, Lyrica 100mg #90, Dulcolax w 1 RF. Narcan previously e-scribed to pt's pharmacy. I have spent less than 30 minutes on patient care today. Dr Pate was available by phone for the evaluation of this patient. The time was used to review the medical records including relevant urine studies and Prescription history (MAPs), review of the available imaging, evaluation and examination of the patient, coordination of care with the medical staff and if applicable referring physicians, as well as creation of the medical record - Pain Location Lower Back Non-Pharmacological Interventions: Position/Reposition PQRS Narrative: Smoking Status Never smoker Narcotic Agreement Date Signed 07/20/23 Hx Alcohol Use (MH) No Home Medications: Ambulatory Orders Furosemide [Lasix] 20 mg PO DAILY 09/20/14 Multivitamins, Thera [Multivitamin (formulary)] 1 tab PO DAILY 02/04/20 calcium polycarbophiL [Fibercon] 625 mg PO DAILY 12/29/20 Ascorbic Acid [Vitamin C] 3,000 mg PO DAILY 08/22/21 Folic Acid 1 mg PO DAILY 08/22/21 Naloxone HCl 4 mg NS DAILY PRN 365 Days #1 each 09/15/23 bisacodyL [Dulcolax] 5 mg PO DAILY PRN 30 Days #20 tab 01/04/24 Amiodarone [Cordarone] 200 mg PO DAILY 04/02/24 Apixaban [Eliquis] 5 mg PO BID 04/02/24 Cariprazine HCl [Vraylar] 6 mg PO QAM 04/02/24 Cholecalciferol [Vitamin D3 (125 Mcg = 5000 Iu)] 250 mcg PO DAILY 04/02/24 Diclofenac Sodium/Misoprostol [Diclofenac-Misoprost 75-0.2 mg] 1 tab PO BID PRN 04/02/24 Metoprolol Tartrate 12.5 mg PO BID 04/02/24 Potassium Chloride ER [K-Dur 10] 20 meq PO DAILY 04/02/24 traZODone HCL 400 mg PO HS 04/02/24 Baclofen [Lioresal] 10 mg PO BID PRN 30 Days #60 tab 05/09/24 Pregabalin [Lyrica] 100 mg PO TID 30 Days #90 cap 05/09/24 fentaNYL 75MCG/HR PATCH [Duragesic 75MCG/HR] 75 mcg TRANSDERM Q48H 30 Days #15 patch 05/09/24 fentaNYL 75MCG/HR PATCH [Duragesic 75MCG/HR] 75 mcg TRANSDERM Q48H 30 Days #15 patch 05/09/24 oxyCODONE HCL/ACETAMINOPHEN [Percocet 7.5-325 mg Tablet] 1 each PO TID PRN 30 Days #910 tab 05/09/24 oxyCODONE HCL/ACETAMINOPHEN [Percocet 7.5-325 mg] 1 tab PO Q8H PRN 30 Days #90 tab 05/09/24 Controlled Substance Measures - Controlled Substance Measures Is patient prescribed a controlled substance at discharge?: Yes When asked, does pt state using other controlled substances?: No If prescribed controlled substance>3 days was MAPS reviewed?: Yes If Rx opioid, was Start Talking consent form obtained?: Yes Was information provided regarding opioid addiction?: Yes
== END ==
LOC: PNWHC3 12:49
PROVIDERS: ATTEND Specialist
DX: G89.4 Chronic pain syndrome
CPT/HCPCS: 80307; 99211

== ENCOUNTER → 2024-07-04 | Outpatient (CLI) | payer BC ==
[2024-07-04 13:22] VITALS: BP 116/72; PULSE 50; RESP 16
--- NOTE | 2024-07-04 15:22 | P.PAINPG ---
Objective - Vital Signs Vital signs: Intake & Output 07/03/24 07/04/24 07/04/24 18:59 06:59 18:59 Weight 117.934 kg PQRS Measure Charge Sheet Comment: A 58 yr old male with a history of severe and chronic LBP secondary to radiculopathy, spondylosis and facet arthropathy without myelopathy presents today for medication refills. Pain level is provoked at 7 /10 in intensity, constant, localized in the lumbar spine, predominantly axial, burning in character without shooting pain. Pain is provoked by sitting/ standing/ walking for periods > 15 min. Pain is alleviated with medications, alternating heat & ice, PT in 2019, repositioning and rest. PT was years ago but he follows a physician guided home exercise regimen every other day since 2019. He could not follow through w PT script provided at Feb 2024 visit due to a hospitalization for aFib exacerbation. Patient is currently on Fentanyl 75 mcg/hr #15, Percocet 7.5/325mg #90, Lyrica 100mg #90, Ibu, BioFreeze gel Patient denies any side effects of the medication(s), denies excessive drowsiness or sleepiness, denies suicidal ideation and reports that the current pain medication is helping to control the pain and improve activities of daily living. Patient denies any motor or sensory deficits. Patient denies any fever or night sweats, denies any change in the bowel movements or urination. Physical Examination: -Constitutional: Cooperative. Not in acute distress . - Neurologic: Cranial nerve II to XII intact. No focal neurological deficits. - Psychatric: Alert & oriented x 3. Matching mood & appropriate affect. Judgment and insight intact. - Musculoskeletal: Cervical spine: Muscle bulk/ tone/ strength in the bilateral upper extremities normal Vertebral body tenderness to palpation over Spurling test positive Distraction test positive Facet loading test positive TTP Thoracic spine Muscle bulk / tone/ strength in the bilateral paraspinal muscles normal Vertebral body tender to palpation over Facet loading test positive TTP Lumbar spine: Motor bulk/ tone/ strength lower extremities , thigh and legs : 5/5 Deep tendon reflexes : Normal Knee Jerk. Normal Ankle Jerk . Vertebral body tenderness to palpation over L4, L5 Castaneda Test positive Lumbar Facet Loading Test positive Straight Leg Raise: positive at 30 degrees right side/ left side Gaenslen's Test positive Sacral spine : Severe tenderness over the Sacroiliac joint: right side / left side Range of motion: Flexion of the lumbar spine <60 degrees Range of motion: Extension of the lumbar spine <20 degrees Gaenslen's Test positive right side / left side Jesus test: positive right side / left side Thigh Thrust Test positive right side / left side Sacral Thrust Test positive right side / left side Assessment and plan: Chronic LBP secondary to radiculopathy, spondylosis with facet arthropathy without myelopathy Chronic and current use of high-risk medication (Opioids). The patient was counseled about risk of opioid use, psychological risk associated with opioids and was orally counseled to not overuse , divert or sell medications. Pt is to store medication in a safe location. The patient is counseled against driving while using narcotic medications and also not to use alcohol or any illicit recreational drugs. Patient verbalized understanding that the lack of compliance will result in failure to renew narcotic prescription(s) as well as possible discharge from the clinic Diagnoses, prognosis and treatment options including but not limited to physical therapy, surgical interventions, interventional therapies and medication management including narcotics and adjuvant medication were discussed. All patient questions answered MAPS reviewed and it was appropriate. UDS from 05/09/24 reviewed and consistent. Narcotic/ opiate agreement updated 05/09/24. Prescription refill for Fentanyl 75 mcg/hr #15, Percocet 7.5/325mg #90, Lyrica 100mg #90, Dulcolax w 1 RF. Narcan previously e-scribed to pt's pharmacy. I have spent less than 30 minutes on patient care today. Dr Pate was available by phone for the evaluation of this patient. The time was used to review the medical records including relevant urine studies and Prescription history (MAPs), review of the available imaging, evaluation and examination of the patient, coordination of care with the medical staff and if applicable referring physicians, as well as creation of the medical record PQRS Narrative: Smoking Status Never smoker Narcotic Agreement Date Signed 05/09/24 Hx Alcohol Use (MH) No Home Medications: Ambulatory Orders Furosemide [Lasix] 20 mg PO DAILY 09/20/14 Multivitamins, Thera [Multivitamin (formulary)] 1 tab PO DAILY 02/04/20 calcium polycarbophiL [Fibercon] 625 mg PO DAILY 07/15/20 Ascorbic Acid [Vitamin C] 3,000 mg PO DAILY 08/22/21 Folic Acid 1 mg PO DAILY 08/22/21 Naloxone HCl 4 mg NS DAILY PRN 365 Days #1 each 09/15/23 Amiodarone [Cordarone] 200 mg PO DAILY 04/02/24 Apixaban [Eliquis] 5 mg PO BID 04/02/24 Cariprazine HCl [Vraylar] 6 mg PO QAM 04/02/24 Cholecalciferol [Vitamin D3 (125 Mcg = 5000 Iu)] 250 mcg PO DAILY 04/02/24 Diclofenac Sodium/Misoprostol [Diclofenac-Misoprost 75-0.2 mg] 1 tab PO BID PRN 04/02/24 Metoprolol Tartrate 12.5 mg PO BID 04/02/24 Potassium Chloride ER [K-Dur 10] 20 meq PO DAILY 04/02/24 traZODone HCL 400 mg PO HS 04/02/24 Baclofen [Lioresal] 10 mg PO BID PRN 30 Days #60 tab 07/04/24 Pregabalin [Lyrica] 100 mg PO TID 30 Days #90 cap 07/04/24 bisacodyL [Dulcolax] 5 mg PO DAILY PRN 30 Days #20 tab 07/04/24 fentaNYL 75MCG/HR PATCH [Duragesic 75MCG/HR] 75 mcg TRANSDERM Q48H 30 Days #15 patch 07/04/24 fentaNYL 75MCG/HR PATCH [Duragesic 75MCG/HR] 75 mcg TRANSDERM Q48H 30 Days #15 patch 07/04/24 oxyCODONE HCL/ACETAMINOPHEN [Percocet 7.5-325 mg] 1 each PO TID PRN 30 Days #910 tab 07/04/24 oxyCODONE HCL/ACETAMINOPHEN [Percocet 7.5-325 mg] 1 tab PO Q8H PRN 30 Days #90 tab 07/04/24 Controlled Substance Measures - Controlled Substance Measures Is patient prescribed a controlled substance at discharge?: Yes When asked, does pt state using other controlled substances?: Yes If prescribed controlled substance>3 days was MAPS reviewed?: Yes
== END ==
LOC: PNWHC3 12:56
PROVIDERS: ATTEND Specialist
DX: M47.26 Other spondylosis with radiculopathy, lumbar region (principal); Z79.891 Long term (current) use of opiate analgesic
CPT/HCPCS: 99211

== ENCOUNTER → 2024-10-24 | Outpatient (CLI) | payer BC ==
[2024-10-24 13:17] VITALS: BP 107/74; PULSE 59; RESP 16
--- NOTE | 2024-10-24 15:11 | P.PAINPG ---
PQRS Measure Charge Sheet Comment: A 58 yr old male with a history of severe and chronic LBP secondary to radiculopathy, spondylosis and facet arthropathy without myelopathy presents today for medication refills . Pain level is provoked at 6 /10 in intensity, constant, localized in the lumbar spine, predominantly axial, burning in character w occasional shooting pain towards the hips and L buttock. Pain is provoked by standing/ walking for periods > 15 min. Pain is alleviated with medications, alternating heat & ice, PT in 2019, repositioning and rest. PT was years ago but he follows a physician guided home exercise regimen every other day since 2019. Patient is currently on Fentanyl 75 mcg/hr #15, Percocet 7.5/325mg #90, Lyrica 1 00mg #90, Ibu, BioFreeze gel Patient denies any side effects of the medication(s), denies excessive drowsiness or sleepiness, denies suicidal ideation and reports that the current pain medication is helping to control the pain and improve activities of daily living. Patient denies any motor or sensory deficits. Patient denies any fever or night sweats, denies any change in the bowel movements or urination. Physical Examination: -Constitutional: Cooperative. Not in acute distress . - Neurologic: Cranial nerve II to XII intact. No focal neurological deficits. - Psychatric: Alert & oriented x 3. Matching mood & appropriate affect. Judgment and insight intact. - Musculoskeletal: Cervical spine: Muscle bulk/ tone/ strength in the bilateral upper extremities normal Vertebral body tenderness to palpation over Spurling test positive Distraction test positive Facet loading test positive TTP Thoracic spine Muscle bulk / tone/ strength in the bilateral paraspinal muscles normal Vertebral body tender to palpation over Facet loading test positive TTP Lumbar spine: Motor bulk/ tone/ strength lower extremities , thigh and legs : 5/5 Deep tendon reflexes : Normal Knee Jerk. Normal Ankle Jerk . Vertebral body tenderness to palpation over L4, L5 Castaneda Test positive Lumbar Facet Loading Test positive Straight Leg Raise: positive at 30 degrees right side/ left side Gaenslen's Test positive Sacral spine : Severe tenderness over the Sacroiliac joint: right side / left side Range of motion: Flexion of the lumbar spine <60 degrees Range of motion: Extension of the lumbar spine <20 degrees Gaenslen's Test positive right side / left side Jesus test: positive right side / left side Thigh Thrust Test positive right side / left side Sacral Thrust Test positive right side / left side Assessment and plan: Chronic LBP secondary to radiculopathy, spondylosis with facet arthropathy without myelopathy Chronic and current use of high-risk medication (Opioids). The patient was counseled about risk of opioid use, psychological risk associated with opioids and was orally counseled to not overuse , divert or sell medications. Pt is to store medication in a safe location. The patient is counseled against driving while using narcotic medications and also not to use alcohol or any illicit recreational drugs. Patient verbalized understanding that the lack of compliance will result in failure to renew narcotic prescription(s) as well as possible discharge from the clinic Diagnoses, prognosis and treatment options including but not limited to physical therapy, surgical interventions, interventional therapies and medication management including narcotics and adjuvant medication were discussed. All patient questions answered MAPS reviewed and it was appropriate. UDS from 05/09/24 reviewed and consistent. Narcotic/ opiate agreement updated 05/09/24. Prescription refill for Fentanyl 75 mcg/hr #15, Percocet 7.5/325mg #90, Lyrica 100mg #90, Baclofen 10mg #90 and Dulcolax w 1 RF. Narcan previously e- scribed to pt's pharmacy. I have spent less than 30 minutes on patient care today. Dr Pate was available by phone for the evaluation of this patient. The time was used to review the medical records including relevant urine studies and Prescription history (MAPs), review of the available imaging, evaluation and examination of the patient, coordination of care with the medical staff and if applicable referring physicians, as well as creation of the medical record - Pain Location Bilateral Lower Back Non-Pharmacological Interventions: Heat, Ice, Inactivity, Position/Reposition, Sitting Pharmacological Interventions: PRN Medication, Scheduled Medication, Topical Medication PQRS Narrative: Smoking Status Never smoker Narcotic Agreement Date Signed 05/09/24 Hx Alcohol Use (MH) No Home Medications: Ambulatory Orders Furosemide [Lasix] 20 mg PO QAM 09/20/14 Multivitamins, Thera [Multivitamin (formulary)] 1 tab PO QAM 02/04/20 Ascorbic Acid [Vitamin C] 3,000 mg PO QAM 08/22/21 Folic Acid 1 mg PO DAILY 08/22/21 Naloxone HCl 4 mg NS DAILY PRN 365 Days #1 each 09/15/23 Amiodarone [Cordarone] 200 mg PO BID 04/02/24 Apixaban [Eliquis] 5 mg PO BID 04/02/24 Cariprazine HCl [Vraylar] 6 mg PO QAM 04/02/24 Cholecalciferol [Vitamin D3 (125 Mcg = 5000 Iu)] 250 mcg PO QAM 04/02/24 Diclofenac Sodium/Misoprostol [Diclofenac-Misoprost 75-0.2 mg] 1 tab PO BID PRN 04/02/24 Metoprolol Tartrate 25 mg PO QAM 04/02/24 Potassium Chloride ER [K-Dur 10] 20 meq PO QAM 04/02/24 traZODone HCL 400 mg PO HS 04/02/24 Metamucil(Unknown Dose) 1 dose PO DIRECTED 08/24/24 Baclofen [Lioresal] 10 mg PO BID PRN 30 Days #60 tab 08/29/24 Pregabalin [Lyrica] 100 mg PO TID 30 Days #90 cap 08/29/24 bisacodyL [Dulcolax] 5 mg PO DAILY PRN 30 Days #20 tab 08/29/24 fentaNYL 75MCG/HR PATCH [Duragesic 75MCG/HR] 75 mcg TRANSDERM Q48H 30 Days #15 patch 08/29/24 fentaNYL 75MCG/HR PATCH [Duragesic 75MCG/HR] 75 mcg TRANSDERM Q48H 30 Days #15 patch 08/29/24 oxyCODONE HCL/ACETAMINOPHEN [Percocet 7.5-325 mg] 1 tab PO TID PRN 30 Days #90 tab 08/29/24 oxyCODONE HCL/ACETAMINOPHEN [Percocet 7.5-325 mg] 1 tab PO TID PRN 30 Days #90 tab 08/29/24 Controlled Substance Measures - Controlled Substance Measures Is patient prescribed a controlled substance at discharge?: Yes When asked, does pt state using other controlled substances?: No If prescribed controlled substance>3 days was MAPS reviewed?: Yes
== END ==
LOC: PNWHC3 12:35
PROVIDERS: ATTEND Specialist
DX: M47.26 Other spondylosis with radiculopathy, lumbar region (principal); Z79.891 Long term (current) use of opiate analgesic
CPT/HCPCS: 80307; 99212

== ENCOUNTER → 2025-01-09 | Outpatient (CLI) | payer BC ==
[2025-01-09 19:29] LABS: Blood Urea Nitrogen 23.7 mg/dL (9.0-27.0)
[2025-01-09 19:30] LABS: Carbon Dioxide 27.1 mmol/L (21.6-31.8); Chloride 105 mmol/L (96-109); Potassium 4.8 mmol/L (3.5-5.5); Sodium 143 mmol/L (135-145)
[2025-01-09 19:39] LABS: HCT 36.8 % (39.6-50.0); HGB 11.4 g/dL (13.0-17.0); MCH 26.5 pg (27.0-32.0); MCV 85.6 FL (80.0-97.0); Mean Platelet Volume 11.3 FL (9.5-12.2); NRBC Per 100 WBC 0 X 10*3/uL (0.00-0.01); Platelet Count 200 X 10*3/uL (140-440); RDW 15.3 % (11.5-14.5); WBC 9.12 X 10*3/uL (4.50-10.00)
== END | disposition home or self-care (01) ==
LOC: LABWHC1 12:49
PROVIDERS: ATTEND Internal Medicine Clinical Cardiac Electrophysiology
DX: Z01.812 Encounter for preprocedural laboratory examination (principal); I48.19 Other persistent atrial fibrillation
CPT/HCPCS: 36415; 80051; 82565; 84520; 85027

== ENCOUNTER 2025-01-24 07:36 | Day surgery (SDC) | payer BC ==
[2025-01-24] MEDS: SODIUM CHLORIDE 0.9% 1,000 ML IV SCH (08:14)
[2025-01-24] MEDS: IV FLUID CONTINUATION 1,000 ML IV ONE (08:15)
[2025-01-24 08:32] LABS: ALT 41 U/L (4-49); AST 32 U/L (17-59); African American GFR (CKD) >90 (>60 ml/min/1.73 sqM); Albumin 4.0 g/dL (3.5-5.0); Alkaline Phosphatase 120 U/L (38-126); Anion Gap 8 mmol/L; Blood Urea Nitrogen 25 mg/dL (9-20); Calcium 8.5 mg/dL (8.4-10.2); Carbon Dioxide 27 mmol/L (22-30); Chloride 106 mmol/L (98-107); Glucose 101 mg/dL (74-99); Non-African American GFR(CKD) >90 (>60 ml/min/1.73 sqM); Potassium 3.9 mmol/L (3.5-5.1); Sodium 141 mmol/L (137-145); Total Protein 6.0 g/dL (6.3-8.2)
[2025-01-24] MEDS ORDERED: SUCCINYLCHOLINE CHLORIDE 200 MG/10 ML VIAL IV ONE (09:19)
[2025-01-24] MEDS ORDERED: KETOROLAC 15 MG/ML 1 ML VIAL ONE (09:19)
[2025-01-24] MEDS ORDERED: MIDAZOLAM 2 MG/2 ML VIAL ONE (09:19)
[2025-01-24] MEDS ORDERED: fentaNYL (PF) 50 MCG/ML 2 ML AMP ONE (09:19)
[2025-01-24] MEDS ORDERED: HYDROmorphone (PF) 1 MG/ML ONE (09:19)
[2025-01-24] MEDS ORDERED: PHENYLEPHRINE-0.9% NACL SYG 1,000 MCG/10 ML SYRINGE ONE (09:19)
[2025-01-24] MEDS ORDERED: PROPOFOL 10 MG/ML 20 ML VIAL IV ONE (09:19)
[2025-01-24] MEDS: HEPARIN SOD,PORK IN 0.45% NACL 25,000 UNIT in 0.45% NACL 1 250ML.BAG IV ONE (09:45)
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
[2025-01-24] MEDS: HEPARIN SODIUM (1,000 UNIT/ML) 1,000 UNIT in SODIUM CHLORIDE 0.9% 1,000 ML IRRIGATION ONE (12:30)
[2025-01-24] MEDS ORDERED: ACETAMINOPHEN TAB 325 MG TAB PO PRN (14:14)
--- NOTE | 2025-01-24 14:17 | P.PRLE ---
RE: Ugo Ramirezr Acacia Mr. Wang underwent ablation for atrial fibrillation today. As you know he has persistent symptomatic atrial fibrillation and has failed oral amiodarone. He underwent entry-level isolation of the pulmonary veins successfully as well as left atrial roof and left atrial septal ablation ablation. He also had an accessory pulmonary vein that was entering the anterior left atrial wall and he underwent successful antral level isolation of this accessory pulmonary vein to. He tolerated the procedure well without any acute complications. Intracardiac echo revealed left atrial enlargement as well as thickened pericardium with trace pericardial effusion consistent with prior, chronic pericarditis. I would recommend uninterrupted anticoagulation with Eliquis but he may stop amiodarone completely Thank you for entrusting me with the care of the patient Warm regards Sincerely Cayden Powell
--- NOTE | 2025-01-24 14:25 | P.EPPROC ---
- EP Procedure Note Electrophysiology Procedure Note: PROCEDURE A. fib ablation with entry-level PVI and left atrial roof ablation with cryo, left atrial septal ablation with RF. Patient also had an accessory pulmonary vein emptying into the left atrial anterior wall. Successful entry-level isolation was performed and the RF lesions were connected to the RS PV and left atrial roof. DIAGNOSIS Atrial fibrillation, symptomatic, refractory to therapy with amiodarone RESULT No left atrial appendage mass seen on intracardiac echo. Enlarged left atrium. Thickened pericardium with trace effusion Successful A. fib ablation/pulmonary vein isolation of all veins using cryo- ablation Complete entrance block in all 4 veins confirmed Transient phrenic nerve paresis with rapid recovery, when isolating the right middle pulmonary vein Left atrial roof ablation Left atrial septal ablation with RF Accessory pulmonary vein emptying into the anterior wall of the left atrium, status post successful ablation at an antral level. RF line was joint to the left atrial roof and the right superior pulmonary vein Very fractionated signals along the septum. RF ablations on the left atrial septum delivered across the these sites. Esophageal deflection YES Electrical cardioversion with a synchronized shock across the chest YES Voltage mapping performed thereafter and complete isolation of the pulmonary veins and complete quiescence of the septum in the left atrial roof confirmed PROCEDURE DETAILS Written informed consent prior to procedure. Patient brought to the EP lab. General anesthesia given. Heparin administered. A city maintained above 300 seconds Both groins prepped and draped per protocol and venous sheaths placed. Esop hagus intubated, circa catheter for temperature monitoring an endoscope for possible esophageal deflection. Phrenic nerve monitoring performed. Esophageal temperature monitoring performed. Esophageal deflection performed if circa catheter overlapping with the balloon or circa temperature less than 27.5°C Intracardiac echocardiography performed. Pericardium evaluated. Left atrial appendage evaluated. Left atrium evaluated along with pulmonary veins Transseptal catheterization performed under fluoroscopic guidance and intracardiac echo guidance Cryoablation sheath exchanged, balloon catheter along with achieve catheter placed in the left atrium. Pulmonary veins isolated in the following sequence: Left superior pulmonary vein followed by left inferior pulmonary vein, followed by right inferior pulmonary vein and lastly right superior pulmonary vein. Phrenic nerve stimulation along with capture thresholds within the SVC and right superior pulmonary vein to identify the phrenic nerve proximity to the cryo- balloon. Pulmonary veins isolated and confirmed with entrance and exit block. Phrenic nerve integrity confirmed at the end of the procedure Ablation of the left atrial roof performed with sequential lesions from the left superior to the right superior pulmonary veins using cryoablation. Ablation of the electrograms confirmed with voltage mapping Ablation of the left atrial septum performed with cannulation of the superior branch of the right inferior or the inferior branch of the right superior vein to achieve ablation of the posterior septum of the left atrium. Subsequently, fractionation was noted more anteriorly and additional RF lesions were applied for septal ablation across these fractionated points. Entrance and exit block in the segment confirmed, electrical quiescence confirmed 3D electroanatomic mapping of the left atrium revealed an accessory pulmonary vein emptying into the upper anterior LA wall. RF ablation was performed at an antral level. This line was connected to the right superior pulmonary vein and the left atrial roofline. The segment was completely isolated and there was exit block confirmed Electrical cardioversion performed for persistence of atrial fibrillation despite successful ablation. Following the voltage mapping was performed for confirmation and success Diagnostic catheters for the high right atrium, His bundle, coronary sinus placed. LA and RA pressures recorded LA pressure: 08/09/11 Diagnostic EP study with coronary sinus pacing and recording Baseline measurements: Sinus cycle length 1104 ms, CT interval 166 ms, QRS 108 ms and QT interval 442 ms AH 69 ms and HV interval 37 ms Sinus node recovery times at a pacing cycle length of 600 ms was 1153 ms. Corrected sinus node recovery time normal AV node Wenckebach block 290 ms Venous sheaths were removed and hemostasis assured with a closure device. Patient extubated and transferred to recovery Increase procedural time During ablation multiple attempts had to be made to move the esophagus a safe distance of the from the pulmonary vein draining cryoablation, to avoid excessive thermal cooling of the esophagus This took extra time and effort to keep the esophagus a safe distance away from the cryoablation balloon. Very large pulmonary veins requiring multiple ablations segmentally especially in the left inferior pulmonary vein. Phrenic nerve paresis noted with the right middle pulmonary vein was isolated. This was transient with very quick recovery Multiple attempts needed for successful cryoablation isolation of the right i nferior pulmonary vein subsequently PROCEDURES PERFORMED Diagnostic EP study CS pacing and recording Left and right transseptal catheterization Catheter the mapping of the tachycardia Intracardiac echocardiography Pulmonary vein isolation with transseptal and comprehensive EPS, [id number] Extended procedure duration Drug infusion, +[id number] Left atrial roof line, +[id number] Linear ablation, left atrium, +[id number] Electrical cardioversion with a synchronized shock across the chest [id number]
[2025-01-24] MEDS: ACETAMINOPHEN IV (For NPO) 1,000 MG in EMPTY BAG 1 BAG IVPB ONE (14:46)
[2025-01-24] MEDS: fentaNYL (PF) 50 MCG/ML 2 ML AMP IVP PRN (14:49)
[2025-01-24] MEDS: FUROSEMIDE 10 MG/ML 4 ML VIAL IV STA (15:01)
[2025-01-24] MEDS: FUROSEMIDE 40 MG TAB PO SCH (15:02)
[2025-01-24] MEDS: PREGABALIN 100 MG CAP PO SCH (17:34)
[2025-01-24] MEDS: oxyCODONE-APAP 7.5-325MG 1 EACH TAB PO PRN (21:26)
[2025-01-24] MEDS: APIXABAN 5 MG TAB PO SCH (21:26)
[2025-01-24] MEDS: BACLOFEN 10 MG TAB PO PRN (21:27)
[2025-01-25 05:11] VITALS: TEMP 98.1
[2025-01-25 08:08] VITALS: BP 116/79; PULSE 72; RESP 17
[2025-01-25] MEDS: NON FORMULARY DRUG (Cariprazine Hcl [Vraylar] 6 MG Capsule) PO SCH (08:21)
[2025-01-25] MEDS: POTASSIUM CHLORIDE ER 20 MEQ TAB.ER PO SCH (08:22)
--- NOTE | 2025-01-25 10:36 | P.DS ---
Providers Expected date of discharge: 01/25/25 Attending physician: Cayden Powell Primary care physician: Floresita [facility] Course: This is a 59-year-old male patient brought into the hospital under the care of Dr. Powell status post left atrial roof ablation with cryo, left atrial septal ablation with RF, please see EP note for details. Patient had no postprocedure complications. He denies chest pain, chest pressure, palpitations. No lighthe adedness or dizziness. Blood pressure 116/79, heart rate in the 70s, pulse ox 96% on room air. EKG has been reviewed by Dr. Powell. Patient remains in a sinus rhythm. Patient will be discharged home off beta-seferino and off amiodarone. Physical examination: LUNGS: Diminished bilaterally no rhonchi, no crackles, no intercostal retractions. HEART: Regular rate and rhythm. No murmur. ABDOMEN: Soft No tenderness. EXTREMITIES: No pedal edema. No calf tenderness. NEUROLOGICAL: Patient is awake, alert and oriented x3. Assessment: Persistent atrial fibrillation that has failed treatment, symptomatic Increased BMI Sinus bradycardia Amiodarone discontinued 2 weeks back RV enlargement on echo with severe left atrial enlargement but preserved systolic function Plan: Patient will be discharged home today in stable condition Patient will remain off amiodarone and beta-seferino Nurse practitioner note has been reviewed, I agree with documented findings and plan of care. Patient was seen and examined. Plan - Discharge Summary Discharge Rx Participant: No New Discharge Prescriptions: Continue Furosemide [Lasix] 20 mg PO QAM Multivitamins, Thera [Multivitamin (formulary)] 1 tab PO QAM Ascorbic Acid [Vitamin C] 3,000 mg PO QAM Apixaban [Eliquis] 5 mg PO BID Diclofenac Sodium/Misoprostol [Diclofenac-Misoprost 75-0.2 mg] 1 tab PO BID PRN PRN Reason: Pain Metamucil(Unknown Dose) 1 dose PO DIRECTED fentaNYL 75MCG/HR PATCH [Duragesic 75MCG/HR] 75 mcg TRANSDERM Q48H 30 Days #15 patch Baclofen [Lioresal] 10 mg PO BID PRN 30 Days #60 tab PRN Reason: Muscle Spasm oxyCODONE HCL/ACETAMINOPHEN [Percocet 7.5-325 mg] 1 tab PO TID PRN 30 Days #90 tab PRN Reason: Pain bisacodyL [Dulcolax] 5 mg PO DAILY PRN 30 Days #20 tab PRN Reason: Constipation Naloxone HCl 4 mg NS DAILY PRN 365 Days #1 each PRN Reason: Opioid Reversal Potassium Chloride ER [K-Dur 10] 20 meq PO QAM traZODone HCL 400 mg PO HS Cariprazine HCl [Vraylar] 6 mg PO QAM Pregabalin [Lyrica] 100 mg PO TID 30 Days #90 cap Discontinued Amiodarone [Cordarone] 100 mg PO BID Discharge Medication List Furosemide [Lasix] 20 mg PO QAM 09/20/14 [History] Multivitamins, Thera [Multivitamin (formulary)] 1 tab PO QAM 02/04/20 [History] Ascorbic Acid [Vitamin C] 3,000 mg PO QAM 08/22/21 [History] Naloxone HCl 4 mg NS DAILY PRN 365 Days #1 each 09/15/23 [Rx] Apixaban [Eliquis] 5 mg PO BID 04/02/24 [History] Cariprazine HCl [Vraylar] 6 mg PO QAM 04/02/24 [History] Diclofenac Sodium/Misoprostol [Diclofenac-Misoprost 75-0.2 mg] 1 tab PO BID PRN 04/02/24 [History] Potassium Chloride ER [K-Dur 10] 20 meq PO QAM 04/02/24 [History] traZODone HCL 400 mg PO HS 04/02/24 [History] Metamucil(Unknown Dose) 1 dose PO DIRECTED 08/24/24 [History] Baclofen [Lioresal] 10 mg PO BID PRN 30 Days #60 tab 12/19/24 [Rx] Pregabalin [Lyrica] 100 mg PO TID 30 Days #90 cap 12/19/24 [Rx] bisacodyL [Dulcolax] 5 mg PO DAILY PRN 30 Days #20 tab 12/19/24 [Rx] fentaNYL 75MCG/HR PATCH [Duragesic 75MCG/HR] 75 mcg TRANSDERM Q48H 30 Days #15 patch 12/19/24 [Rx] oxyCODONE HCL/ACETAMINOPHEN [Percocet 7.5-325 mg] 1 tab PO TID PRN 30 Days #90 tab 12/19/24 [Rx] Follow up Appointment(s)/Referral(s): Cayden Powell MD [STAFF PHYSICIAN] - 1 Week (Office will call patient with date and time of appointment) Activity/Diet/Wound Care/Special Instructions: Post EP study - Ablation instructions 1. Keep access sites dry for 2 days. 2. No heavy lifting or straining for 2 days. 3. Avoid bending the hips repeatedly for 2 days. 4. You may go up and down stairs slowly 5. If you have had an ablation for atrial fibrillation or atrial flutter and are on a blood thinner, do not stop the blood thinner even temporarily for 3 months post ablation Call if the following is noted 1. Bleeding, increasing swelling or pain at the access sites. 2. Increasing chest discomfort, especially upon taking a deep breath. 3. Increasing shortness of breath, at rest or with exertion. 4. Undue cough / phlegm 5. Difficulty or pain while swallowing. 6. Pain or change in color in the extremities. 7. Fever, chills, rigors. 8. Increasing headache or neurologic symptoms. 9. Dizziness, fainting, palpitations For patients who have undergone an A-fib ablation /atrial flutter ablation Strict instruction; do NOT stop anticoagulation (Eliquis/Xarelto/Pradaxa) for the next 2 months temporarily, for any elective, nonurgent surgery. This increases the risk of stroke, post A-fib ablation Discharge Disposition: HOME SELF-CARE
== END 2025-01-25 10:48 | disposition home or self-care (01) ==
LOC: CATHEP 07:36 → 6NMEDSUR 13:51 → CATHEP 01-25 10:48
PROVIDERS: ATTEND Internal Medicine Clinical Cardiac Electrophysiology
DX: I48.19 Other persistent atrial fibrillation (principal); I51.7 Cardiomegaly; K21.9 Gastro-esophageal reflux disease without esophagitis; F32.A Depression, unspecified; M54.50 Low back pain, unspecified; Z90.89 Acquired absence of other organs; Z96.651 Presence of right artificial knee joint; Z98.84 Bariatric surgery status; Z79.01 Long term (current) use of anticoagulants; Z79.899 Other long term (current) drug therapy
CPT/HCPCS: 92960; 93656; 93657; 86900; 86901; 80053; 84443; 86850; C1759; C1769 ×2; C1894; C1760 ×3; C1731; C1733; C1766; C1730; C1732; J1644 ×3; J2250; J0330; J3010; J1171; J0131; J1885; J2704; J2371; J1938